=== PATIENT | female | born 1990 | race Caucasian/White ===

== ENCOUNTER 2024-07-14 05:03 | Inpatient (IN) | payer BC, SELFPAY ==
[2024-07-14] VITALS (57 sets, daily range): BP systolic 101–150; BP diastolic 45–101; PULSE 71–236; RESP 12–18; TEMP 36.4–37; O2SAT 97–100; BMI 35.2
--- OUTSIDE RECORDS SUMMARY | 2024-07-14 05:40 | XMS_ITS | Encounter Summary ---
Author Organization [facility] Health Address [address] [place] [address] Care Team Providers Care Curriculum Manager Name Role Phone Lala Riggs PA-C Primary Care Provider [phone] Lala Riggs PA-C Unavailable [phone] Marck Bonner MD Unavailable [phone] Haylie Yun [facility] Unavailable Unavailable Reason for Visit * Reason Onset Date Comments MEDICATION REFILL 09/25/2023 Encounter Details Date Type Department Care Team (Late st Contact Info) Description 09/25/2023 Refill [facility] Behavioral Health [address] [place] [phone] Chelsie Monet, WASTE COTTON CLEANER-STEMHOLE BORER [address] [place], [place] [id number] MEDICATION REFILL Social History Tobacco Use Types Packs/Day Years Used Date Smoking Tobacco: Never Passive Smoke Exposure: Never Smokeless Tobacco: Never Alcohol Use Standard Drinks/Week Comments Not Currently 0 (1 standard drink = 0.6 oz pur e alcohol) AUDIT-C Answer Date Recorded Q1: How often do you have a drink containing alcohol? Never 06/15/2023 Q2: How many drinks containi ng alcohol do you have on a typical day when you are drinking? Patient does not drink Q3: How often do you have si x or more drinks on one occasion? Never 06/15/2023 Overall Financial Resource Strain (CARDIA) Answe r Date Recorded How hard is it for you to pa y for the very basics like food, housing, medical care, and heating? Not hard at all 09/08/2022 PHQ-2 Answer Date Recorded Patient Health Questionnaire-2 Score 0 08/25/2023 [facility] - Occupational Stress Questionnaire Answer Date Recorded Do you feel stress - tense, restless, nervous, or anxious, or unable to sleep at night because your mind is troubled all the time - these days? Not at all 09/08/2022 Hunger Vital Sign Answer Date Recorded Within the past 12 months, y ou worried that your food would run out before you got the money to buy more. Never true 09/09/19 Within the past 12 months, t he food you bought just didn't last and you didn't have money to get more. Never true 09/08/2022 PRAPARE - Transportation Answer Date Re corded In the past 12 months, has l ack of transportation kept you from medical appointments or from getting medications? No 08/30 In the past 12 months, has l ack of transportation kept you from meetings, work, or from getting things needed for daily living? No 09/08/2022 Housing Stability Vital Sign Answer Shashi e Recorded In the last 12 months, was t here a time when you were not able to pay the mortgage or rent on time? No 09/08/2022 In the last 12 months, how many places have you lived? 1 09/08/2022 In the last 12 months, was t here a time when you did not have a steady place to sleep or slept in a fdc (including now)? No 09/08/2022 Gloster Depression Scale Answer Date Recorded Gloster Depression Scale Total 10 09/17/2022 The thought of harming myself has occurred to me . Never 09/17/2022 Sex and Gender Information Value Date Recorded Sex Assigned at Female 09/09/2022 10:15 AM CDT Gender Identity Female 09/09/2022 10:15 AM CDT Sexual Orientation Straight 09/09/2022 10 :15 AM CDT documented as of this encounter Functional Status Functional Status Response Date of Assess ment Is person deaf or have serious hearing difficult y? No 09/08/2022 Is person blind or have serious difficulty seein g? No 09/08/2022 Does person have serious dif ficulty walking/climbing stairs? No 09/08/2022 Does person have difficulty dressing/bathing? No 09/08/2022 Does person have difficulty doing errands alone? No 09/08/2022 Cognitive Status Response Date of Assessm ent Does person have difficulty concentrating/remembering/making decisions? No 09/08/2022 documented as of this encounter Miscellaneous Notes * Telephone Encounter - Roshni Diaz RN - 09/25/2023 11:59 AM CDT Should have one refill due documented in this encounter Plan of Treatment Upcoming Encounters Date Type Department Care Team (Late st Contact Info) Description 08/08/2024 10:40 AM CDT Video Visit [facility] Behavioral Health [address] [place] [phone] Aron Allred MD [address] [place] [phone] Chelsie Monet, [employer] CLE[employer]ER-[employer] B[employer]ER [address] [place], [place] [phone] documented as of this encounter Visit Diagnoses Diagnosis Personality disorder (HCC) Unspecified personality disorder Anxiety with depression documented in this encounter Care Teams Curriculum Manager Relationship Specialty Start Date End Date Lala Riggs PA-C [facility] [place] [address] PCP - General Physician [employer] Newscast Producer 09/08/22 Lala Riggs PA-C [facility] [place] [address] Physician [employer]sc[employer] Producer 09/08/22 Marck Bonner MD [address] [address] Gastroenterology 02/09/15 Haylie Yun LCPC Behavioral Health Therapist 07/30/23 documented as of this encounter
--- OUTSIDE RECORDS SUMMARY | 2024-07-14 05:40 | XMS_ITS | Encounter Summary ---
Author Organization [facility] Address [address] [place] [address] Care Team Providers Care Rubber Engraver Name Role Phone Lala Riggs PA-C Primary Care Provider Lala Riggs PA-C Primary Care Provider [phone] Lala Riggs PA-C Unavailable [phone] Marck Bonner MD Unavailable [phone] Haylie Yun LCPC Unavailable Unavailable Reason for Visit * Reason Onset Date Comments MEDICATION REFILL 08/15/2019 Encounter Details Date Type Department Care Team (Late st Contact Info) Description 08/15/2019 Refill [facility] - Family Medicine [address] [place] [address] Lala Riggs PA-C [address] [place] [phone] MEDICATION REFILL Social History Tobacco Use Types Packs/Day Years Used Date Smoking Tobacco: Never Smokeless Tobacco: Never Alcohol Use Standard Drinks/Week Comments No 0 (1 standard drink = 0.6 oz pur e alcohol) Sex and Gender Information Value Date Recorded Sex Assigned at Female 09/09/2022 10:15 AM CDT Gender Identity Female 09/09/2022 10:15 AM CDT Sexual Orientation Straight 09/09/2022 10 :15 AM CDT documented as of this encounter Plan of Treatment Upcoming Encounters Date Type Department Care Team (Late st Contact Info) Description 08/08/2024 10:40 AM CDT Video Visit [facility] Behavioral Health [address] [place] [address] Aron Allred MD [address] [place] [phone] Chelsie Monet, DIRECTOR SPEECH AND HEARING-BAND HEAD SAW OPERATOR [address] [place] [address] documented as of this encounter Visit Diagnoses Not on filedocumented in this encounter Additional Health Concerns Infection Onset Date Last Indicated Resolved Time COVID-19 Under Investigation 04/17/2020 04/17/2020 04/19/2020 9:39 PM SPRINKLER FITTER COVID-19 Under Investigation 07/19/2020 07/19/2020 07/20/2020 3:42 AM SPRINKLER FITTER COVID-19 Under Investigation 05/03/2021 05/03/2021 05/04/2021 5:11 AM SPRINKLER FITTER COVID-19 Under Investigation 06/10/2021 06/10/2021 06/11/2021 1:46 PM SPRINKLER FITTER COVID-19 Confirmed 06/10/2021 06/10/2021 4:33 AM SPRINKLER FITTER COVID-19 Under Investigation 06/03/2023 06/03/2023 06/04/2023 5:11 AM SPRINKLER FITTER documented as of this encounter Care Teams Rubber Engraver Relationship Specialty Start Date End Date Lala Riggs PA-C [address] [place] [phone] PCP - General Physician Dredge Pipeman 10/18/12 09/07/22 Lala Riggs PA-C [address] [place] [phone] PCP - General Physician Dredge Pipeman 09/08/22 Lala Riggs PA-C [address] [place] [phone] Physician Dredge Pipeman 09/08/22 Marck Bonner MD [address] [address] Gastroenterology 02/09/15 Haylie Yun LC[facility] Behavioral Health Therapist 07/30/23 documented as of this encounter
--- OUTSIDE RECORDS SUMMARY | 2024-07-14 05:40 | XMS_ITS | Patient Health Summary ---
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 [facility] - 08/04/2023 12:34 PM LIVESTOCK PRODUCER HbA1c Interpretation: Normal: < 5.7% Pre-diabetes: 5.7-6.4% Diabetes: Equal to or greater than 6.5% Test results diagnostic of diabetes should be repeated for confirmation. Treatment target values recommended by ADA and other clinical organizations should be used to evaluate metabolic control in patients. This test should not replace glucose testing for patients with Type 1 diabetes, pediatric patients, or women. Falsely low HbA1c results may be observed in patients with clinical conditions that shorten erythrocyte life span or decrease mean erythrocyte age such as the presence of unstable hemoglobin variants, elevated hemoglobin F level or other causes of hemolytic anemia. HbA1c may not accurately reflect glycemic control when clinical conditions that affect erythrocyte survival are present. Severe Iron deficiency anemia may yield falsely high results. Hemoglobin A1c assay should not be used to diagnose or monitor diabetes in patients with malignancy, recent blood transfusion, chronic kidney or liver disease. This method may yield falsely low results when hemoglobin (HbF) exceeds 5% in the specimen. The Coffman Alinity assay for the measurement of HbA1c is a National Glycohemoglobin Standardization Program (NGSP) certified method. Lala Riggs PA-C LAB - CHEMISTRY DIDI VAZQUEZ Performing Organization Address City/State/[facility] Co de Phone Number [facility] [address] * (ABNORMAL) CBC WITH DIFFERENTIAL (08/04/2023 8:11 AM [facility]) Only the most recent of17 resultswithin the time period is included. [facility] Signature WBC 5.6 4.0 - 10.7 x10E9/L 08/04/2023 12:[address] [facility] RBC Count 5.00 3.90 - 5.20 x10E12/L 08/04/2023 12:[address] [facility] Hemoglobin 12.9 11.9 - 15.8 g/dL 08/04/2023 12:[address] [facility] Hematocrit 41.2 34.8 - 46.1 % 08/04/2023 12:[address] [facility] MCV 82.4 80.0 - 98.0 fL 08/04/2023 12:[address] [facility] MCH 25.8(L) 26.7 - 33.6 pg 08/04/2023 12:[address] [facility] MCHC 31.3(L) 31.7 - 36.3 g/dL 08/04/2023 12:[address] [facility] RDW-CV 14.2 11.3 - 14.8 % 08/04/2023 12:[address] [facility] Platelet Count 258 150 - 420 x10E9/L 08/04/2023 12:[address] [facility] MPV 9.8 7.8 - 11.4 fL 08/04/2023 12:[address] [facility] Neutrophil % 56.3 41.0 - 74.0 % 08/04/2023 12:[address] [facility] Lymphocyte % 32.3 17.0 - 47.0 % 08/04/2023 12:[address] [facility] Monocyte % 6.4 3.0 - 11.0 % 08/04/2023 12:[address] [facility] Eosinophil % 3.4 0.0 - 7.0 % 08/04/2023 12:[address] [facility] Basophil % 1.2 0.0 - 1.6 % 08/04/2023 12:[address] [facility] Immature Granulocytes % 0.4 0.0 - 1.0 % 08/04/2023 12:[address] [facility] Neutrophil Absolute 3.17 1.60 - 7.50 x10E9/L 08/04/2023 12:[address] [facility] Lymphocyte Absolute 1.82 1.00 - 4.40 x10E9/L 08/04/2023 12:[address] [facility] Monocyte Absolute 0.36 0.15 - 1.00 x10E9/L 08/04/2023 12:[address] [facility] Eosinophil Absolute 0.19 0.00 - 0.60 x10E9/L 08/04/2023 12:[address] [facility] Basophil Absolute 0.07 0.00 - 0.13 x10E9/L 08/04/2023 12:[address] [facility] Blood BLOOD SPECIMEN / Unknown Venipuncture / Unknown 08/04/2023 8:11 AM LIVESTOCK PRODUCER 08/04/2023 8:11 AM [facility] Lala Riggs PA-C LAB - HEMATOLOGY ORD ERABLES Performing Organization Address [facility]/State/[facility] Co de Phone Number [facility] [address] * (ABNORMAL) LIPID PROFILE (08/04/2023 8:11 AM [facility]) Only the most recent of6 resultswithin the time period is included. Cholesterol 183 <200 mg/dL 08/04/2023 12:[address] [facility] Triglycerides 247(H) <150 mg/dL 08/04/2023 12:[address] [facility] HDL Cholesterol 31(L) >40 mg/dL 12:[address] [facility] Chol HDL Ratio 5.9 1.0 - 6.0 08/04/2023 12:[address] [facility] LDL Calculated 103 65 - 130 mg/dL 08/04/2023 12:[address] [facility] VLDL Calculated 49(H) <=30 mg/dL 12:[address] [facility] Blood BLOOD SPECIMEN / Unknown Venipuncture / Unknown 08/04/2023 8:11 AM [facility] 08/04/2023 8:11 AM [facility] - 08/04/2023 12:46 PM [facility] Lipid Profile Comment: CHOLESTEROL LEVEL..................CLINICAL INTERPRETATION LESS THAN 200 MG/DL..............................DESIRABLE 200-239 MG/DL..............................BORDERLINE HIGH GREATER THAN 240 MG/DL................................HIGH LDL-CHOLESTEROL LEVEL..............CLINICAL INTERPRETATION LESS THAN 100 MG/DL................................OPTIMAL 100-129 MG/DL.................................NEAR OPTIMAL GREATER THAN 160 MG/DL...........................HIGH RISK HDL RISK LEVEL GREATER THEN 60 MG/DL............................DECREASED 40-60 MG/DL........................................AVERAGE LESS THAN 40 MG/DL...............................INCREASED TRIGLYCERIDE LEVEL..................CLINICAL INTERPRETATION LESS THAN 150 MG/DL...............................DESIRABLE 150-199 MG/DL...............................BORDERLINE HIGH 200-499 MG/DL..........................................HIGH GREATER THAN 500..................................VERY HIGH THE NATIONAL CHOLESTEROL EDUCATION PROGRAM HAS SET THE ABOVE GUIDELINES (REFERANCE VALUES) FOR CHOLESTEROL AND HDL. RISK ASSOCIATED WITH CHOLESTEROL/HDL RATIOS RISK....................MALE RATIO.............FEMALE RATIO 1/2 AVERAGE.................<3.4.......................<3.3 LOW RISK.................... 4.0 ...................... 3.8 AVERAGE..................... 5.0 ...................... 4.5 2X AVERAGE.................. 9.5 ...................... 7.0 3X AVERAGE...................>23........................>11 Lala Riggs PA-C LAB - CHEMISTRY DIDI VAZQUEZ [facility] [address] [place], [place] [id number] [place] [address] * PAP IG LB +HPV APTIMA REFLEX 16,18/45 (07/07/2023 12:15 PM LIVESTOCK PRODUCER) Diagnosis [facility] INSURANCE BILL Comment:NEGATIVE FOR INTRAEP ITHELIAL LESION OR MALIGNANCY. Specimen Adequacy [facility] INSURANCE BILL Comment: Satisfactory for evaluation. Endocervical and/or squamous metaplastic cells (endocervical component) are present. Clinician Provided ICD10 [facility] INSURANCE BILL Comment: Z01.419 Z30.41 Performed by [facility] INSURANCE BILL Comment:Sue Pate, Cyto technologist (ASCP) Comment . [facility] INSURANCE BILL Note [facility] INSURANCE BILL Comment: The Pap smear is a screening test designed to aid in the detection of premalignant and malignant conditions of the uterine cervix. It is not a diagnostic procedure and should not be used as the sole means of detecting cervical cancer. Both false-positive and false-negative reports do occur. . [facility] CPT Code Automation [facility] INSURANCE BILL Comment: This liquid based ThinPrep(R) pap test was screened with the use of an image guided system. Human papillomavirus Aptima Negative Negative [facility] INSURANCE BILL Comment: This nucleic acid amplification test detects fourteen high-risk HPV types (16,18,31,33,35,39,45,51,52,56,58,59,66,68) without differentiation. HPV Genotype Reflexed [facility] INSURANCE BILL Comment:Criteria not met, HP V Genotype not performed. PART OF UTERINE CERVIX / Unknown 07/07/2023 12:15 PM LIVESTOCK PRODUCER 07/07/2023 Narrative [facility] INSURANCE BILL - 07/10/2023 1:10 PM LIVESTOCK PRODUCER LMP / Prev Treat...[id number];None Other..............Oral Contraceptives No. of containers..01 ThinPrep Vial Resulting Agency Comment Lab Testing performed at: [facility] [phone] Amaya FARRAR LAB - PATHOLOGY/CYTO LOGY ORDERABLES [facility] INSURANCE BILL [address] [place] [address] * STREP A SCREEN - POINT OF CARE (AMB) [facility] (06/03/2023 10:46 AM LIVESTOCK PRODUCER) Only the most recent of3 resultswithin the time period is included. Strep A Rapid POCT Negative Negative [facility] Strep A Rapid Screen Internal Control POCT Present [facility] Throat ENTIRE THROAT (SURFACE REGION OF NECK) / Unknown 06/03/2023 10:46 AM LIVESTOCK PRODUCER Lala Riggs PA-C LAB - POINT OF CARE ORDERABLES [facility] [address] [phone] * SARS-COV-2 (COVID-19)+INFLUENZA A+B+RSV PCR (06/03/2023 10:36 AM LIVESTOCK PRODUCER) Pathologist [facility] COVID-19 PCR Not detected Not detected 06/04/2023 5:11 AM LIVESTOCK PRODUCER [facility] Influenza A PCR Not detected Not detected 06/04/2023 5:11 AM LIVESTOCK PRODUCER [facility] Influenza B PCR Not detected Not detected 06/04/2023 5:11 AM LIVESTOCK PRODUCER [facility] RSV PCR Not detected Not detected 06/04/2023 5:11 AM LIVESTOCK PRODUCER [facility] Microbiology SPECIMEN FROM NASOPHARYNGEAL STRUCTURE / Unknown Collection / Unknown 06/03/2023 10:36 AM LIVESTOCK PRODUCER 06/03/2023 10:36 AM LIVESTOCK PRODUCER Narrative [facility]CRO[facility] - 06/04/2023 5:11 AM LIVESTOCK PRODUCER This nucleic acid amplification assay has been authorized by the Food and Drug administration (FDA) under an Emergency Use Authorization (EUA). This test is only authorized for the duration of time the declaration that circumstances exist justifying the authorization of emergency use of in vitro diagnostic tests for detection of SARS-CoV-2 virus and/or diagnosis of COVID-19 infection under section 564(b)(1) of the Act, 21 U.S.C 360bbb-3 (b)(1), unless the authorization is terminated or revoked sooner. Fact Sheets for this EUA assay are available upon request. Lala Riggs PA-C LAB - MICROBIOLOGY O RDERABLES [facility] [address] [place], [place] [address] [place] [address] * (ABNORMAL) VITAMIN B12 FOLATE PANEL (11/03/2022 1:42 PM CDT) Vitamin B12 824(H) 213 - 816 pg/mL 11/03/2022 5:50 PM CDT [facility] Folate 16.5 7.0 - 31.4 ng/mL 11/03/2022 5:50 PM CDT [facility] Blood BLOOD SPECIMEN / Unknown Venipuncture / Unknown 11/03/2022 1:42 PM CDT 11/03/2022 1:42 PM CDT Lala Riggs PA-C LAB - CHEMISTRY DIDI VAZQUEZ Performing Organization Address [facility]/ZIP Co de Phone Number [facility] [address] * IMAGING RADIOLOGY XRAY RESULTS ORDER (09/12/2022 4:03 PM CDT) Anatomical Region Laterality Modality Other Narrative 09/12/2022 4:03 PM CDT Ordered by an unspecified provider. Scanned Document IMAGING * PATHOLOGY TISSUE EXAM (STL) (09/09/2022 6:56 AM CDT) Case Report Surgical Pathology Report Case: [id number] Authorizing Provider: Dyana Elizalde MD Collected: 09/09/2022 06:56 AM Ordering Location: [facility] 5 LDR Received: 09/10/2022 08:01 AM Pathologist: Nubia Harrison MD Specimen: Placenta 09/11/2022 10:18 AM CDT [facility] Final Diagnosis Placenta, vaginal delivery - Small, hypermature placenta (weight <10th percentile for gestational age) - Lymphohistiocytic villitis (see comment) - Minimal acute chorioamnionitis (maternal inflammatory response stage 2, grade 1) - Minimal acute chorionic plate vasculitis ( inflammatory response stage 1, grade 1) 09/11/2022 10:18 AM [facility] Clinical History The patient is a 32-year-old woman at 31 weeks, 5 days gestation, with premature rupture of membranes and labor. Procedure: vaginal delivery. 09/11/2022 10:18 AM [facility] Gross Description The specimen is identified with the patient's name and date of . Received fresh and placed in formalin, specimen A, placenta is a placental disc with attached umbilical cord and membranes. The umbilical cord is inserted centrally, 5.5 cm from margin measuring 15.3 cm long and a pink-burns diameter. The cord is trivascular and appropriately coiled. The membranes are inserted marginally and pink-burns, mildly translucent. The surface is blue-purple with normal vasculature. The maternal surface is disrupted but appears complete with scattered burns discoloration involving 5% of the surface, eccentrically. The placental disc is 264 g, 15 x 12.5 x 2.2 cm. Sectioning shows red-brown, spongy cut surfaces. Knitter Mechanic sections submitted as follows: A1-umbilical cord and membrane roll, A2-placental disc central, A3-placental disc peripheral, A4-ubrns maternal surface discoloration. LJ 09/11/2022 10:18 AM [facility] Microscopic Description Microscopic examination substantiates the above diagnosis. In most cases of villitis, an etiology cannot be established; however, villitis may be seen in infections spread hematogenously from mother to fetus such as CMV, syphilis, toxoplasmosis, and others. Infant and maternal serologies may be helpful if clinically indicated. 09/11/2022 10:18 AM [facility] Disclaimer All histochemical and/or immunohistochemical results are interpreted with controls that demonstrate appropriate staining reactions before reporting results. Note on use of immunocytochemistry reagents: This test was developed and its performance characteristic determined by [facility], Department of Laboratory Medicine. It has not been cleared or approved by the U.S. Food and Drug Administration (FDA). The FDA has determined that such clearance or approval is not necessary. The test is used for clinical purpose. It should not be regarded as investigational or for research. This laboratory is certified to perform high complexity testing. The performance characteristics of the IHC/KING assays have been validated on formalin-fixed paraffin embedded tissues only. The assays have not been validated on decalcified tissues. Results should be interpreted with caution. 09/11/2022 10:18 AM CDT [facility] Embedded Images 09/11/2022 10:18 AM CDT [facility] Pathology/Cytolo gy ENTIRE PLACENTA / Unknown Collection / Unknown 09/09/2022 6:56 AM CDT 09/10/2022 8:01 AM CDT Dyana Elizalde MD LAB - PATHOLOGY/CYTO LOGY ORDERABLES [facility] [address] [place] [address] * (ABNORMAL) BLOOD GASES CORD MEGHAN (ISTAT) (09/09/2022 6:27 AM CDT) pH Cord Venous POCT 7.36 7.28 - 7.40 pH 09/30/2022 11:59 AM CDT [facility] pCO2 Cord Venous POCT 30.8(L) 35 - 45 mm hg 09/30/2022 11:59 AM T [facility] pO2 Cord Venous POCT 29 22 - 33 mm hg 09/30/2022 11:59 AM T [facility] HCO3 Cord Arterial POCT 17.2(L) 22 - 24 mmol/L 09/30/2022 11:59 AM CDT [facility] BE Cord Venous POCT Calc -7(L) -6.4 - 1.6 mmol/L 09/30/2022 11:59 AM CDT [facility] TCO2 Cord Venous POCT 18(L) 22 - 30 mmol/L 09/30/2022 11:59 AM [facility] O2 Saturation % Cord Venous Calc POCT 54 % 09/30/2022 11:59 AM CDT [facility] Site CORD MEGHAN 09/30/2022 11:59 AM CDT [facility] Sample iSTAT CORD MEGHAN 09/30/2022 11:59 AM CDT [facility] Blood CORD BLOOD SPECIMEN / Unknown 09/09/2022 6:27 AM CDT 09/30/2022 11:59 AM CDT Ambrosio Bee MD LAB - POINT OF CARE ORDERABLES Performing Organization Address City/[facility]/ZIP Co de Phone Number [facility] [address] [place] [address] * (ABNORMAL) BLOOD GASES CORD ART (ISTAT) (09/09/2022 6:23 AM CDT) pH Cord Arterial POCT 7.30 7.20 - 7.34 pH 09/30/2022 11:59 AM CDT [facility] pCO2 Cord Arterial POCT 39.8(L) 45 - 55 mm hg 09/30/2022 11:59 AM CDT [facility] pO2 Cord Arterial POCT 24 12 - 25 mm hg 09/30/2022 11:59 AM CDT [facility] HCO3 Cord Arterial POCT 19.4(L) 22 - 24 mmol/L 09/30/2022 11:59 AM CDT [facility] BE Cord Arterial POCT -7(L) -2.9 - 8.3 mmol/L 09/30/2022 11:59 AM CDT [facility] TCO2 Cord Arterial POCT 21 mmol/L 09/30/2022 11:59 AM CDT [facility] O2 Saturation Cord Art % Calc POCT 36 % 09/30/2022 11:59 AM CDT [facility] Site CORD ART 09/30/2022 11:59 AM CDT [facility] Sample iSTAT CORD ART 09/30/2022 11:59 AM CDT [facility] Blood CORD BLOOD SPECIMEN / Unknown 09/09/2022 6:23 AM CDT 09/30/2022 11:59 AM CDT Ambrosio Bee MD LAB - POINT OF CARE ORDERABLES Performing Organization Address City/[facility]/ZIP Co de Phone Number [facility] [address] [place] [address] * DRUG ABUSE URINE PANEL (09/08/2022 4:53 PM CDT) Amphetamines Screen Urine Not detected Not detected 09/08/2022 5:26 PM CDT [facility] Barbiturates Screen Urine Not detected Not detected 09/08/2022 5:26 PM CDT [facility] Benzodiazepines Screen Urine Not detected Not detected 09/08/2022 5:26 PM CDT [facility] Cocaine Screen Urine Not detected Not detected 09/08/2022 5:26 PM CDT [facility] Fentanyl Urine Not detected Not detected 09/08/2022 5:26 PM CDT [facility] Methadone Screen Urine Not detected Not detected 09/08/2022 5:26 PM CDT [facility] Opiate Screen Urine Not detected Not detected 09/08/2022 5:26 PM CDT [facility] Phencyclidine Screen Urine Not detected Not detected 09/08/2022 5:26 PM CDT [facility] Urine URINE / Unknown Collection / Unknown 09/08/2022 4:53 PM CDT 09/08/2022 5:00 PM CDT Narrative [facility] - 09/08/2022 5:26 PM CDT This drug screen is designed for MEDICAL purposes only. It is not to be used for legal purposes, including but not limited to worker's comp, police investigations, occupational issues, child custody, etc. Any positive result is only presumptive and must be confirmed with a separate confirmatory test ordered by the physician. Drug Screening Test Cutoff Values: AMPHETAMINES 1000 ng/mL BARBITURATES 200 ng/mL BENZODIAZEPINES 200 ng/mL COCAINE 300 ng/mL FENTANYL 1 ng/mL METHADONE 300 ng/mL OPIATES 300 ng/mL PHENCYCLIDINE(PCP) 25 ng/mL Ambrosio Bee MD LAB - URINE CHEMISTR Y ORDERABLES [facility] [address] [place] [address] * (ABNORMAL) URINE MICROSCOPIC ONLY REFLEX TO CULTURE (09/08/2022 4:48 PM CDT) Only the most recent of5 resultswithin the time period is included. Reflex Status Culture not indicated 09/08/2022 5:19 PM CDT [facility] RBC UA 3-5 0 - 5 # /hpf 09/08/2022 5:19 PM CDT [facility] WBC UA 0-5 0 - 5 # /hpf 09/08/2022 5:19 PM CDT [facility] Bacteria UA Trace(A) None Seen 09/08/2022 5:19 PM CDT [facility] Squamous Epithelial Cells None Seen 0 - 5 /hpf 09/08/2022 5:19 PM CDT [facility] Mucus UA 1+ /LPF 09/08/2022 5:19 PM CDT [facility] Urine URINE SPECIMEN OBTAINED BY CLEAN CATCH PROCEDURE / Unknown Collection / Unknown 09/08/2022 4:48 PM CDT 09/08/2022 4:59 PM CDT [facility] - 09/08/2022 5:19 PM CDT Ambrosio Bee MD LAB - URINALYSIS ORD ERABLES [facility] [address] [place], [place] [id number] * (ABNORMAL) URINALYSIS REFLEX MICROSCOPIC REFLEX CULTURE (09/08/2022 4:48 PM CDT) Only the most recent of5 resultswithin the time period is included. Color UA Colorless(A) Straw, Yellow 09/08/2022 5:14 PM CDT [facility] Clarity UA Clear Clear 09/08/2022 5:14 PM CDT [facility] Glucose UA Negative Negative 09/08/2022 5:14 PM CDT [facility] Bilirubin UA Negative Negative 09/08/2022 5:14 PM CDT [facility] Ketone UA 1+(A) Negative 09/08/2022 5:14 PM CDT [facility] Specific [place] UA 1.006 1.005 - 1.030 09/08/2022 5:14 PM CDT [facility] Blood UA 1+(A) Negative 09/08/2022 5:14 PM CDT [facility] pH UA 7.0 5.0 - 8.0 pH 09/08/2022 5:14 PM CDT [facility] Protein UA Negative Negative 09/08/2022 5:14 PM CDT [facility] Urobilinogen UA Negative Negative mg/dL 09/08/2022 5:14 PM CDT [facility] Nitrite UA Negative Negative 09/08/2022 5:14 PM CDT [facility] Leukocyte UA Negative Negative 09/08/2022 5:14 PM CDT [facility] Urine Microscopy Urine microscopy to follow 09/08/2022 5:14 PM CDT [facility] Reflex Status Culture not indicated 09/08/2022 5:14 PM CDT [facility] Urine URINE SPECIMEN OBTAINED BY CLEAN CATCH PROCEDURE / Unknown Collection / Unknown 09/08/2022 4:48 PM CDT 09/08/2022 4:59 PM CDT Narrative [facility] - 09/08/2022 5:14 PM CDT Ambrosio Bee MD LAB - URINALYSIS ORD ERABLES Performing Organization Address City/[facility] Co de Phone Number [facility] [address] [place] [place] [address] [phone] * TRICHOMONAS RAPID TEST (09/08/2022 4:48 PM CDT) Trichomonas Rapid Test Negative Negative 09/08/2022 5:30 PM CDT [facility] Microbiology VAGINAL SWAB / Unknown Collection / Unknown 09/08/2022 4:48 PM CDT 09/08/2022 4:59 PM CDT Ambrosio Bee MD LAB - MICROBIOLOGY O RDERABLES Performing Organization Address City/[facility]/ZIP Co de Phone Number [facility] [address] [place] [id number] * CHLAMYDIA + GC AMPLIFIED PROBE (09/08/2022 4:47 PM CDT) Chlamydia Amplified Probe Negative Negative 09/09/2022 2:18 AM CDT [facility] GC Amplified Probe Negative Negative 09/09/2022 2:18 AM CDT [facility] Microbiology ENTIRE VAGINA / Unknown Collection / Unknown 09/08/2022 4:47 PM CDT 09/08/2022 4:59 PM CDT Narrative [facility] - 09/09/2022 2:18 AM CDT Results based on detection/no detection of ribosomal RNA by amplified method. Ambrosio Bee MD LAB - MICROBIOLOGY O RDERANAI Performing Organization Address City/[facility]/ZIP Co de Phone Number [facility] [address] [place] [address], [facility] [phone] * BLOOD TYPE VERIFICATION (09/08/2022 4:09 PM CDT) ABO Rh O POS 09/08/2022 5:18 PM CDT [facility] Comment:History checked. Blood Bank BLOOD SPECIMEN / Unknown Lab Venipuncture / Unknown 09/08/2022 4:09 PM CDT 09/08/2022 4:16 PM CDT Eliu Zaidi MD LAB - BLOOD BANK ORD ERABLES Performing Organization Address [facility] Co de Phone Number [facility] [address] [place] [address] * FERRITIN (09/08/2022 4:07 PM CDT) Ferritin 36 5 - 204 ng/mL 09/08/2022 4:58 PM CDT [facility] Blood BLOOD SPECIMEN / Unknown Lab Venipuncture / Unknown 09/08/2022 4:07 PM CDT 09/08/2022 4:16 PM CDT Ambrosio Bee MD LAB - CHEMISTRY DIDI VAZQUEZ Performing Organization Address [facility] Co de Phone Number [facility] [address] [place] [address] * TYPE + SCREEN PANEL (ALL [facility] except [facility]) (09/08/2022 4:03 PM CDT) ABO Rh O POS 09/08/2022 5:18 PM CDT [facility] Comment:No history; collect retype. Antibody Screen NEG 5:18 PM CDT [facility] Blood Bank BLOOD SPECIMEN / Unknown Lab Venipuncture / Unknown 09/08/2022 4:03 PM CDT 09/08/2022 4:16 PM CDT Ambrosio Bee MD LAB - BLOOD BANK ORD ERABLES Performing Organization Address City/[facility]/ZIP Co de Phone Number [facility] [address] [place] [address], [facility] [phone] * CULTURE STREP B (09/08/2022 11:38 AM CDT) Culture Strep B Negative for beta-hemolytic Streptococcus Group B LEVON 09/12/2022 8:49 AM CDT [facility] Microbiology MISCELLANEOUS SAMPLES / Unknown Collection / Unknown 09/08/2022 11:38 AM CDT 09/08/2022 11:46 AM CDT Perla Mendez MD LAB - MICROBIOLOGY O RDERABLES Performing Organization Address City/[facility]/ZIP Co de Phone Number [facility] [address] [place] [address], [facility] [phone] * (ABNORMAL) RUPTURE OF MEMBRANES EVAL (09/08/2022 10:10 AM CDT) RUPTURE OF MEMBRANES POSITIVE(A ) NEGATIVE 09/08/2022 10:37 AM CDT [facility] Fluid VAGINAL SWAB / Unknown Collection / Unknown 09/08/2022 10:10 AM CDT 09/08/2022 10:13 AM CDT Narrative AM LABORATORY - 09/08/2022 10:37 AM CDT A rupture of membranes diagnosis should not be based on any single test and the results should be interpreted in conjunction with other clinical information. This test may report positive results in patients with intact membranes and therefore decisions to induce labor should not be based solely on the ROM Plus test results. ROM Plus test kits will function properly with trace amounts of blood in the sample. Significant amounts of bloody discharge may cause the test to malfunction and testing of these samples is not recommended. Elevated serum, urine, cord blood, and amniotic fluid as well as maternal serum levels of AFP have been reported in the literature in various developmental disorders such as neural-tube defects, hypothyroidism, autoimmune states, congenital heart defects, cystic fibrosis, etc. ROM Plus has not been evaluated for potential interference in these conditions. Perla Mendez MD LAB - BODY FLUID ORD ERABLES [facility] [address] [place] [address], [facility] * (ABNORMAL) URINALYSIS - POCT (IP) BEAKER INTERFACE (11/18/2021 10:46 AM CDT) Color UA POCT Yellow Straw, Yellow, Light Yellow 11/18/2021 10:41 AM CDT [facility] Clarity UA POCT Clear Clear 2 10:41 AM CDT [facility] Specific [place] UA POCT 1.020 1.005 - 1.030 11/18/2021 10:41 AM CDT [facility] pH UA POCT 7.5 5.0 - 8.5 pH 11/18/2021 10:41 AM CDT [facility] Protein UA POCT Negative Negative 2 10:41 AM CDT [facility] Blood UA POCT Trace-intac t Negative, Trace-lysed , Trace-intac t 11/18/2021 10:41 AM CDT [facility] Leukocyte UA POCT Trace(A) Negative 11/18/2021 10:41 AM CDT [facility] Nitrite UA POCT Negative Negative 2 10:41 AM CDT [facility] Glucose UA POCT Negative Negative 2 10:41 AM CDT [facility] Ketone UA POCT Negative Negative 11/18/2021 10:41 AM CDT [facility] Bilirubin UA POCT Negative Negative 11/18/2021 10:41 AM CDT [facility] Urobilinogen UA POCT 0.2 0.2 - 1.0 EU/dL 11/18/2021 10:41 AM T [facility] Urine URINE / Unknown 11/18/2021 1 0:46 AM CDT 11/18/2021 10:41 AM CDT Alberta Bowie METALLIC YARN SLITTING MACHINE OPERATOR-ANATOMIC PATHOLOGIST LAB - POINT OF CARE ORDERABLES Performing Organization Address [facility]/ZIP Co de Phone Number [facility] [address] * URINALYSIS - POCT (IP) NOTIFICATION (11/18/2021 10:33 AM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 BREAST LEFT LTD 03/10/2017 9:09 AM HISTORY: Other chest pain. FINDINGS AND IMPRESSION: Limited left breast ultrasound performed at 1 o'clock to 5 o'clock. The patient has pain in the area. No underlying pathology is seen. Edited by Kelly Herman on 03/10/2017 9:17 AM Lala Riggs PA-C US ORDERABLES * CARDIAC RHYTHM STRIP ORDER (02/16/2017 1:51 PM CDT) Only the most recent of2 resultswithin the time period is included. Narrative 02/16/2017 1:51 PM CDT Ordered by an unspecified provider. Scanned Document CARDIAC SERVICES ORD ERABLES * CULTURE THROAT (12/05/2016 9:23 AM CDT) Culture Growth of normal oropharyngeal paty LEVON 12/09/2016 8:15 AM CDT [facility] Microbiology ENTIRE THROAT (SURFACE REGION OF NECK) / Unknown Collection / Unknown 12/05/2016 9:23 AM CDT 12/05/2016 9:23 AM CDT Lala Riggs PA-C LAB - MICROBIOLOGY O RDERABLES Performing Organization Address City/State/[facility] Co de Phone Number [facility] [address] * VITAMIN D 25-HYDROXY (11/15/2016 7:37 AM CDT) Vitamin D, 25 Hydroxy 51.9 30 - 100 ng/mL 11/15/2016 10:13 AM CDT [facility] Blood BLOOD SPECIMEN / Unknown Lab Venipuncture / Unknown 11/15/2016 7:37 AM CDT 11/15/2016 7:47 AM CDT Narrative [facility] - 11/15/2016 10:13 AM CDT Reference Values: The recommendation for 25-Hydroxy Vitamin D clinical decision points are as follows: Deficient < 20.0 ng/mL Insufficient 20.0-29.9 ng/mL Sufficient >= 30.0 ng/mL Reference: The Endocrine Society Clinical Practice Guidelines. 2011 If the 25-Hydroxy Vitamin D results are inconsistent with clinical evidence, it is recommended that follow-up testing using a method such as LC-MS/MS be performed to confirm the result. Lala Riggs PA-C LAB - CHEMISTRY DIDI VAZQUEZ Performing Organization Address [facility] Co de Phone Number [facility] [address] * (ABNORMAL) PT-INR (11/15/2016 7:37 AM CDT) PT 9.8 9.6 - 11.5 sec 11/15/2016 8:00 AM CDT [facility] INR 0.95(L) 2 - 3 11/15/2016 8:00 AM CDT [facility] Blood BLOOD SPECIMEN / Unknown Lab Venipuncture / Unknown 11/15/2016 7:37 AM CDT 11/15/2016 7:47 AM CDT Narrative [facility] - 11/15/2016 8:00 AM CDT Recommended therapeutic INR ranges for Oral Anticoagulant Therapy: 2.0-3.0 For prevention of Thrombosis or Embolism and treatment of Venous Thrombosis. 2.5- 3.5 for prevention of Recurrent Embolism or treatment of patients with Mechanical Prosthetic Heart Valves. Lala Riggs PA-C LAB - COAGULATION OR DERABLES Performing Organization Address [facility] Co de Phone Number [facility] [address] * VITAMIN B12 (11/15/2016 7:37 AM CDT) Pathologist [facility] Vitamin B12 281 213 - 816 pg/mL 11/15/2016 10:13 AM CDT [facility] Blood BLOOD SPECIMEN / Unknown Lab Venipuncture / Unknown 11/15/2016 7:37 AM CDT 11/15/2016 7:47 AM CDT Lala Riggs PA-C LAB - CHEMISTRY ORDHema VAZQUEZ Performing Organization Address [facility] Co de Phone Number [facility] [address] [place] [address] * LIPASE BLOOD (08/22/2016 3:03 AM CDT) Only the most recent of2 resultswithin the time period is included. Lipase 30 8 - 78 U/L 08/22/2016 3:31 AM CDT [facility] Blood BLOOD SPECIMEN / Unknown Lab Venipuncture / Unknown 08/22/2016 3:03 AM CDT 08/22/2016 3:06 AM CDT Carlo Thornton DO LAB - CHEMISTRY ORDE TAYLOR Performing Organization Address City/[facility] Co de Phone Number [facility] [address] [place] [address] * AMYLASE BLOOD (08/22/2016 3:03 AM CDT) Only the most recent of2 resultswithin the time period is included. Amylase 71 25 - 125 U/L 08/22/2016 3:31 AM CDT [facility] Blood BLOOD SPECIMEN / Unknown Lab Venipuncture / Unknown 08/22/2016 3:03 AM CDT 08/22/2016 3:06 AM CDT Carlo Thornton LAB - CHEMISTRY ORDHema VAZQUEZ Performing Organization Address [facility] Co de Phone Number [facility] [address] [place] [address] * HCG BLOOD QUALITATIVE (08/22/2016 3:03 AM CDT) Only the most recent of2 resultswithin the time period is included. Pathologist [facility] HCG Qual Serum Negative Negative 08/22/2016 3:21 AM CDT [facility] Blood BLOOD SPECIMEN / Unknown Lab Venipuncture / Unknown 08/22/2016 3:03 AM CDT 08/22/2016 3:06 AM CDT Carlo Thornton DO LAB - CHEMISTRY ORDHema VAZQUEZ Performing Organization Address [facility] Co de Phone Number [facility] [address] [place] [address] * XR HAND 3+ VW RIGHT (04/04/2016 9:22 AM CDT) Anatomical Region Laterality Modality Wrist / Hand Radiographic Concepcion ging 04/04/2016 9:29 AM CDT Narrative 04/04/2016 9:51 AM CDT RIGHT HAND, (THREE VIEWS): 04/04/2016 INDICATION: Pain, no trauma. Normal bony alignment. Normal bone density. No fracture. SUMMARY: Negative right hand. Procedure Note Luis Carlos Carlson MD - 04/04/2016 RIGHT HAND, (THREE VIEWS): 04/04/2016 INDICATION: Pain, no trauma. Normal bony alignment. Normal bone density. No fracture. SUMMARY: Negative right hand. Lala Riggs PA-C DIAGNOSTIC IMAGING O RDERABLES * PAP SMEAR IG RFLX HPV ASCU (PO REF LAB) (08/01/2015 3:29 PM LIVESTOCK PRODUCER) Only the most recent of2 resultswithin the time period is included. Diagnosis [facility] INSURANCE BILL Comment:NEGATIVE FOR INTRAEP ITHELIAL LESION AND MALIGNANCY. Specimen Adequacy [facility] INSURANCE BILL Comment: Satisfactory for evaluation. Endocervical and/or squamous metaplastic cells (endocervical component) are present. Clinician Provided ICD10 [facility] INSURANCE BILL Comment: Z01.419 Z30.8 Performed by [facility] INSURANCE BILL Comment:Misty Marsh, Public Relations Coordinator (ASCP) Comment . [facility] INSURANCE BILL Note [facility] INSURANCE BILL Comment: The Pap smear is a screening test designed to aid in the detection of premalignant and malignant conditions of the uterine cervix. It is not a diagnostic procedure and should not be used as the sole means of detecting cervical cancer. Both false-positive and false-negative reports do occur. . [facility] CPT Code Automation [facility] INSURANCE BILL Comment: This liquid based ThinPrep(R) pap test was screened with the use of an image guided system. Note [facility] INSURANCE BILL Comment: The HPV DNA reflex criteria were not met with this specimen result therefore, no HPV testing was performed. . Miscellaneous samples (specimen) ENTIRE ENDOCERVIX / Unknown 08/01/2015 3:29 PM LIVESTOCK PRODUCER 08/03/2015 9:38 PM LIVESTOCK PRODUCER Narrative [facility] INSURANCE BILL - 08/06/2015 5:12 PM LIVESTOCK PRODUCER Source.............Cervical;Endocervical LMP / Prev Treat...UWV=[id number] Other..............Oral Contraceptives No. of containers..01 CYTYC Thin Prep Vial Resulting Agency Comment [facility] [address] BOWENS [id number] Amaya Oliver METALLIC YARN SLITTING MACHINE OPERATOR-ANATOMIC PATHOLOGIST LAB - PATHOLOGY/CYTO LOGY ORDERABLES [facility] INSURANCE BILL * C-REACTIVE PROTEIN (07/13/2015 9:47 AM LIVESTOCK PRODUCER) Pathologist [facility] C-Reactive Protein 0.21 0.00 - 0.50 mg/dL 07/13/2015 12:46 PM LIVESTOCK PRODUCER [facility] Blood BLOOD SPECIMEN / Unknown Lab Venipuncture / Unknown 07/13/2015 9:47 AM LIVESTOCK PRODUCER 07/13/2015 9:58 AM LIVESTOCK PRODUCER Stan Patel MD LAB - CHEMISTRY DIDI VAZQUEZ [facility] [address] * CBC W/O DIFFERENTIAL (07/13/2015 9:47 AM LIVESTOCK PRODUCER) Pathologist [facility] WBC 5.3 4.0 - 10.0 x10^9/L 07/13/2015 10:[address] [facility] RBC 4.82 3.93 - 5.22 x10^12/L 07/13/2015 10:[address] [facility] Hemoglobin 14.1 11.2 - 15.7 gm/dL 07/13/2015 10:[address] [facility] Hematocrit 42.7 34.1 - 44.9 % 07/13/2015 10:[address] [facility] MCV 88.6 78.0 - 100.0 fl 07/13/2015 10:[address] [facility] MCH 29.3 25.6 - 34.0 pg 07/13/2015 10:[address] [facility] MCHC 33.0 32.3 - 36.5 gm/dL 07/13/2015 10:[address] [facility] RDW 13.0 11.6 - 14.4 % 07/13/2015 10:[address] [facility] MPV 9.4 9.4 - 12.4 fl 07/13/2015 10:[address] [facility] Platelet Count 241 163 - 369 x10^9/L 07/13/2015 10:[address] [facility] Blood BLOOD SPECIMEN / Unknown Lab Venipuncture / Unknown 07/13/2015 9:47 AM LIVESTOCK PRODUCER 07/13/2015 9:58 AM [facility] Stan Patel MD LAB - HEMATOLOGY ORD ERABLES Performing Organization Address City/State/[facility] Co de Phone Number [facility] [address] * ECHOCARDIOGRAM 2D WITH DOPPLER (AKA ECHO CONSULT) (07/13/2015 12:00 AM LIVESTOCK PRODUCER) 07/13/2015 Narrative [facility] - 07/13/2015 12:55 PM [place]OCK [place] [address] Transthoracic Echocardiogram 2D, M-mode, Doppler, and Color Doppler Patient: KD SANDOVAL MR #: [id number] : 1990 Age: 25 years Gender: Female Study date: 13-Jul-2015 Status: Outpatient Room: - Height: 59.8 in Weight: 112.2 lb BSA: 1.46 m Referring Physician: Stan Patel MD, [facility] Patternmaker Apprentice Wood: Stan Patel MD, [facility] Editorial Clerk: Tahir Jain BRITNEY Impressions: Structurally normal heart Summary: - Clinical question: CHEST PAIN - Left ventricle: Ejection fraction was estimated in the range of 60 % to 65 %. - Right ventricle: Estimated peak pressure was 15 mmHg. - Impressions: Structurally normal heart Comparisons: No prior study for comparison. Clinical question: CHEST PAIN History: Cardiovascular history: FAMILY HISTORY HEART PROBLEM, Procedure: The procedure was performed in the echo lab. This was a routine study. The transthoracic approach was used. The study included complete 2D imaging, M-mode, complete spectral Doppler, and color Doppler. The heart rate was 99 bpm, at the start of the study. Systolic blood pressure was 127 mmHg, at the start of the study. Diastolic blood pressure was 80 mmHg, at the start of the study. Images were obtained from the parasternal, apical, subcostal, and suprasternal notch acoustic windows. Image quality was good. Left ventricle: Size was normal. Ejection fraction was estimated in the range of 60 % to 65 %. There were no regional wall motion abnormalities. Doppler: The transmitral flow pattern was normal. Aortic valve: The valve was trileaflet. Leaflets exhibited normal cuspal separation. Aorta: The root exhibited normal size. Mitral valve: Valve structure was normal. Left atrium: Size was normal. Pulmonary veins: The pulmonary veins were normal sized. Doppler: Doppler flow pattern was normal in the pulmonary vein(s). Right ventricle: The size was normal. Systolic function was normal. Doppler: Estimated peak pressure was 15 mmHg. Pulmonic valve: Leaflets exhibited normal thickness, no calcification, and normal cuspal separation. Doppler: The transpulmonic velocity was within the normal range. There was no regurgitation. Tricuspid valve: The valve structure was normal. Right atrium: Size was normal. Systemic veins: IVC: The inferior vena cava was normal in size and course. Respirophasic changes were normal. Pericardium: There was no pericardial effusion. The pericardium was normal in appearance. System measurement tables 2D EF(Cube): 67.7 % ESV(Cube): 20.8 ml LVEF MOD A4C: 63.5 % SV(Cube): 43.6 ml SV(Teich): 42.1 ml IVSd: 0.7 cm IVSs: 1 cm LVEDV MOD A4C: 51.3 ml LVESV MOD A4C: 18.7 ml LVOT Diam: 2 cm LVPWd: 0.8 cm LVPWs: 1 cm LVs Mass: 79.6 g LVs Mass Index: 54.5 g/m2 RVIDd: 2.4 cm LAAs A2C: 9.4 cm2 LAAs A4C: 9.4 cm2 LAESV A-L A2C: 21.1 ml LAESV A-L A4C: 19.5 ml LAESV Index (A-L): 14.4 ml/m2 LAESV MOD A2C: 20.8 ml LAESV MOD A4C: 16.7 ml LAESV(A-L): 21 ml LALs A2C: 3.6 cm LALs A4C: 3.8 cm CW AV VTI: 20.3 cm AV Vmax: 1.1 m/s AV maxP.7 mmHg AV meanP.7 mmHg RAP: 5 mmHg TR Vmax: 1.7 m/s TR maxP mmHg MM AV Cusp: 2.2 cm AoR Diam; (2D): 2.6 cm LVIDd: 4 cm LVIDs: 2.5 cm PW CHANNING (VTI): 2.2 cm2 CHANNING Vmax: 2.2 cm2 LVCI Dopp: 3.1 l/minm2 LVCO Dopp: 4.5 L/min LVOT VTI: 14.2 cm LVOT Vmax: 0.8 m/s LVOT Vmean: 0.5 m/s LVOT maxP.5 mmHg LVOT meanP.3 mmHg LVSI Dopp: 29.9 ml/m2 LVSV Dopp: 43.7 ml E/E': 3.9 MV A Everett: 0.7 m/s MV Dec Coosa: 5.1 m/s2 MV DecT: 161.8 ms MV E Everett: 0.8 m/s MV E/A Ratio: 1.2 MV PHT: 59.3 ms MVA By PHT: 3.7 cm2 PV Vmax: 0.8 m/s PV maxP.5 mmHg RVSP: 16 mmHg HR: 102.6 BPM All images and data generated for this procedure were personally reviewed by me. Prepared and Electronically Authenticated Stan Patel MD, [facility] 13-Jul-2015 13:01:10 Procedure Note Unknown, Provider - 07/13/[address] [address] Transthoracic Echocardiogram 2D, M-mode, Doppler, and Color Doppler Patient: KD SANDOVAL MR #: [id number] : 1990 Age: 25 years Gender: Female Study date: 13-Jul-2015 Status: Outpatient Room: - Height: 59.8 in Weight: 112.2 lb BSA: 1.46 m Referring Physician: Stan Patel MD, [facility] Patternmaker Apprentice Wood: Stan Patel MD, [facility] Editorial Clerk: Tahir Jain BRITNEY Impressions: Structurally normal heart Summary: - Clinical question: CHEST PAIN - Left ventricle: Ejection fraction was estimated in the range of 60 % to65 %. - Right ventricle: Estimated peak pressure was 15 mmHg. - Impressions: Structurally normal heart Comparisons: No prior study for comparison. Clinical question: CHEST PAIN History: Cardiovascular history: FAMILY HISTORY HEART PROBLEM, Procedure: The procedure was performed in the echo lab. This was aroutine study. The transthoracic approach was used. The study included [id number] imaging, M-mode, complete spectral Doppler, and color Doppler. The heartrate was 99 bpm, at the start of the study. Systolic blood pressure was 127mmHg, at the start of the study. Diastolic blood pressure was 80 mmHg, at the startof the study. Images were obtained from the parasternal, apical, subcostal,and suprasternal notch acoustic windows. Image quality was good. Left ventricle: Size was normal. Ejection fraction was estimated in therange of 60 % to 65 %. There were no regional wall motion abnormalities.Doppler: The transmitral flow pattern was normal. Aortic valve: The valve was trileaflet. Leaflets exhibited normal cuspal separation. Aorta: The root exhibited normal size. Mitral valve: Valve structure was normal. Left atrium: Size was normal. Pulmonary veins: The pulmonary veins were normal sized. Doppler: Dopplerflow pattern was normal in the pulmonary vein(s). Right ventricle: The size was normal. Systolic function was normal.Doppler: Estimated peak pressure was 15 mmHg. Pulmonic valve: Leaflets exhibited normal thickness, no calcification,and normal cuspal separation. Doppler: The transpulmonic velocity was withinthe normal range. There was no regurgitation. Tricuspid valve: The valve structure was normal. Right atrium: Size was normal. Systemic veins: IVC: The inferior vena cava was normal in size andcourse. Respirophasic changes were normal. Pericardium: There was no pericardial effusion. The pericardium was normalin appearance. System measurement tables 2D EF(Cube): 67.7 % ESV(Cube): 20.8 ml LVEF MOD A4C: 63.5 % SV(Cube): 43.6 ml SV(Teich): 42.1 ml IVSd: 0.7 cm IVSs: 1 cm LVEDV MOD A4C: 51.3 ml LVESV MOD A4C: 18.7 ml LVOT Diam: 2 cm LVPWd: 0.8 cm LVPWs: 1 cm LVs Mass: 79.6 g LVs Mass Index: 54.5 g/m2 RVIDd: 2.4 cm LAAs A2C: 9.4 cm2 LAAs A4C: 9.4 cm2 LAESV A-L A2C: 21.1 ml LAESV A-L A4C: 19.5 ml LAESV Index (A-L): 14.4 ml/m2 LAESV MOD A2C: 20.8 ml LAESV MOD A4C: 16.7 ml LAESV(A-L): 21 ml LALs A2C: 3.6 cm LALs A4C: 3.8 cm CW AV VTI: 20.3 cm AV Vmax: 1.1 m/s AV maxP.7 mmHg AV meanP.7 mmHg RAP: 5 mmHg TR Vmax: 1.7 m/s TR maxP mmHg MM AV Cusp: 2.2 cm AoR Diam; (2D): 2.6 cm LVIDd: 4 cm LVIDs: 2.5 cm PW CHANNING (VTI): 2.2 cm2 CHANNING Vmax: 2.2 cm2 LVCI Dopp: 3.1 l/minm2 LVCO Dopp: 4.5 L/min LVOT VTI: 14.2 cm LVOT Vmax: 0.8 m/s LVOT Vmean: 0.5 m/s LVOT maxP.5 mmHg LVOT meanP.3 mmHg LVSI Dopp: 29.9 ml/m2 LVSV Dopp: 43.7 ml E/E': 3.9 MV A Everett: 0.7 m/s MV Dec Coosa: 5.1 m/s2 MV DecT: 161.8 ms MV E Everett: 0.8 m/s MV E/A Ratio: 1.2 MV PHT: 59.3 ms MVA By PHT: 3.7 cm2 PV Vmax: 0.8 m/s PV maxP.5 mmHg RVSP: 16 mmHg HR: 102.6 BPM All images and data generated for this procedure were personally reviewedby mt. Prepared and Electronically Authenticated tSan Patel MD, [facility] 13-Jul-2015 13:01:10 Stan Patel MD ECHO ORDERABLES [facility] * CT CHEST WITH CONTRAST (07/03/2015 5:13 PM LIVESTOCK PRODUCER) Anatomical Region Laterality Modality Chest Computed Tomogra phy 07/03/2015 5:26 PM LIVESTOCK PRODUCER Impressions 07/03/2015 5:54 PM LIVESTOCK PRODUCER 1. No acute-appearing intrapulmonary pathology. 2. No visible evidence of pulmonary emboli even though this study is not tailored for pulmonary emboli. 3. No visible evidence of dissection or aneurysm. 4. Old granulomatous disease left lung image 22 series 3. Narrative 07/03/2015 5:54 PM LIVESTOCK PRODUCER CHEST CT WITH CONTRAST 07/03/2015 HISTORY: Pain deep in the chest, burning sensation upper back. CONTRAST: 95 cc Omnipaque 300 IV. FINDINGS: No focal consolidation. No pleural or pericardial effusion is identified. No evidence of hilar or mediastinal lymphadenopathy. Axillary and supraclavicular regions are normal. Visualized upper abdominal organs appear unremarkable. Degenerative changes of spine are noted. Thoracic aortic atherosclerosis without aneurysm. Procedure Note Jose Winter MD - 07/03/[address] WITH CONTRAST 07/03/2015 HISTORY: Pain deep in the chest, burning sensation upper back. CONTRAST: 95 cc Omnipaque 300 IV. FINDINGS: No focal consolidation. No pleural or pericardial effusion is identified. No evidence of hilar or mediastinal lymphadenopathy. Axillary and supraclavicular regions are normal. Visualized upper abdominal organs appear unremarkable. Degenerative changes of spine are noted. Thoracic aortic atherosclerosis without aneurysm. IMPRESSION 1. No acute-appearing intrapulmonary pathology. 2. No visible evidence of pulmonary emboli even though this study is not tailored for pulmonary emboli. 3. No visible evidence of dissection or aneurysm. 4. Old granulomatous disease left lung image 22 series 3. Lala Riggs PA-C CT ORDERABLES * GROSS + MICRO EXAM (ILL) (02/21/2015 10:18 AM CDT) Case Report Surgical Pathology Report Case: [id number] Authorizing Provider: Marck Bonner MD Collected: 02/21/2015 10:18 AM Ordering Location: [facility] Received: 02/21/2015 12:03 PM Pathologist: Samm Fox MD Specimen: Antrum/Gastric Biopsy , Bx antrum r/o h pylori 02/22/2015 12:00 PM CDT [facility] Final Diagnosis STOMACH, ANTRUM, ENDOSCOPIC BIOPSY: - ANTRAL MUCOSA WITH SPARSE CHRONIC INFLAMMATION. NO ACUTE INFLAMMATION. - DIFF-QUIK STAIN IS NEGATIVE FOR HELICOBACTER PYLORI ORGANISMS. HC/dc 02/22/2015 12:00 PM T [facility] Clinical History Gastroesophageal reflux disease, biopsy of normal appearing gastric mucosa to rule out H.pylori. Operative Procedure: Esophagogastroduod enoscopy. 02/22/2015 12:00 PM CDT [facility] Gross Description Received in formalin, labeled Aud, Kd and bx antrum r/o H.pylori , is a burns soft fragment measuring 0.2 x 0.1 x <0.1 cm. Totally submitted as received in cassette A1. HC/dc 02/22/2015 12:00 PM T [facility] Microscopic Description Microscopic examination is performed and substantiates the above diagnosis. 02/22/2015 12:00 PM CDT [facility] Special Stains Diff quik stain reveals no H-pylori organisms. Positive control is appropriately stained. 02/22/2015 12:00 PM T [facility] Testing Performed By Performed by [facility] [place]. [address]. 02/22/2015 12:00 PM T [facility] Disclaimer H&E slides and special stains prepared at [facility], [place]. [address] (CLIA# [id number]) unless otherwise specified. 02/22/2015 12:00 PM CDT [facility] Pathology/Cytolo gy GASTRIC ANTRAL BIOPSY SPECIMEN / Unknown 02/21/2015 10:18 AM CDT 02/21/2015 12:03 PM CDT Comment:Report to Dr Bonner and Lala BRUCE Marck Bonner MD LAB - PATHOLOGY/CYTO LOGY ORDERABLES [facility] [address] * CT ABDOMEN AND PELVIS W IV CONTRAST [id number] (02/18/2015 6:06 PM CDT) Anatomical Region Laterality Modality Abdomen, Pelvis Computed Tomogra phy 02/18/2015 6:30 PM CDT Impressions 02/18/2015 6:45 PM CDT Lung bases are clear. No focal hepatic, splenic, pancreatic, renal, adrenal mass. Normal appendix. No diverticulitis or bowel obstruction. Few peripherally enhancing fluid-filled loops of small bowel are present. These are nonspecific and may represent enteritis. Symmetric renal cortical enhancement with excretion of contrast in the ureters which are symmetric and normal in size. Limited evaluation of bladder which is grossly unremarkable. trace free fluid present within the pelvis. Preliminary report printed to the ER 02/18/2015 at 1833h. Narrative 02/18/2015 6:[address] ABDOMEN AND PELVIS WITH CONTRAST 02/18/2015 INDICATION: Right side abdominal pain for one month. CONTRAST DOSE: 95 cc Omnipaque 300 IV. COMPARISON: No comparison. Procedure Note Kaden Jewell MD - 02/18/2015 CT ABDOMEN AND PELVIS WITH CONTRAST 02/18/2015 INDICATION: Right side abdominal pain for one month. CONTRAST DOSE: 95 cc Omnipaque 300 IV. COMPARISON: No comparison. IMPRESSION Lung bases are clear. No focal hepatic, splenic, pancreatic, renal, adrenal mass. Normal appendix. No diverticulitis or bowel obstruction. Few peripherally enhancing fluid-filled loops of small bowel are present. These are nonspecific and may represent enteritis. Symmetric renal cortical enhancement with excretion of contrast in the ureters which are symmetric and normal in size. Limited evaluation of bladder which is grossly unremarkable. trace free fluid present within the pelvis. Preliminary report printed to the ER 02/18/2015 at 1833h. Javad Barrientos MD CT ORDERABLES * [place] [id number] (02/12/2015 12:35 PM CDT) Anatomical Region Laterality Modality Abdomen Nuclear Medicine 02/12/2015 3:03 PM CDT Impressions 02/12/2015 3:26 PM CDT 1. Negative HIDA with CCK. 2. No evidence of cystic or common bile duct obstruction. 3. Normal GBEF of 69% (normal is 35% and above.) Narrative 02/12/2015 3:26 PM CDT HIDA WITH CCK 02/12/2015 CLINICAL HISTORY: Nausea, abdominal pain. DOSE: 5.5 mCi of technetium 99m mebrofenin and 1 mcg of CCK. FINDINGS: Study demonstrates normal extraction of radiopharmaceutical by liver. Gallbladder was visualized by 30 minutes. Activity was noted in small bowel by 35 minutes. Calculated gallbladder ejection fraction is 69% (normal is 35% and above). Procedure Note Anel Goodwin MD - 02/12/2015 HIDA WITH CCK 02/12/2015 CLINICAL HISTORY: Nausea, abdominal pain. DOSE: 5.5 mCi of technetium 99m mebrofenin and 1 mcg of CCK. FINDINGS: Study demonstrates normal extraction of radiopharmaceutical by liver. Gallbladder was visualized by 30 minutes. Activity was noted in small bowel by 35 minutes. Calculated gallbladder ejection fraction is 69% (normal is 35% and above). IMPRESSION 1. Negative HIDA with CCK. 2. No evidence of cystic or common bile duct obstruction. 3. Normal GBEF of 69% (normal is 35% and above.) Marck Bonner MD NM ORDERABLES * US ABDOMEN COMPLETE (02/07/2015 8:10 AM CDT) Anatomical Region Laterality Modality Abdomen Ultrasound 02/07/2015 8:57 AM CDT Narrative 02/07/2015 9:25 AM CDT ULTRASOUND ABDOMEN 02/07/2015: INDICATION: Indigestion. FINDINGS: Pancreas is obscured by bowel gas. Visualized liver parenchyma is homogeneous. Gallbladder has a normal ultrasound appearance. No gallstones. No thickening of the gallbladder wall. Common bile duct is of normal caliber at 3.9 mm. Right kidney measures 10.4 x 3.7 x 4.9 cm. Left kidney measures 9.8 x 4.9 x 4.5 cm. No hydronephrosis. Spine is normal in size. There is a 2 cm septated cyst within the spleen consistent with benign process. Vena cava is patent at the level of the liver. Aorta is of normal caliber. SUMMARY: 2 cm benign cyst in the spleen, exam otherwise negative. Procedure Note Luis Carlos Carlson MD - 02/07/2015 ULTRASOUND ABDOMEN 02/07/2015: INDICATION: Indigestion. FINDINGS: Pancreas is obscured by bowel gas. Visualized liver parenchyma is homogeneous. Gallbladder has a normal ultrasound appearance. No gallstones. No thickening of the gallbladder wall. Common bile duct is of normal caliber at 3.9 mm. Right kidney measures 10.4 x 3.7 x 4.9 cm. Left kidney measures 9.8 x 4.9 x 4.5 cm. No hydronephrosis. Spine is normal in size. There is a 2 cm septated cyst within the spleen consistent with benign process. Vena cava is patent at the level of the liver. Aorta is of normal caliber. SUMMARY: 2 cm benign cyst in the spleen, exam otherwise negative. Llaa Riggs PA-C US ORDERABLES * HPV DNA PROBE HIGH RISK (07/28/2014 10:47 AM LIVESTOCK PRODUCER) Pathologist [facility] Human papillomavirus High Risk Negative Negative [facility] INSURANCE BILL Comment: This high-risk HPV test detects thirteen high-risk types (16/18/31/33/35/39/45/51/52/56/58/59/68) without differentiation. . 07/28/2014 10:4 7 AM LIVESTOCK PRODUCER 07/29/2014 3:23 AM LIVESTOCK PRODUCER Narrative [facility] - 08/05/2014 4:11 PM LIVESTOCK PRODUCER Source.............Cervical;Endocervical LMP / Prev Treat...[id number] No. of containers..01 CYTYC Thin Prep Vial Resulting Agency [facility] [phone] Amaya Oliver METALLIC YARN SLITTING MACHINE OPERATOR-ANATOMIC PATHOLOGIST LAB - MICROBIOLOGY O RDERABLES [facility] INSURANCE BILL * MONONUCLEOSIS SCREEN (06/23/2014 10:07 AM LIVESTOCK PRODUCER) Pathologist [facility] Mononucleosis Screen Negative Negative 06/23/2014 4:42 PM LIVESTOCK PRODUCER [facility] Blood BLOOD SPECIMEN / Unknown Venipuncture / Unknown 06/23/2014 10:07 AM LIVESTOCK PRODUCER 06/23/2014 10:09 AM LIVESTOCK PRODUCER Lala Riggs PA-C LAB - CHEMISTRY MAEHema TAYLOR [facility] [address] * XR SPINE SCOLIOSIS 2 VW (10/19/2012) Anatomical Region Laterality Modality Spine Other Lala Riggs PA-C DIAGNOSTIC IMAGING O RDERABLES Care Teams Hand Laminator Relationship Specialty Start Date End Date Lala Riggs PA-C [address] [place] [address] [phone] PCP - General Physician Color Adviser 09/08/22 Lala Riggs PA-C [address] [place] [address] [phone] Physician Color Adviser 09/08/22 Marck Bonner MD [facility] [address] Gastroenterology 02/09/15 Haylie Yun LCPC Behavioral Health Therapist 07/30/23
--- OUTSIDE RECORDS SUMMARY | 2024-07-14 05:40 | XMS_ITS | Referral Summary ---
Author Organization [facility] Address [address] [place] [address] Care Team Providers Care Material Specialist Name Role Phone Lala Riggs PA-C Primary Care Provider [phone] Lala Riggs PA-C Unavailable [phone] Marck Bonner MD Unavailable [phone] Haylie Yun LCPC Unavailable Unavailable Source Comments [facility],non-owned Affiliates and Associated Physician Practices is amultiple site organization consisting of ambulatory clinics and hospital sitesin [place], [place], [place] and [place]. This disclosure is being madepursuant to the Care Everywhere program and may not contain all information available regarding this patient. Last updated 18.[facility] Encounters Date Type Department Care Team Description 06/29/2024 1:40 PM HOME SALES SERVICE PROFESSIONAL Video Visit [facility] [address] [place] [phone] Aron Allred MD Wennerstrom, Amber L, APRN-OKSANA ERRONEOUS ENCOUNTER--DISREGARD 06/15/2024 Travel 05/20/2024 Travel 05/20/2024 1:20 PM HOME SALES SERVICE PROFESSIONAL Office Visit [facility] [address] [place] [phone] Chelsie Monet APRN-OKSANA Anxiety with depression (Primary Dx); Personality disorder (HCC); Mental disorder affecting , antepartum (HCC); History of opioid abuse (HCC) from Last 3 Months Allergies No known active allergies Medications * Be aware that medications may not be up to date on this document. Alwaysverify current medications with the patient. Medication Sig Dispensed Refills Start Date End Date Status calcium carbonate (Tums) 500 MG chew tablet Take 1 (one) tablet by mouth daily with food 03/06/2022 Active omeprazole (PriLOSEC) 20 MG capsule Take 1 (one) capsule by mouth daily before breakfast Active Other OTC Iron 325mg takes one tablet daily Active Other OTC Amino acids takes one tablet daily Active Vit-Fe Fumarate-FA ( vitamin) 28-0.8 MG tablet Take 1 (one) tablet by mouth once daily Active aspirin (Aspirin) 81 MG chew tablet Take 1 (one) tablet by mouth once daily Active Other OTC stool softener as needed Active escitalopram (Lexapro) 20 MG tabletIndications:Pe rsonality disorder (HCC),Anxiety with depression Take 1 (one) tablet by mouth once daily 30 tablet 2 05/20/2024 Active Active Problems Patient Care Coordination No te Formatting of this note migh t be different from the original. [facility] PCP Change Request form faxed 05/12/18 Problem Noted Date Diagnosed Date Migraine without aura and wi thout status migrainosus, not intractable 01/09/2021 Anxiety and depression-doing online counseling 1 07/13/2017 Hypertriglyceridemia 01/24/2014 GERD (gastroesophageal reflux disease) 4 TOI (generalized anxiety disorder) Estimated Date of Delivery Comme nts Yes 08/12/2024 Resolved Problems Problem Noted Date Diagnosed Date Resolved Date Gestational hypertension, third trimester 09/18/2022 06/17/2023 Supervision of normal first , antepartum 09/08/2022 09/11/2022 Leakage of amniotic fluid 09/08/2022 Anxiety 07/02/2015 05/12/2018 Atypical chest pain 01/24/2014 05/14/20 16 Immunizations Name Administration Dates Next Due Covid Moderna primary monova lent 12+ yr 0.5mL 07/10/2020,06/12/2020 DTP/HIB 07/10/1993, 3,1992,08/08 DTaP VACCINE IM (6wk-6yrs) 12/06/1997,,1992,10/10,1992 HEP B VACCINE, PED/ADOL 04/16/1993,02/11/1993, HIB-PRP-T 4 DOSE 07/10/1993, 3,1992,08/08 Human Papilloma Virus Humberto valent Vaccine 07/18/2009,03/14/2009,01/10/2009 INFLUENZA VACCINE 03/15/2019, 8,04/01/2017,03/15,04/01/2015,04/01/2014 INFLUENZA VACCINE, QUADR. (F LUZONE; FLULAVAL; FLUARIX; AFLURIA QUADRIVALENT; 6MO+), 0.5 ML (IIV4) 03/21/2020 MENINGOCOCAL MENINGITIS 12/26/2009 MENINGOCOCCAL CONJUGATE (MCV4P) 12/26/2009 MMR 09/10/2022(Deferred: Patient Condition - immune),12/06/1997,07/10/1993 POLIO IPV 12/06/1997, 4,1992,10/10,1992 POLIO OPV 12/06/1997, 4,1992,10/10,1992 PPD 09/24/2011 TDAP (7yrs+) 09/11/2022(Deferred: Patient Refused),11/30/2006 VARICELLA 01/10/2009,12/06/1997 Social History Tobacco Use Types Packs/Day Years [...] Recorded Patient Health Questionnaire-2 Score 0 12/10/2023 [facility] of Occupat ional Health - Occupational Stress [...] place to sleep or slept in a snf (including now)? No 09/08/2022 [place] Depression Scale Answer Date Recorded [place] Depression Scale Total 10 09/17/2022 The thought [...] Comments Blood Pressure 103/62 05/20/2024 1:27 PM HOME SALES SERVICE PROFESSIONAL Pulse 100 05/20/2024 1:27 PM HOME SALES SERVICE PROFESSIONAL Temperature 36.9 C (98.5 F) 12/10/2023 1:20 PM CDT Respiratory Rate 18 09/11/2022 9:55 AM CDT Oxygen Saturation 100% 12/10/2023 1:20 PM CDT Inhaled Oxygen Concentration - - Weight 76.4 kg (168 lb 6.4 oz) 05/20/2024 1:27 P M HOME SALES SERVICE PROFESSIONAL Height 154.2 cm (5' 0.71 ) 05/20/2024 1:27 PM CS T Body Mass Index 32.12 05/20/2024 1:27 PM HOME SALES SERVICE PROFESSIONAL Functional Status Functional Status Response Date of [...] person have difficulty concentrating/remembering/making decisions? No 09/08/2022 Plan of Treatment Upcoming Encounters Date Type Department Care Team (Late st Contact Info) Description 08/08/2024 10:40 AM CDT Video Visit [facility] [address] [place] [phone] Aron Allred MD [address] [place] [phone] Chelsie Monet, SHELLFISH WEIGHER-AERONAUTICAL ENGINEERING TECHNOLOGIST [address] [place] [address] Procedures Procedure Name Priority Date/Time Associated Diagnosis Comments PAP IG LB +HPV APTIMA REFLEX 16,1845 Routine 07/07/2023 12:15 PM HOME SALES SERVICE PROFESSIONAL Well woman exam with routine gynecological exam Encounter for surveillance of contraceptive pills CULTURE STREP B STAT 09/08/2022 11:38 AM CDT Supervision of normal first , antepartum (HCC) from Last 3 Months or Most Recently Relevant to Health Maintenance Results * PAP IG LB +HPV APTIMA REFLEX 16,18/45 (07/07/2023 12:15 PM HOME SALES SERVICE PROFESSIONAL) Diagnosis [facility] INSURANCE BILL Comment:NEGATIVE FOR INTRAEP ITHELIAL LESION OR MALIGNANCY. Specimen Adequacy [facility] INSURANCE BILL Comment: Satisfactory for evaluation. Endocervical and/or squamous metaplastic cells (endocervical component) are present. Clinician Provided ICD10 [facility] INSURANCE BILL Comment: Z01.419 Z30.41 Performed by [facility] INSURANCE BILL Comment:Sue Pate Cyto technologist (ASCP) Comment . [facility] INSURANCE BILL Note [facility] INSURANCE BILL Comment: The Pap smear is a screening test designed to aid in the detection of premalignant and malignant conditions of the uterine cervix. It is not a diagnostic procedure and should not be used as the sole means of detecting cervical cancer. Both false-positive and false-negative reports do occur. . IGLBP CPT Code Automation [facility] INSURANCE BILL Comment: This liquid based ThinPrep(R) pap test was screened with the use of an image guided system. Human papillomavirus Aptima Negative Negative [facility] INSURANCE BILL Comment: This nucleic acid amplification test detects fourteen high-risk HPV types (16,18,31,33,35,39,45,51,52,56,58,59,66,68) without differentiation. HPV Genotype Reflexed [facility] INSURANCE BILL Comment:Criteria not met, HP V Genotype not performed. PART OF UTERINE CERVIX / Unknown 07/07/2023 12:15 PM HOME SALES SERVICE PROFESSIONAL 07/07/2023 Narrative [facility] INSURANCE BILL - 07/10/2023 1:10 PM HOME SALES SERVICE PROFESSIONAL LMP / Prev Treat...[id number];None Other..............Oral Contraceptives No. of containers..01 ThinPrep Vial Resulting Agency Comment Lab Testing performed at: [employer] [phone] Amaya Oliver SHELLFISH WEIGHER-AERONAUTICAL ENGINEERING TECHNOLOGIST LAB - PATHOLOGY/CYTO LOGY ORDERABLES [facility] INSURANCE BILL [address] [place] [address] * CULTURE STREP B (09/08/2022 11:38 AM CDT) Culture Strep B Negative for beta-hemolytic Streptococcus Group [facility] 09/12/2022 8:49 AM CDT [facility] MICROBIOLOGY Microbiology MISCELLANEOUS SAMPLES / Unknown Collection / Unknown 09/08/2022 11:38 AM CDT 09/08/2022 11:46 AM CDT Perla Mendez MD LAB - MICROBIOLOGY O RDERABLES [facility] MICROBIOLOGY [address] [place], [place] [address], [facility] [phone] from Last 3 Months or Most Recently Relevant to Health Maintenance Administered Medications Advance Directives * Full Code (Latest Code Status on File) Date Activated Date Inactivated Comments 09/08/2022 3:54 PM 09/11/2022 4:12 PM Care Teams Material Specialist Relationship Specialty Start Date End Date Lala Riggs PA-C [address] [place] [address] [phone] PCP - General Physician Slurry Mixer 09/08/22 Lala Riggs PA-C [address] [place] [address] [phone] Physician Slurry Mixer 09/08/22 Marck Bonner MD [facility] [address] Gastroenterology 02/09/15 Haylie Yun LCPC Behavioral Health Therapist 07/30/23
--- OUTSIDE RECORDS SUMMARY | 2024-07-14 05:40 | XMS_ITS | Data Portability ---
Author Organization [facility] [place] Address [address] [place] [place] [address] [place] [address] Assessment No assessment recorded. Plan of Treatment Reminders Order Date Submit Date Provider Last Modified By Organization Details Last Modified Time Details Appointments U/S OB GROWTH 2024 11:00A M ULTRASOUND Not available Not available Not available OB ROUTINE 2024 11:30A M JW GALAN MD Not available Not available Not available Lab None recorde d. Referral None recorde d. Procedures None recorde d. Surgeries None recorde d. Imaging US, obstetr ic, follow- up 2024 025 [email or web address] [place], [facility] [address], [place], [address], 06/22/2024 21:50:37 Medication Orders None recorde d. Patient TargetsNo targets recorded. Patient InstructionsNo instructions recorded. Reason for Referral None Reported. Results Created Date Observation Date Name Description Value Unit Range Abnormal Flag Note LastModifiedBy Organization Detail LastModifiedTime 05/27/20 24 05/27/2024 HEMOG LOBIN (HGB) HGB 11.8 g/dL (based on docume nted legal sex) 11.6-1 5.4 Not Available [facility] (Lab) [address], [place], [address], 05/28/2024 13:49:05 05/27/20 24 05/27/2024 HEMAT OCRIT (HCT) HCT 37.0 % (based on docume nted legal sex) 34.0-4 5.0 Not Available [facility] (Lab) [address] [place], [address], 05/28/2024 13:49:06 05/27/20 24 05/27/2024 GTT - GESTA MUNA L SCREE N, ACOG OB glucose, 1 hour screen 112 mg/dL 70-135 Not Available [facility] (Lab) [address] [facility], [place], [address], 05/28/2024 13:49:06 05/27/20 24 05/27/2024 HIV 1/2 ANTIG EN/AN TIBOD Y, REFLE X CONFI RMATI ON HIV antigen/anti body Nonrea ctive nonrea ctive HIV-1 antig en and HIV-1 /HIV- 2 antib odies were not detec jerzy. No labor atory evide nce of HIV infec tion. Not Available [facility] (Lab) [address] [facility], [place], [address], 05/28/2024 13:49:06 05/27/20 24 05/27/2024 RPR SCREE N, REFLE X TITER /CONF IRMAT ION RPR screen Nonrea ctive nonrea ctive Not Available [facility] (Lab) [address] [facility], [place], [address], 05/28/2024 13:49:07 06/22/19 25 06/22/2024 US, obste tric follo w-up No observ ation record ed. [facility] [address], [place], [address], 06/22/2024 18:45:55 06/22/19 25 06/22/2024 US, obste tric, follo w-up No observ ation record ed. [email or web address], [place], [address], 06/22/2024 21:47:09 Result Notes None recorded. Problems Name Problem SNOMED Code Status Onset Date Resolution Date Notes Provider Name and Address Organization Details Recorded Time 00208578 Active 2023 Jo Chiu null, [facility] 4 16:32:18 Past history of gestation al hypertens ion 581201919 Active delivery at 31 weeks; preE vs Vannesa GALAN MD [address], [place], [address], [facility] 4 19:26:44 premature rupture of membranes 688658525 Active hx of in G1, delivery at 31 weeks JW GALAN MD [address], [place], [address], [facility] 4 19:27:02 premature rupture of membranes 077051751 Active hx of in G1, delivery at 31 weeks JW GALAN MD [address], [place], [address], [facility] 4 19:27:06 Past history of gestation al hypertens ion 655108596 Active delivery at 31 weeks; preE vs Vannesa GALAN MD [address], [place], [address], [facility] 4 19:27:08 Problem Notes None recorded. Procedures Surgical History Date Name Laterality Status Provider Name and Address Organization Details Recorded Time 07/07/2023 Date of Last Pap Smear completed Lucero Ayala [facility] 01/04/2024 14:58:25 Imaging Results Imaging Date Name Status [facility]Modified by [facility] Details LastModified Time 06/22/2024 US, obstetric, follow-up completed jose m Francois [address], [place], [address], 06/22/2024 18:45:55 06/22/2024 US, obstetric, follow-up completed [email or web address], [place], [address], 06/22/2024 21:47:09 Procedure Notes None recorded. Medical Equipment None Reported. Allergies No known drug allergies Medications Name Sig Start Date Stop Date Status Note LastModified by Organization Details LastModified Time sertraline 100 mg tablet TAKE ONE TABLET BY MOUTH DAILY 01/03 completed Not Available Not Available Not Available amoxicillin 875 mg tablet TAKE ONE TABLET BY MOUTH TWICE DAILY FOR 10 DAYS 01/03 completed Not Available Not Available Not Available benzonatate 100 mg capsule take 1-2 CAPSULES BY MOUTH THREE TIMES DAILY NEEDED 01/03 completed Not Available Not Available Not Available fluticasone propionate 50 mcg/actuati on nasal spray,suspe nsion SPRAY TWO SPRAYS in each nostril ONCE DAILY FOR SEVEN DAYS, THEN MAY adjust TO 1-2 SPRAYS in each nostril ONCE DAILY 01/03 completed Not Available Not Available Not Available amoxicillin 875 mg-potassiu m clavulanate 125 mg tablet TAKE 1 TABLET BY MOUTH TWICE DAILY WITH MORNING MEAL AND WITH EVENING MEAL FOR 10 DAYS 01/03 completed Not Available Not Available Not Available escitalopra m 10 mg tablet TAKE ONE TABLET BY MOUTH ONCE DAILY 01/03 completed Not Available Not Available Not Available escitalopra m 20 mg tablet TAKE 1 TABLET BY MOUTH ONCE DAILY active Not Available Not Available No t Available atomoxetine 25 mg capsule TAKE 1 CAPSULE BY MOUTH ONCE DAILY IN THE MORNING 01/03 completed Not Available Not Available Not Available aripiprazol e 5 mg tablet TAKE ONE TABLET BY MOUTH ONCE DAILY 01/03 completed Not Available Not Available Not Available omeprazole active Not Available Not Av ailable Not Available iron active Not Available Not Availa ble Not Available Amino Acid active Not Available Not Av ailable Not Available active Not Available Not Avai lable Not Available lisdexamfet amine 30 mg capsule TAKE 1 CAPSULE BY MOUTH ONCE DAILY IN THE MORNING 01/03 completed Not Available Not Available Not Available Vyvanse 40 mg capsule TAKE 1 CAPSULE BY MOUTH IN THE MORNING 01/03 completed Not Available Not Available Not Available quetiapine ER 50 mg tablet,exte nded release 24 hr TAKE ONE TABLET BY MOUTH AT BEDTIME 01/03 completed Not Available Not Available Not Available Estarylla 0.25 mg-35 mcg tablet TAKE 1 TABLET BY MOUTH ONCE DAILY 01/03 completed Not Available Not Available Not Available Vitals Date Recorded Body height Body mass index (BMI) Body weight Systolic blood pressure Diastolic blood pressure Provider Name and Address Organization Details Last Updated DateTime 05/27/2024 152.4 cm 32.8 kg/m2 22808.51 816 g 125 mm[Hg] 72 mm[Hg] [facility] 4 10:07:51 Date Recorded Body height Body mass index (BMI) Body weight Systolic blood pressure Diastolic blood pressure Provider Name and Address Organization Details Last Updated DateTime 06/08/2024 152.4 cm 34.1 kg/m2 75217.22 7802 g 115 mm[Hg] 78 mm[Hg] [facility] 5 14:59:12 Date Recorded Body height Body mass index (BMI) Body weight Systolic blood pressure Diastolic blood pressure Provider Name and Address Organization Details Last Updated DateTime 06/22/2024 152.4 cm 34.6 kg/m2 16457.85 g 106 mm[Hg] 68 mm[Hg] [facility] 5 16:03:09 Date Recorded Body height Body mass index (BMI) Body weight Systolic blood pressure Diastolic blood pressure Provider Name and Address Organization Details Last Updated DateTime 07/06/2024 152.4 cm 35.2 kg/m2 16864.63 g 125 mm[Hg] 86 mm[Hg] [facility] 5 12:51:50 Social History Question Answer Notes LastModified by Organizat ion Details LastModified Time What Is Your Level Of Alcohol Consumption? None Information not available 01/04/2024 Are You Blind Or Do You Have Difficulty Seeing? Yes Information not available 01/04/2024 What Is Your Level Of Caffeine Consumption? Occasional Information not available 01/04/2024 How Much Tobacco Do You Chew? None Information not available 01/04/2024 In The 14 Days Before Symptom Onset, Have You Had Close Contact With A Laboratory-confir med COVID-19 While That Case Was Ill? No Information not available 01/04/2024 In The 14 Days Before Symptom Onset, Have You Had Close Contact With A Person Who Is Under Investigation For COVID-19 While That Person Was Ill? No Information not available 01/04/2024 Have You Been To An Area Known To Be High Risk For COVID-19? No Information not available 01/04/2024 Are You Deaf Or Do You Have Serious Difficulty Hearing? No Information not available 01/04/2024 What Type Of Diet Are You Following? REGULAR Information not available 01/04/2024 What Is The Highest Grade Or Level Of School You Have Completed Or The Highest Degree You Have Received? 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 No Information not available 01/04/2024 Do You Use Protection During Sex? No Information not available 01/04/2024 Do You Use Your Seat Belt Or Car Seat Routinely? Yes Information not available 01/04/2024 Do You Have Smoke And Carbon Monoxide Detectors In Your Home? Yes Information not available 01/04/2024 How Much Tobacco Do You Smoke? No Information not available 01/04/2024 Do You Feel Stressed (tense, Restless, Nervous, Or Anxious, Or Unable To Sleep At Night)? [id number] Information not available 01/04/2024 Do You Use Any Illicit Or Recreational Drugs? No Information not available 01/04/2024 Do You Use Sunscreen Routinely? No Information not available 01/04/2024 Have You Used IV Drugs? No Information not available 01/04/2024 Sex: Unknown Functional Status Question Answer Note LastModified by Organization D etails LastModified Time Are you able to walk? YESWOREST Information not available 01/04/2024 What is your exercise level? Moderate Information not available 01/04/2024 Mental Status None recorded. Family History Relationship Description Onset Age of this Age Resolved Age Notes LastModified by Organization Details LastModified Time Mother Depressive disorder dswayne Not available 2023 14:44:40 Mother Mental disorder dswayne Not available 2023 14:44:40 Maternal Grandmother Anemia dswayne Not available 2023 14:44:40 Maternal Grandmother Heart disease dswayne Not available 2023 14:44:40 Sister Depressive disorder dswayne Not available 2023 14:44:40 Sister Mental disorder dswayne Not available 2023 14:44:40 Medical History Condition Response Acid Reflux (GERD) Y Headaches Y Depression/ depression Y Gynecological History Statement/Question Response Date of LMP 11/06/2023 On BCP's at Conception? N N Was last menstrual period normal N STIs/STDs N HPV Vaccine N Duration of Flow (days) 4 Current Control Method Age at First Child 32 Frequency of Cycle (Q days) 30 Sexually Active? Y Condoms Age of first menstrual cycle 14 Date of Last Pap Smear 07/07/2023 Sexual Problems? N Desired Control Method Condoms LMP Definite N Obstetrics History GPAL:G 2 P 0 0 0 1 Type Value Living 1 Total 2 Past Encounters Encounter ID Performer Location Encounter Start Date Encounter Closed Date Diagnosis/Indication Diagnosis SNOMED-CT Code Diagnosis ICD10 Code Diagnosis Note [id number] Aline Beltran [place] [address],[facility] [address] 01/04/2024 13:59:16 01/04/2024 14:27:46 [id number] JW GALAN MD [place] [address] [address] 01/04/2024 13:59:47 01/04/2024 17:42:02 test positive 647144551 Z32.01 1. Exam today within normal limits.2. Ultrasound today confirms GA and viability. EDC . GC/Clalbdi a testing done: will f/u as indicated. 4. ACOG guidelines and plan of care for reviewed with patient. All questions answered.5 . Return to office at 12 weeks for new OB visit6. Will need new OB labs at next visit.7. Genetic screening: desires. Past pregn bren history of gestational hypertension 058087398 Z87.59 - hx of gHTN vs preeclamps ia- discussed ldASA starting at 12 weeks Past pregn bren history of premature rupture of membranes 8002967492 48076 Z87.59 - at 31 weeks [id number] Aline Beltran [place] [address],[place] [address] 02/09/2024 09:39:19 02/09/2024 13:35:29 screening 749317416 Z36.87 Z3A.13 [id number] JW GALAN MD [place] [address],[place] [address] 02/09/2024 09:46:26 02/10/2024 02:21:09 screening 535654043 Z36.89 Routine an tenatal care 115204334 Z34.90 Past pregn bren history of gestational hypertension 171511211 Z87.59 - hx of gHTN vs preeclamps ia- discussed ldASA starting at 12 weeks pr emature rupture of membranes 339944168 O42.919 Gestation period, 13 weeks 68638986 Z3A.13 [id number] [facility] [address],[place] [address] 03/08/2024 10:54:30 03/08/2024 11:51:07 [id number] [facility] [address],[place] [address] 04/05/2024 09:51:19 04/05/2024 10:58:04 Gestation period, 21 weeks 58534517 Z3A.21 [id number] JW GALAN MD [place] [address],[place] [address] 04/05/2024 09:51:39 04/08/2024 12:13:26 Routine care 266125622 Z34.90 [id number] JW GALAN MD [place] [address],[place] [address] 05/04/2024 09:57:31 05/04/2024 10:56:42 Past history of gestational hypertension 558561166 Z87.59 - hx of gHTN vs preeclamps ia- discussed ldASA starting at 12 weeks pr emature rupture of membranes 992639425 O42.919 - at 31 weeks Gestation period, 25 weeks 77042488 Z3A.25 [id number] JW GALAN MD [place] [address],[place] [address] 05/27/2024 09:46:14 05/27/2024 10:35:50 Past history of gestational hypertension 437104280 Z87.59 - hx of gHTN vs preeclamps ia- discussed ldASA starting at 12 weeks pr emature rupture of membranes 181337678 O42.919 - at 31 weeks previously Gestation period, 29 weeks 36628131 Z3A.29 [id number] JW GALAN MD [place] [address],[place] [address] 06/08/2024 14:47:26 06/15/2024 03:05:04 Past history of gestational hypertension 234948825 Z87.59 - hx of gHTN vs preeclamps ia- discussed ldASA starting at 12 weeks Past pregn bren history of premature rupture of membranes 6282778393 41999 Z87.59 - at 31 weeks Gestation period, 31 weeks 18444820 Z3A.31 [id number] [facility] [address],[place] [address] 06/22/2024 15:19:14 06/22/2024 16:03:39 Medical examination for suspected condition 897815308 Z03.74 Z3A.32 [id number] JW GALAN MD [place] [address],[place] [address] 06/22/2024 15:19:34 06/23/2024 04:57:16 Breech presentation 5360780 O32.1XX9 - aislinn breech at 32 weeks- repeat growth/pre sentation at 36 weeks Gestation period, 32 weeks 8195486 Z3A.32 [id number] JW GALAN MD [place] [address],[place] [address] 07/06/2024 12:38:13 07/06/2024 14:13:55 Past history of gestational hypertension 184852474 Z87.59 - hx of gHTN vs preeclamps ia- discussed ldASA starting at 12 weeks Gestation period, 34 weeks 70757470 Z3A.34 Health Concerns Section Related Observation LastModified by Organization Detai ls LastModified Time None Recorded Concern Status LastModified by Organization Details LastModified Time None Recorded Advance Directives Directive None Recorded Payers Encounter Date Sequence Insurance Name Policy Number Policy Garcia Covered Member ID Garcia Member ID Guarantor Name 05/27/2024 1 [place] [id number] Charles Birchford [id number] Jessica Ball 06/08/2024 1 [place] [id number] Charles Ball [id number] Jessica Ball 06/22/2024 1 [place] [id number] Charles Ball [id number] Jessica Ball 06/22/2024 1 [place] [id number] Charles Ball [id number] Jessica Ball 07/06/2024 1 [place] [id number] Charles Ball [id number] Jessica Birchford OBGyn Episode Ob Episode Information Episode Created Date Number of Fetuses Patient Bloodtype Patient rh Status Prepregnancy Weight lbs Domestic Partner Domestic Partner Phone Father Name Tripe Cooker Status 01/04/20 24 1 CLOSED Fetus Data First Name Last Name Admitted to NICU Weight (g) Sex Living Outcome Pediatric Complications Fetus ID Race Codes Race Delivery Type 1672.39 [id number] M Prematur e [id number] Vaginal Delivery Kvng Calculation Initial Kvng Date Initial Exam Date Initial Exam Provider Initial Ultrasound Date Last Menstrual Period Date Ultra Sound Weeks Gestation 0 Eighteen To Twenty Week Kvng Update Ultra Sound Date Fundal Height At Umbil Quickening Date Ultra Sound Latest Weeks Gestation Final Kvng Confirmed By Final Kvng Confirmed Date Final Kvng Date Ultra Sound Latest Days Gestation 0 0 Menstrual History Last Menstrual Date Menses Monthly On Bcp Conception Prior Menses Frequency Hcg Plus Date Menarche Onset Age Delivery Information Delivery Date Delivery Type Labor Anesthesia Weeks Gestation Incision Type Labor Labor Length Hrs Delivered By Post Complications Tubal Sterilization Discharge Date Comments 3 Discharge Information Feeding Method Contraceptive Method Maternal HG B and HCT Levels Ob Episode Information Episode Created Date Number of Fetuses Patient Bloodtype Patient rh Status Prepregnancy Weight lbs Domestic Partner Domestic Partner Phone Father Name Tripe Cooker Status 02/09/20 24 1 O Positive 154 OPEN Fetus Data First Name Last Name Admitted to NICU Weight (g) Sex Living Outcome Pediatric Complications Fetus ID Race Codes Race Delivery Type [id number] Problems Problem Notes NIPT NL XX Problem Name Start Date End Date Resolution Snomed Code Not e Past history of gestational hypertension 951260598 delivery at 31 weeks; preE vs gHTN premature rupture of membranes 621797520 hx of i n G1, delivery at 31 weeks Kvng Calculation Initial Kvng Date Initial Exam Date Initial Exam Provider Initial Ultrasound Date Last Menstrual Period Date Ultra Sound Weeks Gestation 08/12/2024 01/04/2024 Dr Jw Galan 01/04/2024 11/06/2023 8 Eighteen To Twenty Week Kvng Update Ultra Sound Date Fundal Height At Umbil Quickening Date Ultra Sound Latest Weeks Gestation Final Kvng Confirmed By Final Kvng Confirmed Date Final Kvng Date Ultra Sound Latest Days Gestation 0 0 Pre- Flowsheet Flowsheet Date 02/09/2024 Lynch Score Blood Edema Fundus Height Fundus Units Glucose Ketones Leukocytes Nitrite Labor Signs Protein Cervic Dilation Cervic Effacement Cervic Station none none trace Type Weight in lbs Pre/Post Dialysis Refused Weight 155.398769494279 BP Diastolic BP Location Tested BP Systolic BP Type 76 106 Fetus Heart Rate Present Fetus Movement A No Comments Presents to establish prenat al care. Overall feeling well, minimal nausea, no cramping or bleeding. Discussed hydration and diet goals in . complicated by hx of gHTN vs preeclampsia and PPROM at 31 weeks. Hx of vaginal delivery with that . Discussed recommendation for ldASA ppx for preeclampsia. Hx of anxiety/depression, on lexapro. Ok to continue in . NT/NB wnl today, desires NIPT. Will draw with new OB labs. RTC 4 weeks. Flowsheet Date 03/08/2024 Lynch Score Blood Edema Fundus Height Fundus Units Glucose Ketones Leukocytes Nitrite Labor Signs Protein Cervic Dilation Cervic Effacement Cervic Station Type Weight in lbs Pre/Post Dialysis Refused Weight 156.218513848518 BP Diastolic BP Location Tested BP Systolic BP Type 70 105 Fetus Heart Rate Present Fetus Movement Comments Pts 16 week OB appt had to b e cancelled due to add on surgery with Dr. Ying's schedule. Pt took the day off for this appt. Pt has no complaints or concerns at this time. BP normal. Ultrasound completed to get FHR. To follow up at 20 week ultrasound/OB appt. To call with any changes/concerns in sxs. Pt verbalized undertsanding. MARCELO patino Flowsheet Date 04/05/2024 Lynch Score Blood Edema Fundus Height Fundus Units Glucose Ketones Leukocytes Nitrite Labor Signs Protein Cervic Dilation Cervic Effacement Cervic Station Type Weight in lbs Pre/Post Dialysis Refused BP Diastolic BP Location Tested BP Systolic BP Type Fetus Heart Rate Present Fetus Movement Comments Flowsheet Date 04/05/2024 Lynch Score Blood Edema Fundus Height Fundus Units Glucose Ketones Leukocytes Nitrite Labor Signs Protein Cervic Dilation Cervic Effacement Cervic Station neg none none trace Type Weight in lbs Pre/Post Dialysis Refused 160.303414781182 BP Diastolic BP Location Tested BP Systolic BP Type 67 L arm 100 sitting Fetus Heart Rate Present A Present Fetus Movement A Yes Comments Patient c/o of lower abdomen pressure, no bleeding. Good movement. Anatomy complete and normal, EFW 32%. BP well controlled, asymptomatic. RTC 4 weeks for routine care. Flowsheet Date 05/04/2024 Lynch Score Blood Edema Fundus Height Fundus Units Glucose Ketones Leukocytes Nitrite Labor Signs Protein Cervic Dilation Cervic Effacement Cervic Station none Type Weight in lbs Pre/Post Dialysis Refused Weight 164.545049906873 BP Diastolic BP Location Tested BP Systolic BP Type 69 L arm 107 sitting Fetus Heart Rate Present A 150 Fetus Movement A Yes Comments Patient c/o of back pain wit h standing. Good movement. No cramping or bleeding. Discussed GCT and labs for next visit. Otherwise doing well. RTC 3 weeks. Flowsheet Date 05/27/2024 Lynch Score Blood Edema Fundus Height Fundus Units Glucose Ketones Leukocytes Nitrite Labor Signs Protein Cervic Dilation Cervic Effacement Cervic Station neg none Type Weight in lbs Pre/Post Dialysis Refused 168.989741203587 BP Diastolic BP Location Tested BP Systolic BP Type 72 L arm 125 sitting Fetus Heart Rate Present A 145 Fetus Movement A Yes Comments Patient c/o of a sharp lower pain on left side. Good movement. No cramping or bleeding. Work restrictions letter given today. GCT and labs today. Discussed tdap. RTC 2 weeks. Flowsheet Date 06/08/2024 Lynch Score Blood Edema Fundus Height Fundus Units Glucose Ketones Leukocytes Nitrite Labor Signs Protein Cervic Dilation Cervic Effacement Cervic Station neg none Type Weight in lbs Pre/Post Dialysis Refused 174.314774166673 BP Diastolic BP Location Tested BP Systolic BP Type 78 L arm 115 sitting Fetus Heart Rate Present A 145 Fetus Movement A Yes Comments Doing well, good movem ent. Some BH contractions. No LOF or VB. Passed GCT and labs. Growth US at next visit. RTC 2 weeks. Flowsheet Date 06/22/2024 Lynch Score Blood Edema Fundus Height Fundus Units Glucose Ketones Leukocytes Nitrite Labor Signs Protein Cervic Dilation Cervic Effacement Cervic Station Type Weight in lbs Pre/Post Dialysis Refused BP Diastolic BP Location Tested BP Systolic BP Type Fetus Heart Rate Present Fetus Movement Comments Flowsheet Date 06/22/2024 Lynch Score Blood Edema Fundus Height Fundus Units Glucose Ketones Leukocytes Nitrite Labor Signs Protein Cervic Dilation Cervic Effacement Cervic Station neg none Type Weight in lbs Pre/Post Dialysis Refused Weight 177.358899962977 BP Diastolic BP Location Tested BP Systolic BP Type 68 L arm 106 sitting Fetus Heart Rate Present A Present Fetus Movement A Yes Comments Patient c/o of Gurwinder Gamino . Good movement. No LOF or VB. EFW 46%, aislinn breech. Discussed spinning babies and moxibustion. Also discussed ECV vs PCS and r/b of each. Will repeat US at 36 weeks and discuss if persistent breech presentation. RTC 2 weeks. Flowsheet Date 07/06/2024 Lynch Score Blood Edema Fundus Height Fundus Units Glucose Ketones Leukocytes Nitrite Labor Signs Protein Cervic Dilation Cervic Effacement Cervic Station neg trace Type Weight in lbs Pre/Post Dialysis Refused Weight 180.082829726774 BP Diastolic BP Location Tested BP Systolic BP Type 86 L arm 125 sitting Fetus Heart Rate Present A 145 Fetus Movement A Yes Comments Patient c/o slight nausea, B raxton Gamino. States has been itching all over. Good movement. Repeat growth US in 2 weeks with presentation due to breech presentation at 32 week US. Discussed GBS swab for next visit. RTC 2 weeks. Menstrual History Last Menstrual Date Menses Monthly On Bcp Conception Prior Menses Frequency Hcg Plus Date Menarche Onset Age 0611/06/2023 false Delivery Information Delivery Date Delivery Type Labor Anesthesia Weeks Gestation Incision Type Labor Labor Length Hrs Delivered By Post Complications Tubal Sterilization Discharge Date Comments Discharge Information Feeding Method Contraceptive Method Maternal HG B and HCT Levels
--- OUTSIDE RECORDS SUMMARY | 2024-07-14 05:40 | XMS_ITS | Clinical Summary ---
Author Organization [facility] Address [address] [place] [address] Care Team Providers Care Fish Cleaner Name Role Phone Lala Riggs PA-C Primary Care Provider [phone] Lala Riggs PA-C Unavailable [phone] Marck Bonner MD Unavailable [phone] Haylie Yun [facility]PC Unavailable Unavailable Source Comments [facility],non-owned Affiliates and Associated Physician Practices is amultiple site organization consisting of ambulatory clinics and hospital sitesin [place], [place], [place] and [place]. This disclosure is being madepursuant to the Care Everywhere program and may not contain all information available regarding this patient. Last updated 18.[facility] Allergies No known active allergies Medications * [...] migh t be different from the original. Jenniffer PCP Change Request form faxed 05/12/18 Problem [...] 05/12/2018 Atypical chest pain 01/24/2014 05/14/20 16 Encounters Date Type Department Care Team Description 06/29/2024 1:40 PM COUNTRY MANAGER Video Visit [facility] [address] [place] [address] Aron Allred MD Wennerstrom, Amber L, APRN-DETECTIVE AND INTELLIGENCE ANALYST ERRONEOUS ENCOUNTER--DISREGARD 06/15/2024 Travel 05/20/2024 1:20 PM COUNTRY MANAGER Office Visit [facility] [address] [place] [address] Chelsie Monet, AUTOMATION MECHANIC-DETECTIVE AND INTELLIGENCE ANALYST Anxiety with depression (Primary Dx); Personality disorder (HCC); Mental disorder affecting , antepartum (HCC); History of opioid abuse (HCC) 05/20/2024 Travel from Last 3 Months Immunizations Name Administration Dates Next Due Covid [...] TDAP (7yrs+) 09/11/2022(Deferred: Patient Refused),11/30/2006 VARICELLA 01/10/2009,12/06/1997 Family History Medical History Relation Name Comments Anemia Maternal Grandmother Cancer - Other Maternal Grandmother skin Depression Maternal Grandmother Depression Mother Relation Name Status Comments Maternal Grandmother Mother Social History Tobacco Use Types Packs/Day Years [...] Recorded Patient Health Questionnaire-2 Score 0 12/10/2023 [facility] - Occupational Stress Questionnaire Answer Date Recorded [...] place to sleep or slept in a custodial (including now)? No 09/08/2022 [place] Depression Scale Answer Date Recorded [place] Depression Scale Total 10 09/17/2022 The thought [...] Comments Blood Pressure 103/62 05/20/2024 1:27 PM COUNTRY MANAGER Pulse 100 05/20/2024 1:27 PM COUNTRY MANAGER Temperature 36.9 C (98.5 F) 12/10/2023 1:20 PM CDT Respiratory Rate 18 09/11/2022 9:55 AM CDT Oxygen Saturation 100% 12/10/2023 1:20 PM CDT Inhaled Oxygen Concentration - - Weight 76.4 kg (168 lb 6.4 oz) 05/20/2024 1:27 P M COUNTRY MANAGER Height 154.2 cm (5' 0.71 ) 05/20/2024 1:27 PM CS T Body Mass Index 32.12 05/20/2024 1:27 PM COUNTRY MANAGER Plan of Treatment Upcoming Encounters Date Type Department Care Team (Late st Contact Info) Description 08/08/2024 10:40 AM CDT Video Visit [facility] [address] [place] [phone] Aron Allred MD [address] [place] [phone] Chelsie Monet, AUTOMATION MECHANIC-DETECTIVE AND INTELLIGENCE ANALYST [address] [place], [place] [address] Health Maintenance Due Date Last Done Comments HIV SCREENING 2007 HEPATITIS C SCREENING 03/26/2010 DTAP/TDAP/TD VACCINES (7 - Td or Tdap) 11/30/2016 11/30/2006, 12/06/1997, 07/10/1993, Additional history exists COVID-19 VACCINE ( season) 2024 07/10/2020, 06/12/2020 INFLUENZA VACCINE (#1) 2024 , 03/15/2019, 04/01/2018, Additional history exists OB-ONE HOUR GLUCOSE 05/06/2024 OB-TDAP CURRENT 05/13/2024 11/30/2006 DEPRESSION SCREENING 06/01/2024 09/17/2023, 08/27/2023, 08/25/2023, Additional history exists OB-GROUP B STREP SCREEN 07/08/2024 09/08/2022 PAP with HPV 07/07/2028 07/07/2023, 11/2019, 08/18/2016, Additional history exists ZOSTER VACCINE (1 of 2) 2042 HEPATITIS B VACCINE Completed 04/16/1993, 02/11/1993, 1992 HIB VACCINE Completed 07/10/1993, 01/1994, 1992, Additional history exists HPV VACCINE Completed 07/18/2009, 03/01, 01/10/2009 MENINGOCOCCAL VACCINE Completed 12/26/2009, 010 MENINGOCOCCAL (Group B) VACCINE Aged Out No longer eligible based on patient's age to complete this topic PNEUMOCOCCAL VACCINE Aged Out No long er eligible based on patient's age to complete this topic Respiratory Syncytial Virus (RSV) Vaccine Pt: or over 60 yrs (No Doses Required) Completed Procedures Procedure Name Priority Date/Time Associated Diagnosis Comments PAP IG LB +HPV APTIMA REFLEX 16,18/45 Routine 07/07/2023 12:15 PM COUNTRY MANAGER Well woman exam with routine gynecological exam Encounter for surveillance of contraceptive pills CULTURE STREP B STAT 09/08/2022 11:38 AM CDT Supervision of normal first , antepartum (HCC) from Last 3 Months or Most Recently Relevant to Health Maintenance Results * PAP IG LB +HPV APTIMA REFLEX 16,18/45 (07/07/2023 12:15 PM COUNTRY MANAGER) Diagnosis [facility] INSURANCE BILL Comment:NEGATIVE FOR INTRAEP ITHELIAL LESION OR MALIGNANCY. Specimen Adequacy [facility] INSURANCE BILL Comment: Satisfactory for evaluation. Endocervical and/or squamous metaplastic cells (endocervical component) are present. Clinician Provided ICD10 [facility] INSURANCE BILL Comment: Z01.419 Z30.41 Performed by [facility] INSURANCE BILL Comment:Sue Pate Cyto technologist (ASCP) Comment . [facility] INSURANCE [...] guided system. Human papillomavirus Aptima Negative Negative [facility] INSURANCE BILL Comment: This nucleic acid amplification test detects fourteen high-risk HPV types (16,18,31,33,35,39,45,51,52,56,58,59,66,68) without differentiation. HPV Genotype Reflexed [facility] INSURANCE BILL Comment:Criteria not met, HP V Genotype not performed. PART OF UTERINE CERVIX / Unknown 07/07/2023 12:15 PM COUNTRY MANAGER 07/07/2023 Narrative [facility] INSURANCE BILL - 07/10/2023 1:10 PM COUNTRY MANAGER LMP / Prev Treat...QCA=[id number];None Other..............Oral Contraceptives No. of containers..01 ThinPrep Vial Resulting Agency Comment Lab Testing performed at: [address] [phone] Amaya Oliver APRN-DETECTIVE AND INTELLIGENCE ANALYST LAB - PATHOLOGY/CYTO LOGY ORDERABLES [facility] INSURANCE BILL [address] [place] [address] * CULTURE STREP B (09/08/2022 11:38 AM CDT) Culture Strep B Negative for beta-hemolytic Streptococcus Group B [place] 09/12/2022 8:49 AM CDT [facility] Microbiology MISCELLANEOUS SAMPLES / Unknown Collection / Unknown 09/08/2022 11:38 AM CDT 09/08/2022 11:46 AM CDT Perla Mendez MD LAB - MICROBIOLOGY O RDERABLES [facility] [address] [place], [place] [address], [place] [phone] from Last 3 Months or Most Recently Relevant to Health Maintenance Advance Directives * Full Code (Latest Code Status on File) Date Activated Date Inactivated Comments 09/08/2022 3:54 PM 09/11/2022 4:12 PM Care Teams Fish Cleaner Relationship Specialty Start Date End Date Lala Riggs PA-C [facility] [place] [address] PCP - General Physician Transport Specialist 09/08/22 Lala Riggs PA-C [address] [place] [phone] Physician Transport Specialist 09/08/22 Marck Bonner MD [facility] [address] Gastroenterology 02/09/15 Haylie Yun LCPC Behavioral Health Therapist 07/30/23
--- NOTE | 2024-07-14 06:14 | PM.IMHP ---
H&P: HPI History of Present Illness Date/Time: 07/14/24 06:14 Chief Complaint: Spontaneous rupture membranes Narrative: This patient is a 34-year-old female who presents for spontaneous rupture membranes. She is 35 weeks and 6 days gestation. She denies any contractions her vaginal bleeding. was previously the transverse position. It is seen in the breech position today ultrasound. Footling breech. We have agreed to perform delivery. The patient understands the details. Of the procedure. The procedure has been explained in detail. She understands the risks. She understands that injuries may occur that result in hospitalization, more surgery, and severe illness. She understands risk of hemorrhage and infection. She denies any chest pain or shortness of breath. She denies any nausea, vomiting, fever, chills. Review of Systems Review of Systems: All systems reviewed & are unremarkable except as noted in HPI and below Constitutional: Constitutional: Denies chills, Denies fatigue, Denies fever(s) and Denies weakness Eyes: Eyes: Denies blurry vision, Denies change in vision, Denies loss of peripheral vision, Denies loss of vision, Denies other visual disturbances and Denies eye pain ENT: Denies vertigo, Denies dizziness, Denies hearing loss, Denies mouth pain, Denies nasal obstruction, Denies neck mass and Denies neck pain Cardiovascular: Cardiovascular: Denies chest pain, Denies diaphoresis, Denies syncope, Denies leg edema and Denies dyspnea Respiratory: Respiratory: Denies chest congestion, Denies cough, Denies hemoptysis, Denies dyspnea and Denies wheezing Gastrointestinal: Gastrointestinal: Denies abdominal pain, Denies constipation, Denies diarrhea, Denies nausea and Denies vomiting Genitourinary: Genitourinary: Denies hematuria, Denies change in libido, Denies nocturia, Denies genital lesions, Denies flank pain and Denies urinary urgency Musculoskeletal: Musculoskeletal: Denies abnormal gait, Denies back pain, Denies myalgias, Denies arthralgias, Denies joint swelling, Denies muscle weakness and Denies neck pain Integumentary/Breasts: Skin/Breast: Denies swelling, Denies breast pain, Denies breast mass, Denies dry skin, Denies nipple discharge, Denies unusual bruising and Denies jaundice Neurologic: Denies Neuro-related abnormal movements, Denies Abnormal speech present, Denies abnormal gait, Denies behavioral changes, Denies confusion, Denies vertigo, Denies dizziness, Denies syncope, Denies loss of vision, Denies memory loss, Denies convulsions and Denies weakness Psychiatric: Psychiatric: Denies abnormal sleep pattern, Denies behavioral changes, Denies change in libido, Denies confusion, Denies depression, Denies anhedonia and Denies memory loss Endocrine: Endocrine: Reports no additional endocrine complaints, Denies change in libido and Denies fatigue Hematologic/Lymphatic: Hematologic/Lymphatic: Reports no additional hematologic/lymphatic complaints Allergic/Immunologic: Allergic/Immunologic: Reports no additional allergic/immunologic complaints and Denies wheezing Exam Const: General: cooperative, healthy appearing, comfortable and no acute distress Orientation/consciousness: oriented to person, oriented to place and oriented to time HENMT: Head: normal to inspection Ears: external ears normal Face/Nose/Sinus: Normal external nose present and normal facial exam Face and sinus: normal facial exam Eyes: General: appearance normal, both eyes and all related structures Neck: Neck: normal visual inspection, trachea midline and supple Resp: Auscultation: clear to auscultation bilaterally, no crackles, no rales, no rhonchi and no wheezes Cardio: Rate: regular rate Rhythm: regular rhythm Heart sounds: no click, no murmurs and no rubs GI: GI Palp: No abdominal tenderness, No Soft to palpation, No Tenderness to palpation present (GI) and No Palpable mass present Auscultation: normal bowel sounds Skin: General skin exam: normal color and no rashes or lesions noted Neuro: General: oriented to person, oriented to place and oriented to time Extrem: General: normal to inspection, no joint enlargement, no clubbing, cyanosis or edema, no pedal edema and no calf tenderness Psych: Appearance: grossly normal Mental Status: mental status grossly normal Speech and movement: Normal speech and movement present Assessment and Plan Assessment and plan (1) Breech presentation: Code(s): O32.1XX0 - Maternal care for breech presentation, not applicable or unspecified Status: Acute (2) 35 weeks gestation of : Code(s): Z3A.35 - 35 weeks gestation of Status: Acute (3) premature rupture of membranes: Code(s): O42.919 - premature rupture of membranes, unspecified as to length of time between rupture and onset of labor, unspecified trimester Status: Acute Plan This patient is a 34-year-old female who presents for spontaneous rupture membranes. She is 35 weeks and 6 days gestation. She denies any contractions her vaginal bleeding. Infant was previously the transverse position. It is seen in the breech position today ultrasound. Footling breech. We have agreed to perform delivery. She understands the risks, benefits, and alternatives. She has completed the informed consent process is ready to proceed.
[2024-07-14] MEDS: LACTATED RINGERS 1,000 ML 999 ML (06:18)
[2024-07-14] MEDS: ACETAMINOPHEN 500 MG TABLET 1000 MG (06:18)
[2024-07-14] MEDS: ONDANSETRON INJ 4 MG/2 ML VIAL (06:21)
[2024-07-14] MEDS: FAMOTIDINE 20 MG/2 ML VIAL (06:22)
--- NOTE | 2024-07-14 06:35 | WPDANESEPPF ---
Anes - Initial Pre Proc Eval Procedure: Operation Date: 07/14/24 06:35 Proposed Procedures p Section - Modesto Ying MD Date/Time: 07/14/24 06:35 Surgeon: Esteban Gil MD Pre Op Diagnosis: Leaking Patient Data Age: 34 Gender: F Height: 1.52 m Weight: 81.8 kg Patient hx anesthesia problems: none Family hx anesthesia problems: none Results Review: All pre-operative results and documents have been reviewed as part of the pre-operative evaluation. [facility] Past Medical History Medical History (Updated 07/14/24 @ 06:35 by Farnaz Roberts CRNA) Obesity Anes - Eval Final PreProcedure Day of Procedure 07/14/24 06:35 Results Review: All pre-operative results and documents have been reviewed as part of the pre-operative evaluation. Informed Consent: The patient's anesthetic plan and its attendant risks and benefits were discussed with the patient/family/POA. Questions were solicited and answers provided to the satisfaction of the patient/family/POA.
[2024-07-14 06:46] LABS: Basophils Absolute Auto 0.1 K/mm3 (0.0-0.1); Basophils Percent Auto 0.6 % (0.2-1.2); Eosinophils Absolute Auto 0.1 K/mm3 (0-0.3); Eosinophils Percent Auto 0.7 % (0-4.4); Hematocrit 38.2 % (37.0-47.0); Hemoglobin 12.3 g/dL (12.0-15.0); Immature Granulocyte Absolute 0.21 K/mm3 (0.00-0.031); Immature Granulocyte Percent A 1.7 % (0-0.5); Lymphocytes Absolute Auto 2.37 K/mm3 (0.9-3.2); Lymphocytes Percent Auto 19.5 % (18.3-44.2); Mean Corpuscular HGB Conc 32.2 g/dl (32-36); Mean Corpuscular Hemoglobin 27.8 pg (26-34); Mean Corpuscular Volume 86.2 fl (80-100); Mean Platelet Volume 10.6 fl (7.4-10.4); Monocytes Absolute Auto 0.9 K/mm3 (0.1-0.6); Monocytes Percent Auto 7.4 % (2.6-8.5); Neutrophils Absolute Auto 8.5 K/mm3 (1.3-6.7); Neutrophils Percent Auto 70.1 % (45.5-73.1); Platelet Count Result 199 k/mm3 (150-375); Red Blood Count 4.43 M/mm3 (4.2-5.4); Red Cell Distribution Width 14.6 % (11.5-14.5); White Blood Count 12.2 K/mm3 (4.5-10.0)
[2024-07-14] MEDS: ceFAZolin 2 GM/D5W 50 ML 2 GM/50 ML BAG IVPB (06:50)
[2024-07-14] MEDS: AZITHROMYCIN 500 MG/NS 250 ML 500 MG/250 ML BAG 250 MG IVPB (07:14)
[2024-07-14 07:33] LABS: HIV 1/2 Ab P24 Ag Result Negative (Negative)
--- NOTE | 2024-07-14 07:43 | W.PM.OBCSD ---
OB - Delivery Note Procedure Delivery date: 07/14/24 Pre-op diagnosis: Breech Presentation Post-op Diagnosis: Same Prior to decision for section, ACOG/SMFM labor guidelines were considered and discussed with the patient and staff. Decision made to proceed with the section.: Yes Procedure Performed: Primary Surgeon: Modesto Ying MD Anesthesia type: Spinal Description of Procedure/Findings: The patient was taken the operating room.? She was prepped and draped in dorsal supine position with a leftward tilt.? This was done after spinal anesthetic was applied.? A low-transverse skin incision was made and carried down till of the fascia with the knife.? The fascial incision was made with the knife.? The fascial incision was extended laterally with Salcedo scissors.? The fascia was tented upward superiorly and inferiorly the rectus muscles were dissected off bluntly.? The rectus muscles were the midline.? The preperitoneal fat and peritoneum were dissected open bluntly at the superior aspect of the rectus muscles.? The peritoneal incision was extended superior and inferior with good position of bladder.? The uterine incision was made with a scalpel down to the level of the amniotic cavity.? The amniotic cavity was entered bluntly.? The infant was delivered.? The cord was clamped and cut and the infant was handed off to waiting pediatric staff.? Cord bloods were obtained.? The placenta was removed manually.? The uterus was exteriorized.? The uterus was cleared of all clots, debris and membranes.? The uterus was closed in 0 Vicryl running lock fashion.? An imbricating over a was placed along the incision line as well.? The uterus was returned to the abdomen.? The gutters were cleared of all clots and debris.? The fascia was closed with 0 Vicryl running fashion.? The subcutaneous tissue was irrigated pinpoint bleeders were cauterized.? The skin was closed with subcuticular absorbable bre.? The skin incision line was covered with glue.? The patient tolerated the procedure well.? She has taken recovery room in stable condition.? Sponge lap and needle counts were correct x2.?
[2024-07-14 08:02] LABS: Rapid Plasma Reagin Non-Reactive (NonReactive)
--- NOTE | 2024-07-14 08:08 | LDADM ---
This patient, Jessica Ball, was admitted to Labor/Delivery/Recovery 108 on 07/14/24 at 05:03. Plans for labor, pain management and were discussed with patient. Patient/family oriented to hospital policies and general routines including ID bracelet, bed and alarms, visiting hours, pain management, procedures, bathroom and other care routines, personal items, smoking policy, room service/diet and guest tray routines, infant security routines, and visiting hours. Patient/Family are encouraged to report perceived risks to care and to ask questions if they do not understand what they are told or what they should do. See OBIX for further documentation.
[2024-07-14] MEDS: OXYTOCIN 30 UNITS/NS 500 ML 30 UNITS/500 ML BAG 125 UNITS IV CONT (08:54)
--- NOTE | 2024-07-14 10:15 | PC.NURSE ---
Patient transferred to post room #279 via stretcher. Support person present. Oriented to unit, room, information board, rooming in, admission packet and security measures. Patient verbalizes understanding.
[2024-07-14] MEDS: ACETAMINOPHEN 325 MG TABLET 650 MG PO ×2 (12:59→18:55)
[2024-07-14] MEDS: DEXTROSE 5%/0.45% SOD CHL 1,000 ML 125 ML IV CONT (12:59)
[2024-07-14] MEDS: SIMETHICONE 80 MG TAB.CHEW PO ×2 (13:00→17:11)
[2024-07-14] MEDS: KETOROLAC 15 MG/ML VIAL (*BKC) IV PUSH ×2 (13:00→18:55)
[2024-07-14] MEDS: LORATADINE 10 MG TABLET PO (17:10)
[2024-07-14] MEDS: DOCUSATE SODIUM 100 MG CAPSULE PO (17:11)
[2024-07-14] MEDS: KCL 20 MEQ/D5/0.45% SOD CHL 1,000 ML 125 ML IV CONT (21:00)
[2024-07-15] MEDS: ACETAMINOPHEN 325 MG TABLET 650 MG PO ×4 (01:42→22:40)
[2024-07-15] MEDS: KETOROLAC 15 MG/ML VIAL (*BKC) IV PUSH ×2 (01:42→08:47)
[2024-07-15 04:00] VITALS: BP 122/81; PULSE 102; RESP 18; TEMP 36.5; O2SAT 98
[2024-07-15 05:07] LABS: Basophils Absolute Auto 0.1 K/mm3 (0.0-0.1); Basophils Percent Auto 0.6 % (0.2-1.2); Eosinophils Absolute Auto 0.1 K/mm3 (0-0.3); Eosinophils Percent Auto 0.8 % (0-4.4); Hematocrit 32.4 % (37.0-47.0); Hemoglobin 10.1 g/dL (12.0-15.0); Immature Granulocyte Percent A 1.7 % (0-0.5); Lymphocytes Absolute Auto 1.66 K/mm3 (0.9-3.2); Lymphocytes Percent Auto 14.4 % (18.3-44.2); Mean Corpuscular HGB Conc 31.2 g/dl (32-36); Mean Corpuscular Hemoglobin 27.9 pg (26-34); Mean Corpuscular Volume 89.5 fl (80-100); Mean Platelet Volume 10.1 fl (7.4-10.4); Monocytes Absolute Auto 0.8 K/mm3 (0.1-0.6); Monocytes Percent Auto 6.8 % (2.6-8.5); Neutrophils Absolute Auto 8.7 K/mm3 (1.3-6.7); Neutrophils Percent Auto 75.7 % (45.5-73.1); Platelet Count Result 144 k/mm3 (150-375); Red Blood Count 3.62 M/mm3 (4.2-5.4); Red Cell Distribution Width 14.8 % (11.5-14.5); White Blood Count 11.6 K/mm3 (4.5-10.0)
[2024-07-15 07:20] VITALS: BP 127/94; PULSE 110; RESP 20; TEMP 36.6; O2SAT 100
--- NOTE | 2024-07-15 07:56 | P.PNOB_ITS ---
OB - PN: Subj Subjective Date/time seen: 07/15/24 07:56 Interval history: post op day 1 doing well flatus present OB - PN: Obj Data Labs 07/15/24 04:02 Labs: Laboratory Results - last 24 hr 07/14/24 07/15/24 06:26 04:02 WBC 11.6 H RBC 3.62 L Hgb 10.1 L Hct 32.4 L MCV 89.5 MCH 27.9 MCHC 31.2 L RDW 14.8 H Plt Count 144 L MPV 10.1 Immature Gran % (Auto) 1.7 H Neut % (Auto) 75.7 H Lymph % (Auto) 14.4 L [place] % (Auto) 6.8 Eos % (Auto) 0.8 Baso % (Auto) 0.6 Lymph # (Auto) 1.66 [place] # (Auto) 0.8 H Eos # (Auto) 0.1 Baso # (Auto) 0.1 Abs Immat Gran (auto) 0.20 H Absolute Neuts (auto) 8.7 H Absolute Nucleated RBC 0.000 Nucleated RBC % 0.0 RPR Non-reactive OB - PN A/P Plan day: 1 Plan: routine care Time Spent With Patient Time: Total time spent is greater than 50% in coordination of care (as documented) at patient's floor/unit and/or counseling patient: Review of Systems 2 Review of Systems: All systems reviewed & are unremarkable except as noted in HPI and below Exam 2 Const: General: cooperative Resp: Effort & Inspection: normal respiratory effort Cardio: Rate: regular rate GI: Other: incision CDI
--- NOTE | 2024-07-15 08:01 | WPDANLDPN2 ---
Anes-Prog Note L&D Date/Time: 07/15/24 08:01 Comfortable throughout: section Neuraxial method: spinal Epidural/Spinal procedure site: clean & non-tender Neuro status: Neuro function grossly intact. Cardiovascular status: normal Respiratory status: normal Airway patency: baseline Mental status: baseline Post-Op hydration status: normal Vital Signs: Last Vital Signs Temp 36.5 C 07/15/24 04:00 Pulse 102 H 07/15/24 04:00 Resp 18 07/15/24 04:00 BP 122/81 07/15/24 04:00 Pulse Ox 98 07/15/24 04:00 O2 Del Method Room Air 07/14/24 10:00 Pain score (VAS): 3/10 I/O: Intake & Output 07/14/24 07/15/24 07/15/24 23:59 07:59 15:59 Intake Total 1790 875 Output Total 400 1850 Balance 1390 -975 Post-procedural complaints: other (headache across eyes and radiates around to back of neck, pt thinks it is a sinus headache similar to headaches in the past. ) Patient feedback: Patient satisfied with anesthetic care.
--- NOTE | 2024-07-15 08:03 | WPDANLDNPN2 ---
Anes-Prog Note L&D-Neuraxial Date/Time: 07/15/24 08:03 Neuraxial medications: intrathecal PF morphine Opiod-related complaints: none Patient feedback: Patient satisfied with post-operative pain management.
[2024-07-15] MEDS: MULTIVIT/MIN/PREN/FOL AC/IRON TABLET 1 TAB PO (08:47)
[2024-07-15] MEDS: DOCUSATE SODIUM 100 MG CAPSULE PO ×2 (08:48→16:57)
[2024-07-15] MEDS: SIMETHICONE 80 MG TAB.CHEW PO ×3 (08:48→16:57)
[2024-07-15] MEDS: POLYSACCHARIDE IRON COMPLEX 150 MG CAPSULE PO ×2 (08:48→16:57)
--- NOTE | 2024-07-15 08:54 | P.PNOB_ITS ---
OB - PN: Subj Subjective Date/time seen: 07/15/24 08:54 Interval history: post op day 1 doing well flatus present Patient comments: no complaints, pain well controlled, tolerating diet and flatus present OB - PN: Obj Data Labs 07/15/24 04:02 Labs: Laboratory Results - last 24 hr 07/15/24 04:02 WBC 11.6 H RBC 3.62 L Hgb 10.1 L Hct 32.4 L MCV 89.5 MCH 27.9 MCHC 31.2 L RDW 14.8 H Plt Count 144 L MPV 10.1 Immature Gran % (Auto) 1.7 H Neut % (Auto) 75.7 H Lymph % (Auto) 14.4 L [place] % (Auto) 6.8 Eos % (Auto) 0.8 Baso % (Auto) 0.6 Lymph # (Auto) 1.66 [place] # (Auto) 0.8 H Eos # (Auto) 0.1 Baso # (Auto) 0.1 Abs Immat Gran (auto) 0.20 H Absolute Neuts (auto) 8.7 H Absolute Nucleated RBC 0.000 Nucleated RBC % 0.0 OB - PN A/P Plan day: 1 Comments: Post Op LTCS - no problems, routine recovery Time Spent With Patient Time: Total time spent is greater than 50% in coordination of care (as documented) at patient's floor/unit and/or counseling patient: Exam 2 Const: General: cooperative, healthy appearing, comfortable and no acute distress Resp: Auscultation: no crackles, no rales, no rhonchi and no wheezes Cardio: Rhythm: regular rhythm Heart sounds: no click and no murmurs GI: Inspection: non-distended Auscultation: normal bowel sounds Extrem: General: normal to inspection, no pedal edema and no calf tenderness
[2024-07-15] MEDS: PSEUDOEPHEDRINE HCL 30 MG TABLET PO (10:06)
[2024-07-15] MEDS: TETANUS,DIPHTHERIA,AC PERTUSSIS ADULT (0.5 ML) BOOSTRIX IM (10:07)
[2024-07-15] MEDS: IBUPROFEN 600 MG TABLET PO ×2 (15:08→22:40)
[2024-07-16 00:50] VITALS: BP 118/87; PULSE 110; RESP 18; TEMP 36.2; O2SAT 99
[2024-07-16] MEDS: PSEUDOEPHEDRINE HCL 30 MG TABLET PO (00:50)
[2024-07-16] MEDS: ACETAMINOPHEN 325 MG TABLET 650 MG PO ×4 (04:10→23:13)
[2024-07-16] MEDS: IBUPROFEN 600 MG TABLET PO ×4 (04:10→23:13)
[2024-07-16 08:00] VITALS: BP 126/86; PULSE 100; RESP 16; TEMP 37; O2SAT 99
--- NOTE | 2024-07-16 08:59 | P.PNOB_ITS ---
OB - PN: Subj Subjective Date/time seen: 07/16/24 08:59 Interval history: POD#2 s/p PLTCS Pain controlled Voiding without issue Passing flatus Tolerating general diet OB - PN: Obj Data Labs 07/15/24 04:02 OB - PN A/P Assessment and Plan (1) S/P : Code(s): Z98.891 - History of uterine scar from previous surgery Status: Acute Plan day: 2 Plan: routine care Time Spent With Patient Time: Total time spent is greater than 50% in coordination of care (as documented) at patient's floor/unit and/or counseling patient: Review of Systems 2 Review of Systems: All systems reviewed & are unremarkable except as noted in HPI and below Exam 2 Const: General: comfortable and no acute distress O rientation/consciousness: patient oriented x3 Resp: Effort & Inspection: normal respiratory effort GI: Other: incision c/d/i
[2024-07-16] MEDS: MULTIVIT/MIN/PREN/FOL AC/IRON TABLET 1 TAB PO (10:04)
[2024-07-16] MEDS: SIMETHICONE 80 MG TAB.CHEW PO ×3 (10:04→17:21)
[2024-07-16] MEDS: DOCUSATE SODIUM 100 MG CAPSULE PO (10:04)
[2024-07-16 20:10] VITALS: BP 137/90; PULSE 94; RESP 16; TEMP 36.4; O2SAT 99
[2024-07-16 22:35] VITALS: BP 133/91; PULSE 86; RESP 16; TEMP 36.7; O2SAT 97
[2024-07-17] MEDS: ACETAMINOPHEN 325 MG TABLET 650 MG PO ×4 (05:23→23:09)
[2024-07-17] MEDS: IBUPROFEN 600 MG TABLET PO ×4 (05:23→23:09)
[2024-07-17 08:10] VITALS: BP 147/89; PULSE 70; RESP 16; TEMP 36.6; O2SAT 100
--- NOTE | 2024-07-17 08:39 | P.PNOB_ITS ---
OB - PN: Subj Subjective Date/time seen: 07/17/24 08:39 Interval history: POD#3 s/p PLTCS Pain controlled Voiding without issue Passing flatus Tolerating general diet Baby still admitted to gain weight OB - PN: Obj Data Labs 07/15/24 04:02 OB - PN A/P Assessment and Plan (1) S/P : Code(s): Z98.891 - History of uterine scar from previous surgery Status: Acute Plan day: 3 Plan: routine care Time Spent With Patient Time: Total time spent is greater than 50% in coordination of care (as documented) at patient's floor/unit and/or counseling patient: Review of Systems 2 Review of Systems: All systems reviewed & are unremarkable except as noted in HPI and below Exam 2 Const: General: comfortable and no acute distress O rientation/consciousness: patient oriented x3 Resp: Effort & Inspection: normal respiratory effort GI: Other: incision c/d/i
[2024-07-17] MEDS: SIMETHICONE 80 MG TAB.CHEW PO ×3 (09:23→17:20)
[2024-07-17] MEDS: MULTIVIT/MIN/PREN/FOL AC/IRON TABLET 1 TAB PO (09:23)
[2024-07-17] MEDS: DOCUSATE SODIUM 100 MG CAPSULE PO ×2 (09:23→17:20)
[2024-07-17 18:45] VITALS: BP 136/93; PULSE 96; RESP 16; TEMP 36.6; O2SAT 100
[2024-07-18] MEDS: IBUPROFEN 600 MG TABLET PO ×2 (05:16→11:37)
[2024-07-18] MEDS: ACETAMINOPHEN 325 MG TABLET 650 MG PO ×2 (05:16→11:37)
[2024-07-18 08:15] VITALS: BP 134/95; PULSE 98; RESP 16; TEMP 36.6; O2SAT 99
[2024-07-18] MEDS: MULTIVIT/MIN/PREN/FOL AC/IRON TABLET 1 TAB PO (08:19)
[2024-07-18] MEDS: DOCUSATE SODIUM 100 MG CAPSULE PO (08:19)
[2024-07-18] MEDS: SIMETHICONE 80 MG TAB.CHEW PO ×2 (08:19→11:37)
--- NOTE | 2024-07-18 12:03 | PC.NURSE ---
Patient viewed the discharge video Mother & Baby Care, The First Two Weeks . Patient was given the opportunity and encouraged to ask questions. Patient verbalized understanding of information shared and has been given the mother/baby guide for home reference.
--- NOTE | 2024-07-18 12:26 | P.PNOB_ITS ---
OB - PN: Subj Subjective Date/time seen: 07/18/24 12:26 Interval history: POD#4 s/p PLTCS Pain controlled Voiding without issue Passing flatus Tolerating general diet Ready for discharge home today OB - PN: Obj Data Labs 07/15/24 04:02 OB - PN A/P Assessment and Plan (1) S/P : Code(s): Z98.891 - History of uterine scar from previous surgery Status: Acute Plan day: 4 Plan: routine care and discharge home Time Spent With Patient Time: Total time spent is greater than 50% in coordination of care (as documented) at patient's floor/unit and/or counseling patient: Review of Systems 2 Review of Systems: All systems reviewed & are unremarkable except as noted in HPI and below Exam 2 Const: General: comfortable and no acute distress O rientation/consciousness: patient oriented x3 Resp: Effort & Inspection: normal respiratory effort GI: Other: incision c/d/i
--- NOTE | 2024-07-18 12:31 | PM.OBDSVD ---
DS: Admitting Diagnosis Discharge Date 07/18/24 Admitting Diagnosis PPROM, breech presentation DS: Discharge Diagnosis Discharge Diagnosis (1) S/P : Code(s): Z98.891 - History of uterine scar from previous surgery Status: Acute OB - DS: Summary OB Procedures : None OB Procedures Intrapartum: low cervical, transverse OB Procedures: : None Peripartum Data Procedures: Procedures Operation Date: 07/14/24 06:35 Actual Procedure Side Surgeon p Section [place] Ying MD Time Spent with Patient Time attestation: Total time spent providing and/or coordinating discharge services: Discharge Plan Discharge Attending physician on discharge: Esteban Gil Discharging Clinician: Esteban Gil Patient Disposition: Home, Self-Care Activity: may shower, may drive after 2 weeks, as tolerated and pelvic rest Diet: as tolerated Patient Instructions: Antibiotic Form Patient Language: Prydeinig Stand Alone Forms: General Discharge Information Follow-up/Referrals: Esteban Gil MD [Physician] - 1 Week Discharge Medications: New ibuprofen 600 mg Tablet 600 mg PO Q6H Qty: 60 0RF Continued PNV cmb#95-ferrous fumarate-FA [] 28 mg iron- 800 mcg tablet 1 tablet PO DAILY ferrous sulfate [Feosol] 325 mg (65 mg iron) tablet 325 mg PO DAILY omeprazole 20 mg capsule,delayed release(DR/EC) 20 mg PO DAILY escitalopram oxalate [Lexapro] 20 mg tablet 20 mg PO DAILY Discontinued aspirin 81 mg capsule 81 mg PO DAILY Date of admission: 07/14/24 05:03 Primary Care Provider: PHYSICIAN NOT ON STAFF,NONSTAFF Admitting Provider: Esteban Gil Attending physician on admission: Esteban Gil Condition: Stable
[2024-07-19 12:56] VITALS: BP 130/90; PULSE 80; RESP 18; TEMP 37.2; O2SAT 99
== END 2024-07-18 15:19 | disposition home or self-care (01) | DRG 788 ==
LOC: ANHLDR 05:38 → ANHOB2 10:18
PROVIDERS: Admitting Provider Obstetrics & Gynecology; Visit Provider Obstetrics & Gynecology
PROC: 10D00Z1 Extraction of Products of Conception, Low, Open Approach (ICD-10-PCS; CPT 59514; principal; 2024-07-14 06:35)
DX: O42.013 Preterm premature rupture of membranes, onset of labor within 24 hours of rupture, third trimester (principal); O32.8XX0 Maternal care for other malpresentation of fetus, not applicable or unspecified; Z37.0 Single live birth; Z3A.35 35 weeks gestation of pregnancy
CPT/HCPCS: 36415; 85025; 86592; 86703; 86850; 86900; 86901; 90715; A9270; G0432; J0456; J0690; J1885; J2175; J2274; J2405; J2590; J3480; J7120

== ENCOUNTER 2024-10-04 15:17 | Outpatient (CLI) | payer BC, SELFPAY ==
--- OUTSIDE RECORDS SUMMARY | 2024-10-04 15:29 | XMS_ITS | Encounter Summary ---
Author Organization [facility] Address [address] [place] [address] Care Team Providers Care Plate Washer Name Role Phone Lala Riggs PA-C Primary Care Provider [phone] Lala Riggs PA-C Unavailable [phone] Marck Bonner MD Unavailable [phone] Haylie Yun LCPC Unavailable Unavailable Reason for Visit * Reason Onset Date Comments MEDICATION REFILL 09/25/2023 Encounter Details Date Type Department Care Team (Late st Contact Info) Description 09/25/2023 Refill [facility] [address] [place] [phone] Chelsie Monet, KNUCKLE BENDER-AUTO LEASING MANAGER [address] [place], [place] [address] MEDICATION REFILL Social History Tobacco Use Types [...] Recorded Patient Health Questionnaire-2 Score 0 08/25/2023 [facility] [place] [facility] Occup[facility] - Occupational Stress [...] place to sleep or slept in a long term (including now)? No 09/08/2022 [place] Depression Scale Answer Date Recorded [place] Depression Scale Total 10 09/17/2022 The thought of harming myself has occurred to me . Never 09/17/2022 Comments No Sex and Gender Information Value Date Recorded Sex Assigned at Female 09/09/2022 10:15 AM CDT Legal Sex Female 10:03 AM CDT Gender Identity Female 09/09/2022 10:15 AM CDT Sexual Orientation Straight 09/09/2022 10 :15 AM CDT documented as of this encounter Functional Status * Is person deaf or have serious hearing difficulty? Answer Date of Assessment Author No 09/08/2022 4:01 PM CDT Nadia Mejía RN * Is person blind or have serious difficulty seeing? Answer Date of Assessment Author No 09/08/2022 4:01 PM CDT Nadia Mejía RN * Does person have serious difficulty walking/climbing stairs? Answer Date of Assessment Author No 09/08/2022 4:01 PM CDT Nadia Mejía RN * Does person have difficulty dressing/bathing? Answer Date of Assessment Author No 09/08/2022 4:01 PM CDT Nadia Mejía RN * Does person have difficulty doing errands alone? Answer Date of Assessment Author No 09/08/2022 4:01 PM CDT Nadia Mejía RN documented as of this encounter Mental Status * Does person have difficulty concentrating/remembering/making decisions? Answer Entry Date Author No 09/08/2022 4:01 PM CDT Nadia Mejía RN documented in this encounter Miscellaneous Notes * Telephone Encounter - Roshni Diaz RN - 09/25/2023 11:59 AM CDT Should have one refill due documented in this encounter Plan of Treatment Upcoming Encounters Date Type Department Care Team (Late st Contact Info) Description 10/25/2024 4:00 PM CDT Office Visit [facility] Behavioral Health [address] [place] [address] Chelsie Monet, KNUCKLE BENDER-AUTO LEASING MANAGER [address] [place], [place] [id number] documented as of this encounter Visit Diagnoses Diagnosis Personality disorder (HCC) Unspecified personality disorder Anxiety with depression documented in this encounter Care Teams Plate Washer Relationship Specialty Start Date End Date Lala Riggs PA-C [address] [place] [address] PCP - General Physician Borough Coordinator 09/08/22 Lala Riggs PA-C [address] [place] [address] Physician Borough Coordinator 09/08/22 Marck Bonner MD [address] [address] Gastroenterology 02/09/15 Haylie Yun LCPC Behavioral Health Therapist 07/30/23 documented as of this encounter
--- OUTSIDE RECORDS SUMMARY | 2024-10-04 15:29 | XMS_ITS | Encounter Summary ---
Author Organization [facility] Address [address] [place] [address] Care Team Providers Care Harness Repairer Name Role Phone Lala Riggs PA-C Primary Care Provider [phone] Lala Riggs PA-C Primary Care Provider [phone] Lala Riggs PA-C Unavailable [phone] Marck Bonner MD Unavailable [phone] Haylie Yun LCPC Unavailable Unavailable Reason for Visit * Reason Onset Date Comments MEDICATION REFILL 08/15/2019 Encounter Details Date Type Department Care Team (Late st Contact Info) Description 08/15/2019 Refill [facility] - Family Medicine [address] [place] [address] Lala Riggs PA-C [address] [place] [address] MEDICATION REFILL Social History Tobacco Use Types Packs/Day Years Used Date Smoking Tobacco: Never Smokeless Tobacco: Never Alcohol Use Standard Drinks/Week Comments No 0 (1 standard drink = 0.6 oz pur e alcohol) Comments No Sex and Gender Information Value [...] Description 10/25/2024 4:00 PM CDT Office Visit [facility] [address] 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[employer] LIVESTOCK FARMER COVID-19 Under Investigation 06/10/2021 06/10/2021 06/11/2021 1:46 PM MIXED CROP AND LIVESTOCK FARMER COVID-19 Confirmed 06/10/2021 06/10/2021 4:33 AM MIXED CR[employer] AND LIVESTOCK FARMER COVID-19 Under Investigation 06/03/2023 06/03/2023 06/04/2023 5:11 AM MIXED CR[employer] AND LIVESTOCK FARMER documented as of this encounter Care Teams Harness Repairer Relationship Specialty Start Date End Date Lala Riggs PA-C [address] [place] [phone] PCP - General Physician Outreach Nurse 10/18/12 09/07/22 Lala Riggs PA-C [address] [place] [phone] PCP - General Physician Outreach Nurse 09/08/22 Lala Riggs PA-C [address] [place] [phone] Physician Outreach Nurse 09/08/22 Marck Bonner MD [address] [place] [address] Gastroenterology 02/09/15 Haylie Yun LCPC Behavioral Health Therapist 07/30/23 documented as of this encounter
--- OUTSIDE RECORDS SUMMARY | 2024-10-04 15:29 | XMS_ITS | Data Portability ---
Author Organization [facility] Address [address] [place] [address] [place] [address] Care Team Providers Care Marketing Engineer Name Role Phone JOSEFINA LAWLER Primary Care Provider [phone] Assessment No assessment recorded. Plan of Treatment Reminders Order Date Submit Date Provider Last Modified By Organization Details Last Modified Time Details Appointments SURG Salpingec avi 2024 10:00A Herman YING MD Not available Not available Not available SURG POST OP 2024 09:30A Herman YING MD Not available Not available Not available Lab None recorded. Referral None recorded. Procedures None recorded. Surgeries None recorded. Imaging US, obstetric , follow-up 2024 025 [email or web address], [facility] [address], [address], [place], [address], 06/22/2024 21:50:37 Medication Orders triamcino lone acetonide 0.5 % topical cream 2024 025 [facility] [address] [place], [address], 08/23/2024 10:19:48 Patient TargetsNo targets recorded. Patient InstructionsNo instructions recorded. Reason for Referral None Reported. Results Created Date Observation Date Name Description Value Unit Range Abnormal Flag Note LastModifiedBy Organization Detail LastModifiedTime 05/27/20 24 05/27/2024 HEMOG LOBIN (HGB) HGB 11.8 g/dL (based on docume nted legal sex) 11.6-1 5.4 Not Available [facility] (Lab) [address], [place], [address], 05/28/2024 13:49:05 05/27/20 24 05/27/2024 HEMAT OCRIT (HCT) HCT 37.0 % (based on docume nted legal sex) 34.0-4 5.0 Not Available [facility] (Lab) [address], [place], [address], 05/28/2024 13:49:06 05/27/20 24 05/27/2024 GTT - GESTA MUNA L SCREE N, ACOG OB glucose, 1 hour screen 112 mg/dL 70-135 Not Available [facility] (Lab) [address], [place], [address], 05/28/2024 13:49:06 05/27/20 24 05/27/2024 HIV 1/2 ANTIG EN/AN TIBOD Y, REFLE X CONFI RMATI ON HIV antigen/anti body Nonrea ctive nonrea ctive HIV-1 antig en and HIV-1 /HIV- 2 antib odies were not detec jerzy. No labor atory evide nce of HIV infec tion. Not Available [facility] (Lab) [address], [place], [address], 05/28/2024 13:49:06 05/27/20 24 05/27/2024 RPR SCREE N, REFLE X TITER /CONF IRMAT ION RPR screen Nonrea ctive nonrea ctive Not Available [facility] (Lab) [address], [place], [address], 05/28/2024 13:49:07 06/22/19 25 06/22/2024 US, nicole lewis w-up No observ ation record ed. [facility] [address], [place], [address], 06/22/2024 18:45:55 06/22/19 25 06/22/2024 US, obste tric, follo w-up No observ ation record ed. [email or web address], [place], [address], 06/22/2024 21:47:09 Result Notes None recorded. Problems Name Problem SNOMED Code Status Onset Date Resolution Date Notes Provider Name and Address Organization Details Recorded Time Pregnanc y 71751211 Completed 202307/26/2024 JW GALAN MD [address], [place], [address], [facility] 5 10:55:20 Past pregnanc y history of gestatio nal hyperten gloria 782837688 Completed delivery at 31 weeks; preE vs gHTN Jo Chiu [facility] 5 19:06:58 prematur e rupture of membrane s 536577654 Completed hx of in G1, delivery at 31 weeks Jo Chiu [facility] 5 19:06:58 prematur e rupture of membrane s 789059042 Active hx of in G1, delivery at 31 weeks Jo Chiu [facility] 5 19:06:58 Past pregnanc y history of gestatio nal hyperten gloria 423551790 Active delivery at 31 weeks; preE vs gHTN Jo Chiu [facility] 5 19:06:58 Problem Notes None recorded. Procedures Surgical History Date Name Laterality Status Provider Name and Address Organization Details Recorded Time 5 section completed Jo Chiu [facility] 08/23/2024 19:10:17 4 Date of Last Pap Smear completed Lucero Ayala [facility] 01/04/2024 14:58:25 0 extraction of wisdom tooth completed Jo Chiu [facility] 08/23/2024 19:10:32 6 Oral surgery procedure completed [facility] 08/23/2024 19:11:27 4 Oral surgery procedure completed [facility] 08/23/2024 19:11:22 2 Oral surgery procedure completed [facility] 08/23/2024 19:11:12 0 Oral surgery procedure completed [facility] 08/23/2024 19:11:03 Imaging Results Imaging Date Name Status LastModified by Organiz ation Details LastModified Time 06/22/2024 US, obstetric, follow-up completed [facility] [address], [place], [address], 06/22/2024 18:45:55 06/22/2024 US, obstetric, follow-up completed [email or web address], [place], [address], 06/22/2024 21:47:09 Procedure Notes None recorded. Medical Equipment None Reported. Allergies No known drug allergies Medications Name Sig Start Date Stop Date Status Note LastModified by Organization Details LastModified Time triamcinolo ne acetonide 0.5 % topical cream APPLY A THIN LAYER TO THE AFFECTED AREA(S) BY TOPICAL ROUTE 2 TIMES PER DAY 08/23 completed Not Available Not Available Not Available sertraline 100 mg tablet TAKE ONE TABLET BY MOUTH DAILY 01/03 completed Not Available Not Available Not Available amoxicillin 875 mg tablet TAKE ONE TABLET BY MOUTH TWICE DAILY FOR 10 DAYS 01/03 completed Not Available Not Available Not Available benzonatate 100 mg capsule take 1-2 CAPSULES BY MOUTH THREE TIMES DAILY NEEDED 01/03 completed Not Available Not Available Not Available ibuprofen 600 mg tablet 08/23 completed Not Available Not Available Not Available [...] Not Available Not Av ailable Not Available 07/26 completed Not Available Not Available Not Available lisdexamfet amine 30 mg capsule [...] Available Not Available Not Available Estarylla 0.25 mg-0.035 mg tablet TAKE 1 TABLET BY MOUTH ONCE DAILY 01/03 completed Not Available Not Available Not Available Vitals Date Recorded Body height Body mass index (BMI) Body weight Systolic blood pressure Diastolic blood pressure Provider Name and Address Organization Details Last Updated DateTime 06/22/2024 152.4 cm 34.6 kg/m2 48457.85 g 106 mm[Hg] 68 mm[Hg] Pina Reeves [facility] 16:03:09 Date Recorded Body height Body mass index (BMI) Body weight Systolic blood pressure Diastolic blood pressure Provider Name and Address Organization Details Last Updated DateTime 07/06/2024 152.4 cm 35.2 kg/m2 60787.63 g 125 mm[Hg] 86 mm[Hg] Pina Leandro [facility] 12:51:50 Date Recorded Body height Body mass index (BMI) Body weight Systolic blood pressure Diastolic blood pressure Provider Name and Address Organization Details Last Updated DateTime 07/26/2024 152.4 cm 30.7 kg/m2 85001 g 120 mm[Hg] 82 mm[Hg] Pina Reeves [facility] 10:26:51 Date Recorded Body height Body mass index (BMI) Body weight Systolic blood pressure Diastolic blood pressure Provider Name and Address Organization Details Last Updated DateTime 08/23/2024 152.4 cm 31.2 kg/m2 35994.78 g 108 mm[Hg] 77 mm[Hg] Jo Chiu [facility] 10:19:29 Social History Question Answer Notes LastModified by [...] Or The Highest Degree You Have Received? 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 No Information not available 01/04/2024 Do You Use Protection During Sex? No Information not available 01/04/2024 Do You Use Your Seat Belt Or Car Seat Routinely? Yes Information not available 01/04/2024 Are You Sexually Active? Yes Information not available 07/26/2024 Do You Have Smoke And Carbon Monoxide Detectors In Your Home? Yes Information not available 01/04/2024 How Much Tobacco Do You Smoke? No Information not available 01/04/2024 Do You Feel Stressed (tense, Restless, Nervous, Or Anxious, Or Unable To Sleep At Night)? [id number] Information not available 01/04/2024 Do You Use Any Illicit Or Recreational Drugs? No Information not available 01/04/2024 Do You Use Sunscreen Routinely? No Information not available 01/04/2024 Have You Used IV Drugs? No Information not available 01/04/2024 Sex: Unknown Functional Status Question Answer Note LastModified by Organizat ion Details LastModified Time Do you have difficulty walking or climbing stairs? No [email or web address] Information not available 07/26/2024 Are you able to walk? YESWOREST Information not available 01/04/2024 Are you able to care for yourself? Yes [email or web address] Information not available 07/26/2024 Do you have difficulty dressing or bathing? No Information not available 07/26/2024 What is your exercise level? Moderate Information [...] available 2023 14:44:40 Medical History Condition Response Other N Blood Transfusion N Dermatologic Disorders N Gestational Diabetes N Anxiety Disorder Y Autoimmune disease N Arthritis N Polyps N Infertility N Acid Reflux (GERD) Y Cancer N Varicosities N Stroke N Neurologic/Epilepsy N Fibromyalgia N Headaches Y Kidney Disease N Heart Problems N Kidney or Bladder Problems N Eating Disorder N Art (IVF or FET) N Hepatitis/Liver Disease N No Past Medical History N Urinary Tract Infection N Asthma N Trauma/Violence N Thrombophilias N Allergies (Food, seasonal, environmental ) N Breast Cancer N Drug/Latex Allergies/Reactions N Lung Disease N Defects or Inherited Disease N Breast Problem N Hematologic disorders N Anesthesia Complications N History of STI N Deep Vein Thrombosis N Polycystic ovary syndrome N History of abnormal pap N Endometriosis N High Cholesterol N Thyroid Problems N GI Problems N Anemia N Psychiatric Illness N Ovarian Cancer N Diabetes N Pulmonary (TB, Asthma) N Eczema N Abuse/Domestic Violence N Depression/ depression Y Heart Disease N Pre-Eclampsia Y Hypertension Y Osteoporosis N Gynecological History Statement/Question Response Date of Last Mammogram Date of LMP 11/06/2023 On BCP's at Conception? N N Was last menstrual period normal N STIs/STDs N HPV Vaccine N Duration of Flow (days) 4 Current Control Method None Age at First Child 32 Date of Last Colonoscopy Frequency of Cycle (Q days) 30 Sexually Active? Y Condoms Date of DEXA bone scan Age of first menstrual cycle 14 Date of Last Pap Smear 07/07/2023 Sexual Problems? N Desired Control Method Condoms LMP Definite N Obstetrics History GPAL:G 2 P 1 1 0 2 Type Value Full Term 1 Premature 1 Living 2 Total 2 Past Encounters Encounter ID Performer Location Encounter Start Date Encounter Closed Date Diagnosis/Indication Diagnosis SNOMED-CT Code Diagnosis ICD10 Code Diagnosis Note [id number] JW GALAN MD [facility] [address] [address] 01/04/2024 13:59:16 01/04/2024 14:27:46 [id number] JW GALAN MD [facility] [address],[place] [address] 01/04/2024 13:59:47 01/04/2024 17:42:02 test positive 742883122 Z32.01 1. Exam today within normal limits.2. Ultrasound today confirms GA and viability. EDC . GC/Clamydi a testing done: will f/u as indicated. 4. ACOG guidelines and plan of care for reviewed with patient. All questions answered.5 . Return to office at 12 weeks for new OB visit6. Will need new OB labs at next visit.7. Genetic screening: desires. Past pregn bren history of gestational hypertension 530647545 Z87.59 - hx of gHTN vs preeclamps ia- discussed ldASA starting at 12 weeks Past pregn bren history of premature rupture of membranes 6663693981 78448 Z87.59 - at 31 weeks [id number] Modesto Ying MD [facility] [address],[place] [address] 02/09/2024 09:39:19 02/09/2024 13:35:29 screening 091502918 Z36.87 Z3A.13 [id number] JW GALAN MD [facility] [address],[place] [address] 02/09/2024 09:46:26 02/10/2024 02:21:09 screening 368020932 Z36.89 Routine an tenatal care 160279657 Z34.90 Past pregn bren history of gestational hypertension 339804665 Z87.59 - hx of gHTN vs preeclamps ia- discussed ldASA starting at 12 weeks pr emature rupture of membranes 525051113 O42.919 Gestation period, 13 weeks 85910084 Z3A.13 [id number] Modesto Ying MD [facility] [address],[place] [address] 03/08/2024 10:54:30 03/08/2024 11:51:07 [id number] Modesto Ying MD [facility] [address] [place] [address] 04/05/2024 09:51:19 04/05/2024 10:58:04 Gestation period, 21 weeks 56060054 Z3A.21 [id number] JW GALAN MD [facility] [address],[place] [address] 04/05/2024 09:51:39 04/08/2024 12:13:26 Routine care 908312881 Z34.90 [id number] JW GALAN MD [facility] [address],[place] [address] 05/04/2024 09:57:31 05/04/2024 10:56:42 Past history of gestational hypertension 702889349 Z87.59 - hx of gHTN vs preeclamps ia- discussed ldASA starting at 12 weeks pr emature rupture of membranes 425215437 O42.919 - at 31 weeks Gestation period, 25 weeks 70823036 Z3A.25 [id number] JW GALAN MD [facility] [address],[place] [address] 05/27/2024 09:46:14 05/27/2024 10:35:50 Past history of gestational hypertension 511810969 Z87.59 - hx of gHTN vs preeclamps ia- discussed ldASA starting at 12 weeks pr emature rupture of membranes 534615791 O42.919 - at 31 weeks previously Gestation period, 29 weeks 23766732 Z3A.29 [id number] JW GALAN MD [facility] [address],[place] [address] 06/08/2024 14:47:26 06/15/2024 03:05:04 Past history of gestational hypertension 000779819 Z87.59 - hx of gHTN vs preeclamps ia- discussed ldASA starting at 12 weeks Past pregn bren history of premature rupture of membranes 6213003156 80339 Z87.59 - at 31 weeks Gestation period, 31 weeks 54265480 Z3A.31 [id number] Modesto Ying MD [facility] [address],[place] [address] 06/22/2024 15:19:14 06/22/2024 16:03:39 Medical examination for suspected condition 968117635 Z03.74 Z3A.32 [id number] JW GALAN MD [facility] [address],[place] [address] 06/22/2024 15:19:34 06/23/2024 04:57:16 Breech presentation 5291121 O32.1XX9 - aislinn breech at 32 weeks- repeat growth/pre sentation at 36 weeks Gestation period, 32 weeks 3093031 Z3A.32 [id number] JW GALAN MD [facility] [address],[place] [address] 07/06/2024 12:38:13 07/06/2024 14:13:55 Past history of gestational hypertension 005931797 Z87.59 - hx of gHTN vs preeclamps ia- discussed ldASA starting at 12 weeks Gestation period, 34 weeks 84311993 Z3A.34 [id number] JW GALAN MD [facility] [address],[place] [address] 07/26/2024 10:03:42 07/26/2024 11:02:01 Pruritic rash 66910815 L28.2 - likely 07/03 irritation for c section jeanie adhesive- will send steroid cream care 46846531 8 Z39.2 S/p c section on . Incision well-heale d without any signs of infection2 . Family planning options discussed. Unsure, considerin g tubal ligation. She will continue to abstain from intercours e until her 6wk visit.3. RTC 4wks for post-partu m check [id number] Samina Martinez CNM [facility] [address],[place] [address] 08/23/2024 09:59:55 08/23/2024 10:51:29 care 247020810 Z39.2 plan pp tubal ligation with dr. shelby/phyllis here for [facility] Health Concerns Section Related Observation LastModified by Organization Detai ls LastModified Time None Recorded Concern Status LastModified by Organization Details LastModified Time None Recorded Advance Directives Directive None Recorded Payers Encounter Date Sequence Insurance Name Policy Number Policy Garcia Covered Member ID Garcia Member ID Guarantor Name 06/22/2024 1 [place] [id number] Charles Ball [id number] Jessica Ball 06/22/2024 1 [place] [id number] Charles Ball [id number] Jessica Ball 07/06/2024 1 [place] [id number] Charles Ball [id number] Jessica Ball 07/26/2024 1 [place] [id number] Charles Ball [id number] Jessica Ball 08/23/2024 1 [place] [id number] Charles Ball [id number] Jessica Ball Notes Date Note Type Note Provider Name and Address Organization Details Recorded Time 07/26/2024 text/html s/p C/S 07/21. Franki pedro presents today for her incision check. Her postop course has been unremarkable. She does report a red itching rash over her abdomen, in the area of the c section drape. She has minimal spotting, denies pain, fever or any other concerning symptoms. She is formula feeding and her baby is doing well. Her mood is good. JW GALAN MD [address], [place], [address], [place] [facility] 07/26/2024 10:57:21 08/23/2024 text/html VisitReported bypatient.Quality:p rimary C/S Context:complicatio ns of : none; complications: none; feeding choice: bottle; good support from partner/family; resumed menstrual bleeding no Associated Symptoms:no abnormal bleeding; no vaginal discharge; no pelvic pain; laceration well healed; no constipation Contraception Plan:permanent sterilizationNotes: wants tuballigation Jo mahan, [facility] 08/23/2024 18:52:46 OBGyn Episode Ob Episode Information Episode Created Date Number of Fetuses Patient Bloodtype Patient rh Status Prepregnancy Weight lbs Domestic Partner Domestic Partner Phone Father Name Music Education Adjunct Professor Status 01/04/20 24 1 CLOSED Fetus Data First Name Last Name Admitted to NICU Weight (g) Sex Living Outcome Pediatric Complications Fetus ID Race Codes Race Delivery Type 1672.39 3704 M Prematur [place] [id number] Vaginal Delivery Kvng Calculation Initial Kvng Date [...] Complications Tubal Sterilization Discharge Date Comments 3 31 31 wks pre e vs GHTN Discharge Information Feeding Method Contraceptive Method Maternal HG B and HCT Levels Ob Episode Information Episode Created Date Number of Fetuses Patient Bloodtype Patient rh Status Prepregnancy Weight lbs Domestic Partner Domestic Partner Phone Father Name Music Education Adjunct Professor Status 02/09/20 24 1 O Positive 154 CLOSED Fetus Data First Name Last Name Admitted to NICU Weight (g) Sex Living Outcome Pediatric Complications Fetus ID Race Codes Race Delivery Type false 2579.80 45 F true Prematur e [id number] Primary Problems Problem Notes NIPT NL XX Problem Name Start Date End Date Resolution Snomed Code Not e Past history of gestational hypertension 514920256 delivery at 31 weeks; preE vs gHTN premature rupture of membranes 940810499 hx of i n G1, delivery at [...] Date Ultra Sound Latest Days Gestation 0 08/13/19 25 0 Pre-rodolfo Flowsheet Flowsheet Date 02/09/2024 Lynch Score Blood Edema Fundus Height Fundus Units Glucose Ketones Leukocytes Nitrite Labor Signs Protein Cervic Dilation Cervic Effacement Cervic Station none none trace Type Weight in lbs Pre/Post Dialysis Refused Weight 155.728794126454 BP Diastolic BP Location Tested BP Systolic [...] Weight in lbs Pre/Post Dialysis Refused Weight 156.756944662022 BP Diastolic BP Location Tested BP Systolic [...] Type Weight in lbs Pre/Post Dialysis Refused 160.772394359381 BP Diastolic BP Location Tested BP Systolic [...] Weight in lbs Pre/Post Dialysis Refused Weight 164.984528208880 BP Diastolic BP Location Tested BP Systolic [...] Type Weight in lbs Pre/Post Dialysis Refused 168.655753666858 BP Diastolic BP Location Tested BP Systolic [...] Type Weight in lbs Pre/Post Dialysis Refused 174.527462594941 BP Diastolic BP Location Tested BP Systolic [...] Weight in lbs Pre/Post Dialysis Refused Weight 177.978682434912 BP Diastolic BP Location Tested BP Systolic BP Type 68 L arm 106 sitting Fetus Heart Rate Present A Present Fetus Movement A Yes Comments Patient c/o of [place] Gamino . Good movement. No LOF or [...] Weight in lbs Pre/Post Dialysis Refused Weight 180.315132282975 BP Diastolic BP Location Tested BP Systolic [...] swab for next visit. RTC 2 weeks. Flowsheet Date 07/26/2024 Lynch Score Blood Edema Fundus Height Fundus Units Glucose Ketones Leukocytes Nitrite Labor Signs Protein Cervic Dilation Cervic Effacement Cervic Station Type Weight in lbs Pre/Post Dialysis Refused Weight 157.849920859954 BP Diastolic BP Location Tested BP Systolic BP Type 82 L arm 120 sitting Fetus Heart Rate Present Fetus Movement Comments Menstrual History Last Menstrual Date Menses Monthly On Bcp Conception Prior Menses Frequency Hcg Plus Date Menarche Onset Age 0611/06/2023 false Delivery Information Delivery Date Delivery Type Labor Anesthesia Weeks Gestation Incision Type Labor Labor Length Hrs Delivered By Post Complications Tubal Sterilization Discharge Date Comments 5 [facility] 35.6 Low Transvers e true Modesto Ying MD None false Discharge Information Feeding Method Contraceptive Method Maternal HG B and HCT Levels
--- OUTSIDE RECORDS SUMMARY | 2024-10-04 15:29 | XMS_ITS | Clinical Summary ---
Author Organization [facility] Address [address] [place] [address] Care Team Providers Care Equipment Coordinator Name Role Phone Lala Riggs PA-C Primary Care Provider [phone] Lala Riggs PA-C Unavailable [phone] Marck Bonner MD Unavailable [phone] Haylie Yun LCPC Unavailable Unavailable Source Comments [facility],non-owned Affiliates and Associated Physician Practices is amultiple site organization consisting of ambulatory clinics and hospital sitesin [place], [place], [place] and [place]. This disclosure is being madepursuant to the Care Everywhere program and may not contain all information available regarding this patient. Last updated 18.[facility] Allergies No known active allergies Medications * This document contains information received from the source organization and may not represent a complete record from that organization. * Be aware that medications may not be up to date on this document. Alwaysverify current medications with the patient. calcium carbonate (Tums) 500 MG chew tablet Take 1 (one) tablet by mouth daily with food 03/06/20 22 Active Additional Information Patient taking differently:1 tablet Oral DAILY WITH FOOD,Takes PRN, Reported on 09/12/2024 omeprazole (PriLOSEC) 20 MG capsule Take 1 (one) capsule by mouth daily before breakfast Active Other OTC Iron 325mg takes one tablet daily Active Other OTC Amino acids takes one tablet daily Active Multiple Vitamins-Minerals (Womens Multi Vitamin & Mineral) TABS Take by mouth once daily Active escitalopram (Lexapro) 20 MG tabletIndications :Personality disorder (HCC),Anxiety with depression Take 1 (one) tablet by mouth once daily 30 tablet 2 09/13/19 25 Active lisdexamfetamine (Vyvanse) 30 MG capsuleIndication s:Attention Deficit Hyperactivity Disorder Take 1 (one) capsule by mouth every morning Reasons: Attention Deficit Hyperactivity Disorder 30 capsule 09/13/19 25 Active Vit-Fe Fumarate-FA ( vitamin) 28-0.8 MG tablet Take 1 (one) tablet by mouth once daily 025 Discontin ued(List Clean-Up) aspirin (Aspirin) 81 MG chew tablet Take 1 (one) tablet by mouth once daily 025 Discontin ued(List Clean-Up) Other OTC stool softener as needed 025 Discontin ued(List Clean-Up) escitalopram (Lexapro) 20 MG tabletIndications :Personality disorder (HCC),Anxiety with depression Take 1 (one) tablet by mouth once daily 30 tablet 08/09/19 25 025 Discontin ued(Reord er) Active Problems Patient Care Coordination No te Formatting of this note migh t be different from the original. [facility] [place] PCP Change Request form faxed 05/12/18 Problem [...] Atypical chest pain 01/24/2014 05/14/20 16 Encounters * This document contains information received from the source organization and may not represent a complete record from that organization. Date Type Department Care Team Description 09/12/2024 11:00 AM CDT Video Visit [facility] [address] [place] [address] Aron Allred MD Wennerstrom, Amber L, DISTRICT CAPTAIN-ROLLER INSPECTOR AND MENDER Anxiety with depression ; Personality disorder (HCC); ADHD (attention deficit hyperactivity disorder), combined type 08/08/2024 Refill [facility] Behavioral Health [address] [place] [phone] Chelsie Monet, DISTRICT CAPTAIN-ROLLER INSPECTOR AND MENDER MEDICATION REFILL from Last 3 Months Immunizations Immunization Administration Dates Next Due Covid Moderna primary monova lent 12+ yr 0.5mL 07/10/2020,06/12/2020 DTP/HIB 07/10/1993, 3,1992,08/08 DTaP VACCINE IM (6wk-6yrs) 12/06/1997,,1992,10/10,1992 HEP B VACCINE, PED/ADOL 04/16/1993,02/11/1993, HIB-PRP-T 4 DOSE 07/10/1993, 3,1992,08/08 Human Papilloma Virus Humberto valent Vaccine 07/18/2009,03/14/2009,01/10/2009 INFLUENZA VACCINE 03/15/2019, 8,04/01/2017,03/15,04/01/2015,04/01/2014 INFLUENZA VACCINE, QUADR. (F LUZONE; FLULAVAL; FLUARIX; AFLURIA QUADRIVALENT; 6MO+), 0.5 ML (IIV4) 03/21/2020 MENINGOCOCAL MENINGITIS 12/26/2009 MENINGOCOCCAL ACWY (MCV4P) VAC IM 12/26/2009 MMR 09/10/2022(Deferred: Patient Condition - immune),12/06/1997,07/10/1993 [...] Recorded Patient Health Questionnaire-2 Score 0 12/10/2023 [facility] of Occupat ional Health - Occupational Stress [...] place to sleep or slept in a correction (including now)? No 09/08/2022 [place] Depression Scale Answer Date Recorded [place] Depression Scale Total 10 09/17/2022 The thought [...] Comments Blood Pressure 103/62 05/20/2024 1:27 PM DELI ASSOCIATE Pulse 100 05/20/2024 1:27 PM DELI ASSOCIATE Temperature 36.9 C (98.5 F) 12/10/2023 1:20 PM CDT Respiratory Rate 18 09/11/2022 9:55 AM CDT Oxygen Saturation 100% 12/10/2023 1:20 PM CDT Inhaled Oxygen Concentration - - Weight 76.4 kg (168 lb 6.4 oz) 05/20/2024 1:27 P M DELI ASSOCIATE Height 154.2 cm (5' 0.71 ) 05/20/2024 1:27 PM CS T Body Mass Index 32.12 05/20/2024 1:27 PM DELI ASSOCIATE Plan of Treatment Upcoming Encounters Date Type Department Care Team (Late st Contact Info) Description 10/25/2024 4:00 PM CDT Office Visit [facility] [address] [place] [phone] Chelsie Monet, DISTRICT CAPTAIN-ROLLER INSPECTOR AND MENDER [address] [place], [place] [address] Health Maintenance Due Date Last Done Comments HEPATITIS C SCREENING 03/26/2010 DTAP/TDAP/TD VACCINES (7 - Td or Tdap) 11/30/2016 11/30/2006, 12/06/1997, 07/10/1993, Additional history exists COVID-19 VACCINE ( season) 2024 07/10/2020, 06/12/2020 DEPRESSION SCREENING 06/01/2024 09/17/2023, 08/27/2023, 08/25/2023, Additional history exists INFLUENZA VACCINE (Season Ended) 2025 03/21/2020, 03/15/2019, 04/01/2018, Additional history exists PAP with HPV 07/07/2028 07/07/2023, 11/2019, 08/18/2016, Additional history exists ZOSTER VACCINE (1 of 2) 2042 HEPATITIS B VACCINE Completed 04/16/1993, 02/11/1993, 1992 HIB VACCINE Completed 07/10/1993, 01/1994, 1992, Additional history exists HPV VACCINE Completed 07/18/2009, 03/01, 01/10/2009 MENINGOCOCCAL GROUPS A/C/Y/W VACCINE Completed 12/26/2009, 12/26/2009 HIV SCREENING Completed 05/27/2024, 02/09/2024 MENINGOCOCCAL (Group B) VACCINE SHARED DECISION-MAKING Aged Out No longer eligible based on patient's age to complete this topic PNEUMOCOCCAL VACCINE Aged Out No long er eligible based on patient's age to complete this topic Procedures Procedure Name Priority Date/Time Associated Diagnosis Comments PAP IG LB +HPV APTIMA REFLEX 16,18/45 Routine 07/07/2023 12:15 PM DELI ASSOCIATE Well woman exam with routine gynecological exam Encounter for surveillance of contraceptive pills from Last 3 Months or Most Recently Relevant to Health Maintenance Results * PAP IG LB +HPV APTIMA REFLEX 16,18/45 (07/07/2023 12:15 PM DELI ASSOCIATE) Diagnosis [facility] INSURANCE BILL Comment:NEGATIVE FOR INTRAEP ITHELIAL LESION OR MALIGNANCY. Specimen Adequacy [facility] INSURANCE BILL Comment: Satisfactory for evaluation. Endocervical and/or squamous metaplastic cells (endocervical component) are present. Clinician Provided ICD10 [facility] INSURANCE BILL Comment: Z01.419 Z30.41 Performed by [facility] INSURANCE BILL Comment:Sue Pate Cyto technologist (ASCP) [...] types (16,18,31,33,35,39,45,51,52,56,58,59,66,68) without differentiation. HPV Genotype Reflexed [facility] INSURANCE BILL Comment:Criteria not met, HP V Genotype not performed. PART OF UTERINE CERVIX / Unknown 07/07/2023 12:15 PM DELI ASSOCIATE 07/07/2023 Narrative [facility] INSURANCE BILL - 07/10/2023 1:10 PM DELI ASSOCIATE LMP / Prev Treat...JXL=[id number];None Other..............Oral Contraceptives No. of containers..01 ThinPrep Vial Resulting Agency Comment Lab Testing performed at: [address] [id number] Amaya Oliver DISTRICT CAPTAIN-ROLLER INSPECTOR AND MENDER LAB - PATHOLOGY/CYTOLOGY ORD ERABLES Final Result [facility] INSURANCE BILL [address] [place] [address] from Last 3 Months or Most Recently Relevant to Health Maintenance Insurance MEDICAID - [place] [facility] Address[facility] [address] [place] [address] MEDICAID - OUT OF [facility] [employer] [employer] LIABILITY [facility] Advance Directives * Full Code (Latest Code Status on File) Date Activated Date Inactivated Comments 09/08/2022 3:54 PM 09/11/2022 4:12 PM Care Teams Equipment Coordinator Relationship Specialty Start Date End Date Lala Riggs PA-C [address] [place] [phone] PCP - General Physician Search Engine Marketing Strategist 09/08/22 Lala Riggs PA-C [address] [place] [phone] Physician Search Engine Marketing Strategist 09/08/22 Marck Bonner MD [address] [address] Gastroenterology 02/09/15 Haylie Yun LCPC Behavioral Health Therapist 07/30/23
[2024-10-04 15:59] LABS: Hematocrit 41.9 % (37.0-47.0); Hemoglobin 13.1 g/dL (12.0-15.0)
== END 2024-10-04 15:18 | disposition home or self-care (01) ==
LOC: ANHSURGERY 15:25
PROVIDERS: Anesthesiology; Visit Provider Obstetrics & Gynecology
DX: Z01.818 Encounter for other preprocedural examination (principal); Z86.2 Personal history of diseases of the blood and blood-forming organs and certain disorders involving the immune mechanism
CPT/HCPCS: 36415; 85014; 85018

== ENCOUNTER 2024-10-11 00:53 | Day surgery (SDC) | payer BC, SELFPAY ==
[2024-09-30 08:17] VITALS: BMI 33.3
--- NOTE | 2024-09-30 08:28 | PC.NURSE ---
Report to the Outpatient Waiting Room, entrance under the green pavilion located off [facility], at time _0800_ on date _[id number]_. Planned Procedure Time: _1000_.? Time changes happen often and if your time is changed the preop area will call you the afternoon before. - You and your visitor will be asked to self-screen and do not enter if you have any COVID symptoms. Please call surgeon if you need to reschedule. - A mask is optional within the hospital at this time. Patients may have clear liquids (water, carbonated beverages, clear teas, apple juice) until 3 hours prior to surgery with a maximum of 20 ounces. - No food from midnight until time of surgery and no smoking, or chewing tobacco (or any form of nicotine). No chewing gum, candy or mints. Take only the following medications with a SIP of water on the morning of surgery: __Escitalopram___ DO NOT STOP ANY OF YOUR OTHER PRESCRIPTION MEDICATIONS PRIOR TO SURGERY EXCEPT THE FOLLOWING Hold all vitamins and supplements for 3 days per anesthesiologist. Medications to discontinue per physician Date to take last dose Please no make-up, nail sammarinese, hairspray, perfume, deodorant, or body powder the day of surgery.? No jewelry (including any body piercings) or valuables the day of surgery, leave them at home.? Please take a shower or bath the night before, or the morning of, surgery with an antibacterial soap.? Wear comfortable, loose fitting clothing. - Jewelry must be removed prior to entering the operating room.? Rings and piercings that are not removed may be cut off. - The hospital will not accept responsibility for valuables.? - Please leave all valuables, including medications, at home the day of surgery. If you are going home after surgery, a licensed concrete pile driver operator must drive you home.? - NO public transportation without another adult if you receive anesthesia. - We recommend that an adult stay with you for 24 hours following discharge. - We also recommend that you do not drive, make important decision, drink alcoholic beverages, or take any drugs that were not prescribed by your health care provider for at least 24 hours after your discharge time. Follow any additional instructions given to you from your surgeon. Telephone instructions given to __Haley__and asked if any additional questions and then verbalized understanding. Patient advised to call surgeon office or pre surgery nurse liaison [phone] if any additional questions.
[2024-10-11] VITALS (7 sets, daily range): BP systolic 99–113; BP diastolic 59–84; PULSE 73–98; RESP 14–21; TEMP 35.8–36.3; O2SAT 97–100
--- OUTSIDE RECORDS SUMMARY | 2024-10-11 00:56 | XMS_ITS | Encounter Summary ---
Author Organization [facility] Address [address] [place] [address] Care Team Providers Care Prompt Care Rn Name Role Phone Lala Riggs PA-C Primary Care Provider [phone] Lala Riggs PA-C Unavailable [phone] Marck Bonner MD Unavailable [phone] Haylie Ynu LCPC Unavailable Unavailable Reason for Visit * Reason Onset Date Comments MEDICATION REFILL 09/25/2023 Encounter Details Date Type Department Care Team (Late st Contact Info) Description 09/25/2023 Refill [facility]al [facility] [address] [place] [phone] Chelsie Monet, EARLY HEAD START DIRECTOR-SENIOR INTERACTIVE DEVELOPER [address] [place], [place] [address] MEDICATION REFILL Social History Tobacco Use Types [...] Recorded Patient Health Questionnaire-2 Score 0 08/25/2023 [facility] of Occupat ional Health - Occupational Stress [...] place to sleep or slept in a penitentiary (including now)? No 09/08/2022 [place] Depression Scale Answer Date Recorded [place] Depression Scale Total 10 09/17/2022 The thought [...] Description 10/25/2024 4:00 PM CDT Office Visit [facility] Behavioral Health [address] [place] [address] Chelsie Monet, EARLY HEAD START DIRECTOR-SENIOR INTERACTIVE DEVELOPER [address] [place], [place] [address] documented as of this encounter Visit Diagnoses Diagnosis Personality disorder (HCC) Unspecified personality disorder Anxiety with depression documented in this encounter Care Teams Prompt Care Rn Relationship Specialty Start Date End Date Lala Riggs PA-C [address] [place] [phone] PCP - General Physician Oil Change Technician 09/08/22 Lala Riggs PA-C [address] [place] [address] Physician Oil Change Technician 09/08/22 Marck Bonner MD [address] [address] Gastroenterology 02/09/15 Haylie Yun LC[facility] Behavioral Health Therapist 07/30/23 documented as of this encounter
--- OUTSIDE RECORDS SUMMARY | 2024-10-11 00:56 | XMS_ITS | Data Portability ---
Author Organization [facility] Address [address] [place] [address] [place] [address] Care Team Providers Care Analytics Lead Name Role Phone JOSEFINA LAWLER Primary Care Provider Assessment No assessment recorded. Plan of Treatment [...] US, obstetric , follow-up 2024 025 [email or web address] [place], [facility] [address], [place], [address], 06/22/2024 21:50:37 Medication Orders triamcino lone acetonide 0.5 % topical cream 2024 025 [facility] [place], [address], 08/23/2024 10:19:48 Patient TargetsNo targets recorded. Patient InstructionsNo instructions recorded. Reason for Referral None Reported. Results Created Date Observation Date Name Description Value Unit Range Abnormal Flag Note LastModifiedBy Organization Detail LastModifiedTime 05/27/20 24 05/27/2024 HEMOG LOBIN (HGB) HGB 11.8 g/dL (based on docume nted legal sex) 11.6-1 5.4 Not Available [facility] (Lab) [address], [place], [address], 05/28/2024 13:49:05 05/27/20 24 05/27/2024 HEMAT OCRIT (HCT) HCT 37.0 % (based on docume nted legal sex) 34.0-4 5.0 Not Available [facility] (Lab) [address], [place], [address], 05/28/2024 13:49:06 05/27/20 24 05/27/2024 GTT - GESTA MUNA L SCREE N, ACOG OB glucose, 1 hour screen 112 mg/dL 70-135 Not Available [facility] (Lab) [address], [place], [address], 05/28/2024 13:49:06 05/27/20 24 05/27/2024 HIV 1/2 ANTIG EN/AN TIBOD Y, REFLE X CONFI RMATI ON HIV antigen/anti body Nonrea ctive nonrea ctive HIV-1 antig en and HIV-1 /HIV- 2 antib odies were not detec jerzy. No labor atory evide nce of HIV infec tion. Not Available [facility] (Lab) [address], [place], [address], 05/28/2024 13:49:06 05/27/20 24 05/27/2024 RPR SCREE N, REFLE X TITER /CONF IRMAT ION RPR screen Nonrea ctive nonrea ctive Not Available [facility] (Lab) [address], [place], [address], 05/28/2024 13:49:07 06/22/19 25 06/22/2024 US, nicole lewis w-up No observ ation record ed. [facility] [address], [place], [address], 06/22/2024 18:45:55 06/22/19 25 06/22/2024 US, obste tric, follo w-up No observ ation record ed. [email or web address], [place], [address], 06/22/2024 21:47:09 Result Notes None recorded. Problems Name Problem SNOMED Code Status Onset Date Resolution Date Notes Provider Name and Address Organization Details Recorded Time Pregnanc y 78990260 Completed 202307/26/2024 JW GALAN MD [address], [place], [address], [facility] 5 10:55:20 Past pregnanc y history of gestatio nal hyperten gloria 126539393 Completed delivery at 31 weeks; preE vs gHTN Jo Chiu [facility] 5 19:06:58 prematur e rupture of membrane s 205993079 Completed hx of in G1, delivery at 31 weeks Jo Chiu [facility] 5 19:06:58 prematur e rupture of membrane s 283850760 Active hx of in G1, delivery at 31 weeks Jo Chiu [facility] 5 19:06:58 Past pregnanc y history of gestatio nal hyperten gloria 718359484 Active delivery at 31 weeks; preE vs gHTN Jo Chiu [facility] 5 19:06:58 Problem Notes None recorded. Procedures Surgical History Date Name Laterality Status Provider Name and Address Organization Details Recorded Time 5 section completed Jo Chiu [facility] 08/23/2024 19:10:17 4 Date of Last Pap Smear completed Lucero Ayala [facility] 01/04/2024 14:58:25 0 extraction of wisdom tooth completed Jo Chiu [facility] 08/23/2024 19:10:32 6 Oral surgery procedure completed [facility] 08/23/2024 19:11:27 4 Oral surgery procedure completed [facility] 08/23/2024 19:11:22 2 Oral surgery procedure completed [facility] 08/23/2024 19:11:12 0 Oral surgery procedure completed [facility] 08/23/2024 19:11:03 Imaging Results Imaging Date Name Status LastModified by Organiz ation Details LastModified Time 06/22/2024 US, obstetric, follow-up completed [facility] [address], [place], [address], 06/22/2024 18:45:55 06/22/2024 US, obstetric, follow-up completed [email or web address], [place], [address], 06/22/2024 21:47:09 Procedure Notes None recorded. Medical [...] 1 CAPSULE BY MOUTH IN THE MORNING active Not Available Not Available No t Available Vyvanse 40 mg capsule TAKE 1 [...] Updated DateTime 06/22/2024 152.4 cm 34.6 kg/m2 84825.85 g 106 mm[Hg] 68 mm[Hg] Pina Reeves [facility] 16:03:09 Date Recorded Body height Body mass index (BMI) Body weight Systolic blood pressure Diastolic blood pressure Provider Name and Address Organization Details Last Updated DateTime 07/06/2024 152.4 cm 35.2 kg/m2 64681.63 g 125 mm[Hg] 86 mm[Hg] Pina Reeves [facility] 12:51:50 Date Recorded Body height Body mass index (BMI) Body weight Systolic blood pressure Diastolic blood pressure Provider Name and Address Organization Details Last Updated DateTime 07/26/2024 152.4 cm 30.7 kg/m2 96888 g 120 mm[Hg] 82 mm[Hg] Pina Willisen [facility] 10:26:51 Date Recorded Body height Body mass index (BMI) Body weight Systolic blood pressure Diastolic blood pressure Provider Name and Address Organization Details Last Updated DateTime 08/23/2024 152.4 cm 31.2 kg/m2 61634.78 g 108 mm[Hg] 77 mm[Hg] Jo Apple [facility] 10:19:29 Social History Question Answer Notes LastModified by Organizat ion Details LastModified Time Are You Blind Or Do You Have Difficulty Seeing? Yes Information n ot available 01/04/2024 What Is Your Level Of Caffeine Consumption? Occasional Information not available 01/04/2024 How Much Tobacco Do You Chew? None Information not available 01/04/2024 In The 14 Days Before Symptom Onset, Have You Had Close Contact With A Laboratory-confirm ed COVID-19 While That Case Was Ill? No Information n ot available 01/04/2024 In The 14 Days Before [...] Of Diet Are You Following? REGULAR Information n ot available 01/04/2024 What Is The Highest Grade Or Level Of School You Have Completed Or The Highest Degree You Have Received? [id number] Information not available 01/04/2024 Are There Any Guns Present In Your Home? No Information not available 01/04/2024 Do You Use Protection During Sex? No Information not available 01/04/2024 Do You Use Your Seat Belt Or Car Seat Routinely? Yes Information not available 01/04/2024 Are You Sexually Active? Yes [email or web address] Information not available 07/26/2024 Do You Have [...] Organizat ion Details LastModified Time Do you use any illicit or recreational drugs? No Information not available 01/04/2024 What is your level of alcohol consumption? None Information not available 01/04/2024 Do you have difficulty walking or climbing stairs? No [email or web address] Information not available 07/26/2024 Are you able to walk? YESWOREST Information not available 01/04/2024 Are you able to care for yourself? 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 No [email or web address] Information not available 07/26/2024 What is your exercise level? Moderate Information not available 01/04/2024 Mental Status Question Answer Note LastModified by Organization D etails LastModified Time Do you feel stressed (tense, restless, nervous, or anxious, or unable to sleep at night)? [id number] Information not available 01/04/2024 Family History Relationship Description Onset Age of [...] available 2023 14:44:40 Medical History Condition Response Allergies (Food, seasonal, environmental ) N Other N Drug/Latex Allergies/Reactions N Breast Cancer N Blood Transfusion N Lung Disease N Dermatologic Disorders N Defects or Inherited Disease N Breast Problem N Gestational Diabetes N Hematologic disorders N Anesthesia Complications N History of STI N Deep Vein Thrombosis N Polycystic ovary syndrome N Anxiety Disorder Y Autoimmune disease N Arthritis N Polyps N Infertility N History of abnormal pap N Acid Reflux (GERD) Y Cancer N Varicosities N Stroke N Neurologic/Epilepsy N Endometriosis N High Cholesterol N Headaches Y Fibromyalgia N Kidney Disease N Heart Problems N Thyroid Problems N Kidney or Bladder Problems N GI Problems N Eating Disorder N Anemia N Art (IVF or FET) N Psychiatric Illness N Ovarian Cancer N Diabetes N Pulmonary (TB, Asthma) N Hepatitis/Liver Disease N No Past Medical History N Eczema N Urinary Tract Infection N Abuse/Domestic Violence N Asthma N Trauma/Violence N Depression/ depression Y Heart Disease N Pre-Eclampsia Y Hypertension Y Osteoporosis N Thrombophilias N Gynecological History Statement/Question Response Date of [...] Code Diagnosis ICD10 Code Diagnosis Note [id number] MD Priscila ROBERTSON [address] [address] 01/04/2024 13:59:16 01/04/2024 14:27:46 [id number] MD Priscila ROBERTSON [address],[place] [address] 01/04/2024 13:59:47 01/04/2024 17:42:02 test positive 909120393 Z32.01 1. Exam today within normal limits.2. [...] Past pregn bren history of gestational hypertension 078514300 Z87.59 - hx of gHTN vs preeclamps ia- discussed ldASA starting at 12 weeks Past pregn bren history of premature rupture of membranes 4087310176 48185 Z87.59 - at 31 weeks [id number] Modesto Ying MD [place] [address],[place] [address] 02/09/2024 09:39:19 02/09/2024 13:35:29 screening 306506235 Z36.87 Z3A.13 [id number] JW GALAN MD [place] [address],[place] [address] 02/09/2024 09:46:26 02/10/2024 02:21:09 screening 450125300 Z36.89 Routine an tenatal care 324373794 Z34.90 Past pregn bren history of gestational hypertension 096817340 Z87.59 - hx of gHTN vs preeclamps ia- discussed ldASA starting at 12 weeks pr emature rupture of membranes 932550585 O42.919 Gestation period, 13 weeks 33701655 Z3A.13 [id number] Modesto Ying MD [place] [address] [place] [address] 03/08/2024 10:54:30 03/08/2024 11:51:07 [id number] Modesto Ying MD [place] [address] [place] [address] 04/05/2024 09:51:19 04/05/2024 10:58:04 Gestation period, 21 weeks 75596502 Z3A.21 [id number] JW GALAN MD [place] [address],[place] [address] 04/05/2024 09:51:39 04/08/2024 12:13:26 Routine care 065009320 Z34.90 [id number] JW GALAN MD [place] [address],[place] [address] 05/04/2024 09:57:31 05/04/2024 10:56:42 Past history of gestational hypertension 038107755 Z87.59 - hx of gHTN vs preeclamps ia- discussed ldASA starting at 12 weeks pr emature rupture of membranes 224795232 O42.919 - at 31 weeks Gestation period, 25 weeks 14853487 Z3A.25 [id number] JW GALAN MD [place] [address],[place] [address] 05/27/2024 09:46:14 05/27/2024 10:35:50 Past history of gestational hypertension 212312560 Z87.59 - hx of gHTN vs preeclamps ia- discussed ldASA starting at 12 weeks pr emature rupture of membranes 402491319 O42.919 - at 31 weeks previously Gestation period, 29 weeks 61924172 Z3A.29 [id number] JW GALAN MD [place] [address],[place] [address] 06/08/2024 14:47:26 06/15/2024 03:05:04 Past history of gestational hypertension 398948586 Z87.59 - hx of gHTN vs preeclamps ia- discussed ldASA starting at 12 weeks Past pregn bren history of premature rupture of membranes 3478899112 22637 Z87.59 - at 31 weeks Gestation period, 31 weeks 07708691 Z3A.31 [id number] Modesto Ying MD [place] [address],[place] [address] 06/22/2024 15:19:14 06/22/2024 16:03:39 Medical examination for suspected condition 121200231 Z03.74 Z3A.32 [id number] JW GALAN MD [place] [address],[place] [address] 06/22/2024 15:19:34 06/23/2024 04:57:16 Breech presentation 9086953 O32.1XX9 - aislinn breech at 32 weeks- repeat growth/pre sentation at 36 weeks Gestation period, 32 weeks 7903525 Z3A.32 [id number] JW GALAN MD [place] [address],[place] [address] 07/06/2024 12:38:13 07/06/2024 14:13:55 Past history of gestational hypertension 138179043 Z87.59 - hx of gHTN vs preeclamps ia- discussed ldASA starting at 12 weeks Gestation period, 34 weeks 95390236 Z3A.34 [id number] JW GALAN MD [place] [address],[place] [address] 07/26/2024 10:03:42 07/26/2024 11:02:01 Pruritic rash 25509934 L28.2 - likely 07/03 irritation for c section jeanie adhesive- will send steroid cream care 13060070 8 Z39.2 S/p c section on . Incision well-heale d without any signs of infection2 . Family planning options discussed. Unsure, considerin g tubal ligation. She will continue to abstain from intercours e until her 6wk visit.3. RTC 4wks for post-partu m check [id number] Samina Martinez CNM [place] [address],[place] [address] 08/23/2024 09:59:55 08/23/2024 10:51:29 care 487179021 Z39.2 plan pp tubal ligation with dr. shelby/u here for wwe Health Concerns Section Related Observation LastModified by Organization Detai ls LastModified Time None Recorded Concern Status LastModified by Organization Details LastModified Time None Recorded Advance Directives Directive None Recorded Payers Encounter Date Sequence Insurance Name Policy Number Policy Garcia Covered Member ID Garcia Member ID Guarantor Name 06/22/2024 1 [place] [id number] Charles Ball [id number] Jessica Ball 06/22/2024 1 [place] [id number] Charles Ball [id number] Jessica Ball 07/06/2024 1 [place] [id number] Charles Ball [id number] Jessica [place] 07/26/2024 1 [place] [id number] Charles Ball [id number] Jessica Ball 08/23/2024 1 [place] [id number] Charles Ball [id number] Jessica Ball Notes Date Note Type [...] good. JW GALAN MD [address], [place], [address], [facility] 07/26/2024 10:57:21 08/23/2024 text/html VisitReported bypatient.Quality:p rimary C/S Context:complicatio ns of : none; complications: none; feeding choice: bottle; good support from partner/family; resumed menstrual bleeding no Associated Symptoms:no abnormal bleeding; no vaginal discharge; no pelvic pain; laceration well healed; no constipation Contraception Plan:permanent sterilizationNotes: wants tuballigation Jo mahan, [facility] 08/23/2024 18:52:46 OBGyn Episode Ob Episode Information Episode Created Date Number of Fetuses Patient Bloodtype Patient rh Status Prepregnancy Weight lbs Domestic Partner Domestic Partner Phone Father Name Principal Java Developer Status 01/04/20 24 1 CLOSED Fetus Data First Name Last Name Admitted to NICU Weight (g) Sex Living Outcome Pediatric Complications Fetus ID Race Codes Race Delivery Type 1672.39 3704 M Prematur e 80776 Vaginal Delivery Kvng Calculation Initial Kvng Date [...] Domestic Partner Domestic Partner Phone Father Name Principal Java Developer Status 02/09/20 24 1 O Positive 154 CLOSED Fetus Data First Name Last Name Admitted to NICU Weight (g) Sex Living Outcome Pediatric Complications Fetus ID Race Codes Race Delivery Type false 2579.80 47 F true Prematur e 93135 Primary Problems Problem Notes NIPT NL XX Problem Name Start Date End Date Resolution Snomed Code Not e Past history of gestational hypertension 909226791 delivery at 31 weeks; preE vs gHTN premature rupture of membranes 936055777 hx of i n G1, delivery at [...] Weight in lbs Pre/Post Dialysis Refused Weight 155.862134863907 BP Diastolic BP Location Tested BP Systolic [...] Weight in lbs Pre/Post Dialysis Refused Weight 156.486428132132 BP Diastolic BP Location Tested BP Systolic [...] Type Weight in lbs Pre/Post Dialysis Refused 160.373575497120 BP Diastolic BP Location Tested BP Systolic [...] Weight in lbs Pre/Post Dialysis Refused Weight 164.276884999485 BP Diastolic BP Location Tested BP Systolic [...] Type Weight in lbs Pre/Post Dialysis Refused 168.938908765367 BP Diastolic BP Location Tested BP Systolic [...] Type Weight in lbs Pre/Post Dialysis Refused 174.627253546980 BP Diastolic BP Location Tested BP Systolic [...] Weight in lbs Pre/Post Dialysis Refused Weight 177.507501439252 BP Diastolic BP Location Tested BP Systolic [...] Weight in lbs Pre/Post Dialysis Refused Weight 180.726987188098 BP Diastolic BP Location Tested BP Systolic [...] Weight in lbs Pre/Post Dialysis Refused Weight 157.111178175661 BP Diastolic BP Location Tested BP Systolic [...]
--- OUTSIDE RECORDS SUMMARY | 2024-10-11 00:56 | XMS_ITS | Encounter Summary ---
Author Organization [facility] Address [address] [address] Care Team Providers Care Office Service Coordinator Name Role Phone Lala Riggs PA-C Primary Care Provider [phone] Lala Riggs PA-C Primary Care Provider [phone] Lala Riggs PA-C Unavailable [phone] Marck Bonner MD Unavailable [phone] Haylie Yun [facility] Unavailable Unavailable Reason for Visit * Reason Onset Date Comments MEDICATION REFILL 08/15/2019 Encounter Details Date Type Department Care Team (Late st Contact Info) Description 08/15/2019 Refill [facility] - Family Medicine [address] [place] [address] Lala Riggs PA-C [address] [place] [address] MEDICATION REFILL Social History Tobacco [...] Visit [facility] [address] [place] [address] Chelsie Monet, REHAB ASSISTANT-INVOICE CLASSIFICATION CLERK [address] [place], [place] [address] documented as of this encounter Visit Diagnoses Not on filedocumented in this encounter Additional Health Concerns Infection Onset Date Last Indicated Resolved Time COVID-19 Under Investigation 04/17/2020 04/17/2020 04/19/2020 9:39 PM ORDER TAKER COVID-19 Under Investigation 07/19/2020 07/19/2020 07/20/2020 3:42 AM ORDER TAKER COVID-19 Under Investigation 05/03/2021 05/03/2021 05/04/2021 5:11 AM ORDER TAKER COVID-19 Under Investigation 06/10/2021 06/10/2021 06/11/2021 1:46 PM ORDER TAKER COVID-19 Confirmed 06/10/2021 06/10/2021 4:33 AM ORDER TAKER COVID-19 Under Investigation 06/03/2023 06/03/2023 06/04/2023 5:11 AM ORDER TAKER documented as of this encounter Care Teams Office Service Coordinator Relationship Specialty Start Date End Date Lala Riggs PA-C [address] [place] [phone] PCP - General Physician Aerial Planting And Cultivation Manager 10/18/12 09/07/22 Lala Riggs PA-C [address] [place] [address] [phone] PCP - General Physician Aerial Planting And Cultivation Manager 09/08/22 Lala Riggs PA-C [address] [place] [phone] Physician Aerial Planting And Cultivation Manager 09/08/22 Marck Bonner MD [address] [place] [address] Gastroenterology 02/09/15 Haylie Yun [facility] Behavioral Health Therapist 07/30/23 documented as of this encounter
--- OUTSIDE RECORDS SUMMARY | 2024-10-11 00:56 | XMS_ITS | Clinical Summary ---
Author Organization [facility] Address [address] [facility] [place] [address] Care Team Providers Care Protection Mgr Name Role Phone Lala Riggs PA-C Primary Care Provider [phone] Lala Riggs PA-C Unavailable [phone] Marck Bonner MD Unavailable [phone] Haylie Yun LCPC Unavailable Unavailable Source Comments [facility],non-owned Affiliates and Associated Physician Practices is amultiple site organization consisting of ambulatory clinics and hospital sitesin [place], [place], [place] and [place]. This disclosure is being madepursuant to the Care Everywhere program and may not contain all information available regarding this patient. Last updated 18.[facility] Allergies No known active allergies Medications * [...] migh t be different from the original. [facility] PCP Change Request form faxed 05/12/18 Problem [...] Description 09/12/2024 11:00 AM CDT Video Visit [facility] [address] [place] [address] Aron Allred MD Wennerstrom, Amber L, OCCUPATIONAL THERAPY SPECIALIST-COMPLIANCE ASSOCIATE Anxiety with depression ; Personality disorder (HCC); ADHD (attention deficit hyperactivity disorder), combined type 08/08/2024 Refill [facility] [address] [place] [phone] Chelsie Monet, OCCUPATIONAL THERAPY SPECIALIST-COMPLIANCE ASSOCIATE MEDICATION REFILL from Last 3 Months Immunizations [...] Recorded Patient Health Questionnaire-2 Score 0 12/10/2023 [facility] of Occupat ional Health - Occupational Stress [...] place to sleep or slept in a long-term (including now)? No 09/08/2022 [place] Depression Scale Answer Date Recorded [place] Depression Scale Total 10 09/17/2022 The thought [...] Comments Blood Pressure 103/62 05/20/2024 1:27 PM INJECTION MOLDING OPERATOR Pulse 100 05/20/2024 1:27 PM INJECTION MOLDING OPERATOR Temperature 36.9 C (98.5 F) 12/10/2023 1:20 PM CDT Respiratory Rate 18 09/11/2022 9:55 AM CDT Oxygen Saturation 100% 12/10/2023 1:20 PM CDT Inhaled Oxygen Concentration - - Weight 76.4 kg (168 lb 6.4 oz) 05/20/2024 1:27 P M INJECTION MOLDING OPERATOR Height 154.2 cm (5' 0.71) 05/20/2024 1:27 PM CS T Body Mass Index 32.12 05/20/2024 1:27 PM INJECTION MOLDING OPERATOR Plan of Treatment Upcoming Encounters Date Type Department Care Team (Late st Contact Info) Description 10/25/2024 4:00 PM CDT Office Visit [facility] [address] [place] [phone] Chelsie Monet, OCCUPATIONAL THERAPY SPECIALIST-COMPLIANCE ASSOCIATE [address], [place] [id number] Health Maintenance Due Date Last Done Comments [...] APTIMA REFLEX 16,18/45 Routine 07/07/2023 12:15 PM INJECTION MOLDING OPERATOR Well woman exam with routine gynecological exam Encounter for surveillance of contraceptive pills from Last 3 Months or Most Recently Relevant to Health Maintenance Results * PAP IG LB +HPV APTIMA REFLEX 16,18/45 (07/07/2023 12:15 PM INJECTION MOLDING OPERATOR) Diagnosis [facility] INSURANCE BILL Comment:NEGATIVE FOR INTRAEP ITHELIAL LESION OR MALIGNANCY. Specimen Adequacy [facility] INSURANCE BILL Comment: Satisfactory for evaluation. Endocervical and/or squamous metaplastic cells (endocervical component) are present. Clinician Provided ICD10 [facility] INSURANCE BILL Comment: Z01.419 Z30.41 [facility] Comment:Sue Pate Cyto technologist (ASCP) [...] UTERINE CERVIX / Unknown 07/07/2023 12:15 PM INJECTION MOLDING OPERATOR 07/07/2023 Narrative [facility] INSURANCE BILL - 07/10/2023 1:10 PM INJECTION MOLDING OPERATOR LMP / Prev Treat...LVV=[id number];None Other..............Oral Contraceptives No. of containers..01 ThinPrep Vial Resulting Agency Comment Lab Testing performed at: [address] [id number] Amaya Oliver OCCUPATIONAL THERAPY SPECIALIST-COMPLIANCE ASSOCIATE LAB - PATHOLOGY/CYTOLOGY ORD ERABLES Final Result [facility] INSURANCE BILL [address] [place] [address] from Last 3 Months or Most Recently Relevant to Health Maintenance Insurance MEDICAID - [place] [facility] Address: [facility] [address] [place] [address] MEDICAID - OUT OF [facility] THIRD LIBERTARIAN LIABILITY [facility] Advance Directives * Full Code (Latest Code Status on File) Date Activated Date Inactivated Comments 09/08/2022 3:54 PM 09/11/2022 4:12 PM Care Teams Protection Mgr Relationship Specialty Start Date End Date Lala Riggs PA-C [address] [place] [phone] PCP - General Physician Cardiology Associate 09/08/22 Lala Riggs PA-C [address] [place] [phone] Physician Cardiology Associate 09/08/22 Marck Bonner MD [address] [address] Gastroenterology 02/09/15 Haylie Yun LCPC Behavioral Health Therapist 07/30/23
[2024-10-11] MEDS: ACETAMINOPHEN 500 MG TABLET 1000 MG PO (09:15)
[2024-10-11] MEDS: KETOROLAC 15 MG/ML VIAL (*BKC) IV PUSH (09:15)
[2024-10-11 09:24] LABS: BEDSIDEPREGUCG Negative (Negative)
--- NOTE | 2024-10-11 10:20 | P.HP_ITS ---
H&P: HPI History of Present Illness Date/Time: 10/11/24 10:20 Chief Complaint: Unwanted fertility Narrative: This patient is a 34-year-old female who desires sterilization. We have agreed to perform laparoscopic bilateral salpingectomy. She understands risks, benefits, and alternatives. She has completed informed consent process is ready to proceed The patient understands the details of the procedure. The procedure has been explained in detail. She understands the risks. She understands that injuries may occur that result in hospitalization, more surgery, and severe illness. She understands risk of hemorrhage and infection. She denies any chest pain or shortness of breath. She denies any nausea, vomiting, fever, chills. Review of Systems Review of Systems: All systems reviewed & are unremarkable except as noted in HPI and below Constitutional: Constitutional: Denies chills, Denies fatigue, Denies fever(s) and Denies weakness Eyes: Eyes: Denies blurry vision, Denies change in vision, Denies loss of pe ripheral vision, Denies loss of vision, Denies other visual disturbances and Denies eye pain ENT: Denies vertigo, Denies dizziness, Denies hearing loss, Denies mouth pain, Denies nasal obstruction, Denies neck mass and Denies neck pain Cardiovascular: Cardiovascular: Denies chest pain, Denies diaphoresis, Denies syncope, Denies leg edema and Denies dyspnea Respiratory: Respiratory: Denies chest congestion, Denies cough, Denies hemoptysis, Denies dyspnea and Denies wheezing Gastrointestinal: Gastrointestinal: Denies abdominal pain, Denies constipation, Denies diarrhea, Denies nausea and Denies vomiting Genitourinary: Genitourinary: Denies hematuria, Denies change in libido, Denies nocturia, Denies genital lesions, Denies flank pain and Denies urinary urgency Musculoskeletal: Musculoskeletal: Denies abnormal gait, Denies back pain, Denies myalgias, Denies arthralgias, Denies joint swelling, Denies muscle weakness and Denies neck pain Integumentary/Breasts: Skin/Breast: Denies swelling, Denies breast pain, Denies breast mass, Denies dry skin, Denies nipple discharge, Denies unusual bruising and Denies jaundice Neurologic: Denies Neuro-related abnormal movements, Denies Abnormal speech present, Denies abnormal gait, Denies behavioral changes, Denies confusion, Denies vertigo, Denies dizziness, Denies syncope, Denies loss of vision, Denies memory loss, Denies convulsions and Denies weakness Psychiatric: Psychiatric: Denies abnormal sleep pattern, Denies behavioral changes, Denies change in libido, Denies confusion, Denies depression, Denies anhedonia and Denies memory loss Endocrine: Endocrine: Reports no additional endocrine complaints, Denies change in libido and Denies fatigue Hematologic/Lymphatic: Hematologic/Lymphatic: Reports no additional hematologic/lymphatic complaints Allergic/Immunologic: Allergic/Immunologic: Reports no additional allergic/immunologic complaints and Denies wheezing [facility] Past Medical History Medical History (Updated 10/11/24 @ 10:22 by Modesto Ying MD) Obesity Social History Social History Smoking status: Never smoker Second hand tobacco smoke exposure: No Substance use: former Substance use type: painkillers 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 Do You Feel Safe in your Home?: Yes Lack of Transportation: No Lack of Food: Never True Current Housing: I Have Housing Concerned About Future Housing: No Difficulty Paying Gas/Electric Bills: YES Difficulty Paying for Meds: No Currently Unemployed: No Education: Bachelor's Degree Difficulty w/ Childcare or Family Care: No Living arrangements: with family Spiritual care concerns: No Meds Home Medications and Allergies Home Medications ?Medication ?Instructions ?Recorded ?Confirmed ?Type escitalopram oxalate 20 mg tablet 20 mg PO DAILY 07/14/24 10/11/24 History (Lexapro) ferrous sulfate 325 mg (65 mg 325 mg PO DAILY 07/14/24 10/11/24 History iron) tablet (Feosol) omeprazole 20 mg capsule,delayed 20 mg PO DAILY 07/14/24 09/30/24 History release ibuprofen 600 mg tablet 600 mg PO Q6H #60 tabs 07/18/24 09/30/24 Rx lisdexamfetamine 40 mg capsule 40 mg PO DAILY 09/30/24 10/11/24 History (Vyvanse) omega 7-hsb-zcp-fish oil 1,200 mg 1 cap PO DAILY 09/30/24 10/11/24 History (144 mg-216 mg) capsule (Fish Oil) Allergies Allergy/AdvReac Type Severity Reaction Status Date / Time No Known Allergies Allergy Verified 10/11/24 09:19 Vital Signs Vital Signs - 24 hr 10/11/24 09:00 Temperature 96.5 F L Pulse Rate 98 Respiratory Rate 14 Blood Pressure 105/84 Pulse Oximetry 100 Oxygen Delivery Room Air Exam Const: General: cooperative, healthy appearing, comfortable and no acute distress Orientation/consciousness: oriented to person, oriented to place and oriented to time HENMT: Head: normal to inspection Ears: external ears normal Face/Nose/Sinus: Normal external nose present and normal facial exam Face and sinus: normal facial exam Eyes: General: appearance normal, both eyes and all related structures Neck: Neck: normal visual inspection, trachea midline and supple Resp: Auscultation: clear to auscultation bilaterally, no crackles, no rales, no rhonchi and no wheezes Cardio: Rate: regular rate Rhythm: regular rhythm Heart sounds: no click, no murmurs and no rubs GI: GI Palp: No abdominal tenderness, No Soft to palpation, No Tenderness to palpation present (GI) and No Palpable mass present Auscultation: normal bowel sounds Skin: General skin exam: normal color and no rashes or lesions noted Neuro: General: oriented to person, oriented to place and oriented to time Extrem: General: normal to inspection, no joint enlargement, no clubbing, cyanosis or edema, no pedal edema and no calf tenderness Psych: Appearance: grossly normal Mental Status: mental status grossly normal Speech and movement: Normal speech and movement present Assessment and Plan Assessment and plan (1) Encounter for female sterilization procedure: Code(s): Z30.2 - Encounter for sterilization Status: Acute Plan This patient is a 34-year-old female who desires sterilization. We have agreed to perform laparoscopic bilateral salpingectomy. She understands risks, benefits, and alternatives. She has completed informed consent process is ready to proce
--- NOTE | 2024-10-11 10:20 | WPDHPUPDATE1 ---
History and Physical Update Update Date/Time: 10/11/24 10:20 History and Physical has been reviewed, including an updated exam of the patient. There are NO changes in the patient's condition. Risks, benefits, and alternatives have been discussed and questions answered. Patient agrees to proceed with procedure.
--- NOTE | 2024-10-11 10:23 | WPDANESEPPF ---
Anes - Initial Pre Proc Eval Procedure: Operation Date: 10/11/24 10:00 Proposed Procedures p Laparoscopic Bilateral Salpingectomy - Modesto Ying MD Date/Time: 10/11/24 10:23 Surgeon: Modesto Ying MD Pre Op Diagnosis: Female Sterilization Patient Data Age: 34 Gender: F Height: 1.52 m Weight: 72.8 kg Last Vital Signs Temp 35.8 C L 10/11/24 09:00 Pulse 98 10/11/24 09:00 Resp 14 10/11/24 09:00 BP 105/84 10/11/24 09:00 Pulse Ox 100 10/11/24 09:00 O2 Del Method Room Air 10/11/24 09:00 Allergies Allergy/AdvReac Type Severity Reaction Status Date / Time No Known Allergies Allergy Verified 10/11/24 09:19 Home Medications ?Medication ?Instructions ?Recorded ?Confirmed ?Type escitalopram oxalate 20 mg tablet 20 mg PO DAILY 07/14/24 10/11/24 History (Lexapro) ferrous sulfate 325 mg (65 mg 325 mg PO DAILY 07/14/24 10/11/24 History iron) tablet (Feosol) omeprazole 20 mg capsule,delayed 20 mg PO DAILY 07/14/24 09/30/24 History release ibuprofen 600 mg tablet 600 mg PO Q6H #60 tabs 07/18/24 09/30/24 Rx lisdexamfetamine 40 mg capsule 40 mg PO DAILY 09/30/24 10/11/24 History (Vyvanse) omega 4-vrg-atm-fish oil 1,200 mg 1 cap PO DAILY 09/30/24 10/11/24 History (144 mg-216 mg) capsule (Fish Oil) Laboratory Tests 10/11/24 08:30 POC Urine HCG, Qual Negative (Negative) Patient hx anesthesia problems: none Family hx anesthesia problems: none Results Review: All pre-operative results and documents have been reviewed as part of the pre-operative evaluation. 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 Do You Feel Safe in your Home?: Yes Lack of Transportation: No Lack of Food: Never True Current Housing: I Have Housing Concerned About Future Housing: No Difficulty Paying Gas/Electric Bills: YES Difficulty Paying for Meds: No Currently Unemployed: No Education: Bachelor's Degree Difficulty w/ Childcare or Family Care: No Living arrangements: with family Spiritual care concerns: No Anes - Eval Final PreProcedure Day of Procedure 10/11/24 10:23 Patient weight: obese Heart: regular rate and rhythm Lungs: clear to auscultation Airway: Mallampati scale class II Neurological: alert and oriented Last oral intake: >/= 8 hours ASA classification: II Emergent: no Anesthetic plan: proceed Anesthesia type and monitoring: general ETT and standard monitoring Results Review: All pre-operative results and documents have been reviewed as part of the pre-operative evaluation. Informed Consent: The patient's anesthetic plan and its attendant risks and benefits were discussed with the patient/family/POA. Questions were solicited and answers provided to the satisfaction of the patient/family/POA.
--- NOTE | 2024-10-11 11:19 | S_PTH ---
PATIENT: Jessica Ball LOC: [facility] U#:[id number] AGE/SX: 34/F ROOM: RE10/11/[address]: Modesto Ying MD : 1990 BED: DIS: 10/11/2024 SPEC #: [id number] RECD: 10/11/24 13:53 STATUS: VALDEMAR REYesica #: [id number] SYED: 10/11/24 11:[address]: Modesto Ying DEPT: [facility] Surgical RECD BY: Mickey Waterman Tissues: A - Skin B - Fallopian Tube Bilateral Procedures: Gross and Microscopic Level 2 Hematoxylin and Eosin Stain Gross and Microscopic Level 4
--- NOTE | 2024-10-11 11:27 | P.OP_ITS ---
Procedure Note - Detailed Date of Procedure 10/11/24 Pre-op Diagnosis Female Sterilization Post-op Diagnosis Same Procedure Performed Laparoscopic bilateral salpingectomy Surgeon Modesto Ying MD Anesthesia General Indications Unwanted fertility Findings Normal pelvic anatomy Description of Procedure The patient was taken the operating room. She was prepped and draped in the dorsal lithotomy position after induction of general anesthesia. A 5 mm skin incision was made in the left upper quadrant of the abdominal skin. A 5 mm trocar was inserted the intra-abdominal cavity under direct visualization of the scope. Pneumoperitoneum was achieved. A 5 mm trocar was inserted in the left lower quadrant identical fashion. A 5 mm infraumbilical trocar was inserted in identical fashion as well. The bilateral fallopian tubes were removed. This was done by using a LigaSure cautery. The mesosalpinx adjacent to the tube was cauterized transected with LigaSure. This was initiated in the area the ovary and in a stepwise fashion moved medially to the area of the cornu of the uterus. Once there the fallopian tube was cauterized and transected. This was done in identical fashion on each side. The fallopian tubes were taken out through the left lower quadrant trocar site. The pneumoperitoneum was reduced. The trocars removed. The skin was closed with subcuticular 4 Monocryl and covered with De rmabond. She was taken to cover stable condition. Sponge lap and needle counts were correct x2. Estimated Blood Loss 5 Drains No Packing No Pathology Yes Complications No immediate complications Condition Stable Disposition PACU
[2024-10-11] MEDS: LACTATED RINGERS 1,000 ML 30 ML IV CONT (11:36)
== END 2024-10-11 13:40 | disposition home or self-care (01) ==
PROVIDERS: Visit Provider Obstetrics & Gynecology
PROC: (CPT 49320; principal; 2024-10-11 10:00)
DX: Z30.2 Encounter for sterilization (principal); D22.5 Melanocytic nevi of trunk; E66.9 Obesity, unspecified; Z68.31 Body mass index [BMI] 31.0-31.9, adult
CPT/HCPCS: 58661; 11400; 88302; 88305; A9270; J1885; J2003; J2250; J2405; J2704; J3010; J7120